=== PATIENT | female | born 1965 | race Hispanic/Latino ===

== ENCOUNTER 2017-11-01 00:24 | Observation (INO) | payer BC ==
[2017-11-01] MEDS ORDERED: NA CHLORIDE 0.9% 1,000 ML ONE (01:07)
[2017-11-01 01:27] LABS: Absolute Monocytes 0.3 K/uL (0.1-1.3); Absolute Neutrophil 2.3 K/uL (1.8-8.0); Basophils % 0.4 % (0-1.3); Eosinophils % 2.7 % (0-4.4); Hematocrit 37.1 % (36.0-45.0); Lymphocytes % 41.8 % (15.3-44.8); MCH 22.6 pg (27.0-35.0); MCV 70.8 fL (80-100); MPV 9.4 fL (7.6-11.3); Monocytes % 7.1 % (3.3-12.3); RBC Red Blood Cell Count 5.23 M/uL (3.86-4.86)
[2017-11-01 01:30] LABS: Protime INR 0.98
[2017-11-01 01:47] LABS: Urine Blood 2+ (NEG); Urine Glucose NEGATIVE (NEG); Urine Protein NEGATIVE (NEG); Urine Specific Gravity 1.015 (1.005-1.030); Urine pH 5.5 (5.0-7.0)
[2017-11-01 01:50] LABS: ALT/SGPT 46 U/L (12-78); AST/SGOT 33 U/L (15-37); Alkaline Phosphatase 147 U/L (45-117); BUN Blood Urea Nitrogen 10 mg/dL (7-18); Bicarbonate 28 mmol/L (21-32); Bilirubin Direct 0.2 mg/dL (0-0.2); Bilirubin Total 0.6 mg/dL (0.2-1.0); Creatine Phosphokinase 139 U/L (26-192); Glucose Level 99 mg/dL (74-106); Lipase 243 U/L (73-393); Magnesium 1.9 mg/dL (1.8-2.4); NT PRO-BNP 32 pg/mL (<125); Potassium 3.5 mmol/L (3.5-5.1); Protein, Total 7.8 g/dL (6.4-8.2); Sodium Level 143 mmol/L (136-145)
[2017-11-01] MEDS ORDERED: ASPIRIN 81 MG CHEWABLE TABLET ONE (01:58)
--- NOTE | 2017-11-01 01:58 | EDPHYS ---
Physician Documentation [facility] Name: Katy Randall Age: 52 yrs Sex: Female : 1965 Arrival Date: 11/01/2017 Time: 00:25 Bed 17 Private MD: Willie Hernández B ED Physician Dominik Iqbal HPI: 11/01 01:54 This 52 yrs old Female presents to ER via Ambulatory with complaints of venancio Dizziness, Vision Problem, Chest Pain. 01:54 The patient presents with dizziness, generalized weakness, lightheadedness. Onset: The venancio symptoms/episode began/occurred 3 day(s) ago. Context: occurred at home. Modifying factors: The symptoms are alleviated by nothing, the symptoms are aggravated by nothing. Associated signs and symptoms: The patient has no apparent associated signs or symptoms. Severity of symptoms: At their worst the symptoms were mild moderate in the emergency department the symptoms are unchanged. Patient's baseline: Neuro: alert and fully oriented. The patient has not experienced similar symptoms in the past. 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 ak1 Historical: - Allergies: 00:45 No Known Allergies; ak1 - Home Meds: 00:45 Iron CR Oral [Active]; ak1 - PMHx: 00:45 Anemia; Polio; Migraines; ak1 - PSHx: 00:45 Knee surgery; ; Cholecystectomy; ak1 - Immunization history:: Adult Immunizations unknown. - Social history:: Smoking status: Patient/guardian denies using tobacco. - Ebola Screening: : No symptoms or risks identified at this time. - Family history:: not pertinent. ROS: 01:54 Constitutional: Negative for fever, chills, and weight loss, Eyes: Negative for injury, venancio pain, redness, and discharge, ENT: Negative for injury, pain, and discharge, Neck: Negative for injury, pain, and swelling, Respiratory: Negative for shortness of breath, cough, wheezing, and pleuritic chest pain, Abdomen/GI: Negative for abdominal pain, nausea, vomiting, diarrhea, and constipation, Back: Negative for injury and pain. 01:54 : Negative for injury, bleeding, discharge, and swelling, MS/Extremity: Negative for injury and deformity, Skin: Negative for injury, rash, and discoloration, Neuro: Negative for headache, weakness, numbness, tingling, and seizure, Psych: Negative for depression, anxiety, suicide ideation, homicidal ideation, and hallucinations, Allergy/Immunology: Negative for hives, rash, and allergies, Endocrine: Negative for neck swelling, polydipsia, polyuria, polyphagia, and marked weight changes, Hematologic/Lymphatic: Negative for swollen nodes, abnormal bleeding, and unusual bruising. 01:54 Cardiovascular: Positive for chest pain. Exam: 01:54 Constitutional: This is a well developed, well nourished patient who is awake, alert, venancio and in no acute distress. Head/Face: Normocephalic, atraumatic. Eyes: Pupils equal round and reactive to light, extra-ocular motions intact. Lids and lashes normal. Conjunctiva and sclera are non-icteric and not injected. Cornea within normal limits. Periorbital areas with no swelling, redness, or edema. ENT: Nares patent. No nasal discharge, no septal abnormalities noted. Tympanic membranes are normal and external auditory canals are clear. Oropharynx with no redness, swelling, or masses, exudates, or evidence of obstruction, uvula midline. Mucous membranes moist. Neck: Trachea midline, no thyromegaly or masses palpated, and no cervical lymphadenopathy. Supple, full range of motion without nuchal rigidity, or vertebral point tenderness. No Meningismus. Chest/axilla: Normal chest wall appearance and motion. Nontender with no deformity. No lesions are appreciated. Cardiovascular: Regular rate and rhythm with a normal S1 and S2. No gallops, murmurs, or rubs. Normal PMI, no JVD. No pulse deficits. Respiratory: Lungs have equal breath sounds bilaterally, clear to auscultation and percussion. No rales, rhonchi or wheezes noted. No increased work of breathing, no retractions or nasal flaring. Abdomen/GI: Soft, non-tender, with normal bowel sounds. No distension or tympany. No guarding or rebound. No evidence of tenderness throughout. Back: No spinal tenderness. No costovertebral tenderness. Full range of motion. Female : Normal external genitalia. Skin: Warm, dry with normal turgor. Normal color with no rashes, no lesions, and no evidence of cellulitis. MS/ Extremity: Pulses equal, no cyanosis. Neurovascular intact. Full, normal range of motion. Neuro: Awake and alert, GCS 15, oriented to person, place, time, and situation. Cranial nerves II-XII grossly intact. Motor strength 5/5 in all extremities. Sensory grossly intact. Cerebellar exam normal. Normal gait. Vital Signs: 00:45 BP 149 / 93; Pulse 98; Resp 18; Temp 98.4; Pulse Ox 97% on R/A; Weight 92.08 kg (R); ak1 Height 5 ft. 4 in. (162.56 cm) (R); Pain 4/10; 01:45 BP 136 / 78; Pulse 90; Resp 16 S; Pulse Ox 98% on R/A; bs1 02:45 BP 121 / 108; Pulse 83; Resp 17 S; Pulse Ox 100% on R/A; bs1 03:45 BP 132 / 76; Pulse 91; Resp 17; Temp 98(O); Pulse Ox 96% on R/A; Pain 0/10; bs1 00:45 Body Mass Index 34.84 (92.08 kg, 162.56 cm) ak1 MDM: 00:42 Patient medically screened. [facility] 01:54 Data reviewed: vital signs, nurses notes, lab test result(s), EKG, radiologic studies, [facility] CT scan, plain films. 11/01 00:43 Order name: Basic Metabolic Panel venancio 11/01 00:43 Order name: CBC with Diff; Complete Time: 01:53 venancio 11/01 00:43 Order name: Ckmb; Complete Time: 02:57 venancio 11/01 00:43 Order name: CPK; Complete Time: 02:57 venancio 11/01 00:43 Order name: LFT's; Complete Time: 02:57 venancio 11/01 00:43 Order name: Magnesium; Complete Time: 02:57 venancio 11/01 00:43 Order name: NT PRO-BNP; Complete Time: 02:57 venancio 11/01 00:43 Order name: PT-INR; Complete Time: :53 venancio 11/01 00:43 Order name: Ptt, Activated; Complete Time: 01:53 venancio 11/01 00:43 Order name: Troponin (emerg Dept Use Only); Complete Time: 01:53 venancio 11/01 00:43 Order name: Lipase; Complete Time: 02:57 venancio 11/01 00:43 Order name: Basic Metabolic Panel; Complete Time: 02:57 EDMS 07/10 01:43 Order name: Urine Dipstick--Ancillary (enter results); Complete Time: 01:53 [facility] 11/01 01:43 Order name: Urine --Ancillary (enter results); Complete Time: :53 [facility] 11/01 00:43 Order name: XRAY Chest (1 view) [facility] 11/01 00:43 Order name: EKG; Complete Time: 00:44 [facility] 11/01 00:43 Order name: Cardiac monitoring; Complete Time: :30 [facility] 11/01 00:43 Order name: EKG - Nurse/Tech; Complete Time: 01:02 [facility] 11/01 00:43 Order name: IV Saline Lock; Complete Time: : [facility] 11/01 00:43 Order name: Labs collected and sent; Complete Time: [facility] 11/01 00:43 Order name: O2 Per Protocol; Complete Time: :30 [facility] 11/01 00:43 Order name: O2 Sat Monitoring; Complete Time: :30 [facility] 11/01 00:43 Order name: Urine Dipstick-Ancillary (obtain specimen); Complete Time: 01: [facility] 11/01 01:53 Order name: CT Head Brain wo Cont [facility] 11/01 02:01 Order name: CONS Physician Consult EDGA Administered Medications: 01:30 Drug: NS 0.9% 1000 ml Route: IV; Rate: 125 ml/hr; Site: right antecubital; bs1 04:18 Follow up: IV Status: Infusion continued upon admission bs1 01:57 Drug: Aspirin 162 mg Route: PO; bs1 04:19 Follow up: Response: No adverse reaction bs1 04:10 Drug: Lovenox 90 mg Route: Sub-Q; Site: right lower abdomen; bs1 04:18 Follow up: Response: No adverse reaction bs1 Disposition: 11/01/17 01:57 Hospitalization ordered by Ridge Sue for Observation. Preliminary diagnosis are Other chest pain, Dizziness and giddiness. - Bed requested for Telemetry/MedSurg (observation). - Status is Observation. bs1 - Condition is Stable. - Problem is new. - Symptoms have improved. UTI on Admission? No Signatures: Dispatcher [employer] EDGA Nila Juarez RN RN mw Anderson, Corey, MD MD cha Krenek, Amber, RN RN ak1 Regine Woodruff RN RN bs1 Corrections: (The following items were deleted from the chart) 02:09 01:57 Hospitalization Ordered by Ridge Sue MD for Observation. Preliminary mw diagnosis is Other chest pain; Dizziness and giddiness. Bed requested for Telemetry/MedSurg (observation). Status is Observation. Condition is Stable. Problem is new. Symptoms have improved. UTI on Admission? No. [facility] 04:23 02:09 11/01/2017 01:57 Hospitalization Ordered by Ridge Sue MD for Observation. bs1 Preliminary diagnosis is Other chest pain; Dizziness and giddiness. Bed requested for Telemetry/MedSurg (observation). Status is Observation. Condition is Stable. Problem is new. Symptoms have improved. UTI on Admission? No. mw
--- NOTE | 2017-11-01 01:58 | ER ---
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 bilateral eye pain and redness X2 days. Transition of care: patient was not received from another setting of care. Onset of symptoms is unknown. Risk Assessment: Do you want to hurt yourself or someone else? Patient reports no desire to harm self or others. Initial Sepsis Screen: Does the patient meet any 2 criteria? No. Patient's initial sepsis screen is negative. Does the patient have a suspected source of infection? No. Patient's initial sepsis screen is negative. Care prior to arrival: None. 00:42 Method Of Arrival: Ambulatory ak1 00:42 Acuity: ALEXEY 3 ak1 Triage Assessment: 00:45 General: Appears in no apparent distress. Behavior is calm, cooperative. 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 ak1 Historical: - Allergies: 00:45 No Known Allergies; ak1 - Home Meds: 00:45 Iron CR Oral [Active]; ak1 - PMHx: 00:45 Anemia; Polio; Migraines; ak1 - PSHx: 00:45 Knee surgery; ; Cholecystectomy; ak1 - Immunization history:: Adult Immunizations unknown. - Social history:: Smoking status: Patient/guardian denies using tobacco. - Ebola Screening: : No symptoms or risks identified at this time. - Family history:: not pertinent. Screenin:46 Abuse screen: Denies threats or abuse. Denies injuries from another. Nutritional ak1 screening: No deficits noted. Tuberculosis screening: No symptoms or risk factors identified. Fall Risk Ambulatory Aid- Crutches/Cane/Walker (15 pts). Assessment: 00:55 General: Appears in no apparent distress. uncomfortable, Behavior is cooperative, bs1 appropriate for age, flat. Pain: Complains of pain in left side of chest Pain does not radiate. Pain began gradually. 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 Gait is steady, Speech is normal, Facial symmetry appears normal, Pupils are PERRLA, Intact. Neuro: Reports blurred vision dizziness, headache weakness. Cardiovascular: Reports chest pain, Denies shortness of breath, Heart tones S1 S2 present Capillary refill < 3 seconds Patient's skin is warm and dry. Respiratory: Airway is patent Trachea midline Respiratory effort is even, unlabored, Respiratory pattern is regular, symmetrical. GI: No signs and/or symptoms were reported involving the gastrointestinal system. : Reports vaginal bleeding that is spotty, x3 days. EENT: Eyes bilateral eyes slightly red. Derm: Skin is intact, Skin is pink, warm \\T\\ dry. normal. Musculoskeletal: Circulation, motion, and sensation intact. Capillary refill < 3 seconds, Range of motion: intact in all extremities. 02:00 Reassessment: No changes from previously documented assessment. Patient and/or family bs1 updated on plan of care and expected duration. Pain level reassessed. Patient is alert, oriented x 3, equal unlabored respirations, skin warm/dry/pink. 03:45 Reassessment: Patient appears in no apparent distress at this time. Patient and/or bs1 family updated on plan of care and expected duration. Pain level reassessed. Patient is alert, oriented x 3, equal unlabored respirations, skin warm/dry/pink. Patient being admitted, pending results of head CT Patient states symptoms have improved. Vital Signs: 00:45 BP 149 / 93; Pulse 98; Resp 18; Temp 98.4; Pulse Ox 97% on R/A; Weight 92.08 kg (R); ak1 Height 5 ft. 4 in. (162.56 cm) (R); Pain 4/10; 01:45 BP 136 / 78; Pulse 90; Resp 16 S; Pulse Ox 98% on R/A; bs1 02:45 BP 121 / 108; Pulse 83; Resp 17 S; Pulse Ox 100% on R/A; bs1 03:45 BP 132 / 76; Pulse 91; Resp 17; Temp 98(O); Pulse Ox 96% on R/A; Pain 0/10; bs1 00:45 Body Mass Index 34.84 (92.08 kg, 162.56 cm) ak1 ED Course: 00:25 Patient arrived in ED. ds1 00:25 Willie Hernández MD is Private Physician. ds1 00:42 Dominik Iqbal MD is Attending Physician. venancio 00:44 Triage completed. ak1 00:45 Arm band placed on Patient placed in an exam room, on a stretcher, on pulse oximetry, ak1 Patient notified of wait time. 00:45 Inserted saline lock: 20 gauge in right antecubital area, using aseptic technique. bs1 Blood collected. 00:46 Patient has correct armband on for positive identification. Bed in low position. Call ak1 light in reach. Side rails up X 1. Pulse ox on. NIBP on. 00:46 Patient maintains SpO2 saturation greater than 95% on room air. ak1 00:55 X-ray completed. Portable x-ray completed in exam room. Patient tolerated procedure kw well. 00:56 XRAY Chest (1 view) In Process Unspecified. EDMS 01:01 Regine Woodruff RN is Primary Nurse. bs1 01:57 Ridge Sue MD is Hospitalizing Provider. venancio 04:20 No provider procedures requiring assistance completed. Patient admitted, IV remains in bs1 place. intact. Administered Medications: 01:30 Drug: NS 0.9% 1000 ml Route: IV; Rate: 125 ml/hr; Site: right antecubital; bs1 04:18 Follow up: IV Status: Infusion continued upon admission bs1 01:57 Drug: Aspirin 162 mg Route: PO; bs1 04:19 Follow up: Response: No adverse reaction bs1 04:10 Drug: Lovenox 90 mg Route: Sub-Q; Site: right lower abdomen; bs1 04:18 Follow up: Response: No adverse reaction bs1 Outcome: 01:57 Decision to Hospitalize by Provider. venancio 04:21 Admitted to Med/surg accompanied by tech, via wheelchair, room 225, with chart, Report bs1 called to JODI Quiles 04:21 Condition: stable 04:21 Instructed on the need for admit. 04:23 Patient left the ED. bs1 Signatures: Dispatcher [employer] EDFL Dominik Iqbal MD MD cha Sanford, Demi ds1 Mikki Triplett Amber, RN RN ak1 Regine Woodruff, RN RN bs1
[2017-11-01 02:00] LABS: CKMB Creatine Kinase MB < 1.0 ng/mL (0.3-3.6)
--- NOTE | 2017-11-01 03:31 | P.HP ---
Certification for Inpatient Patient admitted to: Observation With expected LOS: <2 Midnights Practitioner: I am a practitioner with admitting privileges, knowledge of patient current condition, hospital course, and medical plan of care. Services: Services provided to patient in accordance with Admission requirements found in Title 42 Section 412.3 of the Code of Federal Regulations Patient History Date of Service: 11/01/17 Reason for admission: chest pain History of Present Illness: Ms Randall is a 52 years old woman with history migraines, Polio and anemia, came to ED complaining of chest pain. Her symptoms started about 3 days ago, on and off. Today, the pain is constant, substernal in location, pressure like, 10/ 10 of intensity, associated with SOB, nausea and fatigue. She denied diaphoresis or palpitations. The pain does not radiate. She has never had this pain before. EKG shows non-specific T wave inversion, initial Trop I, is negative. Allergies No Known Allergies Allergy (Unverified 12/26/15 00:33) Home medications list reviewed: Yes - Past Medical/Surgical History -: anemia -: polio -: migraines -: knee surgery -: -: Cholecystectomy - Family History Family History: Reviewed- Non-Contributory - Social History Smoking Status: Never smoker Alcohol use: No CD- Drugs: No Caffeine use: No Place of Residence: Home Review of Systems 10-point ROS is otherwise unremarkable Physical Examination - Physical Exam General: Alert, In no apparent distress HEENT: Atraumatic, PERRLA, Mucous membr. moist/pink, EOMI, Sclerae nonicteric Neck: Supple, 2+ carotid pulse no bruit, No LAD, Without JVD or thyroid abnormality Respiratory: Clear to auscultation bilaterally, Normal air movement Cardiovascular: Regular rate/rhythm, Normal S1 S2 Gastrointestinal: Normal bowel sounds, No tenderness Musculoskeletal: No tenderness Integumentary: No rashes Neurological: Normal speech, Normal strength at 5/5 x4 extr, Normal tone, Normal affect Lymphatics: No axilla or inguinal lymphadenopathy - Studies Laboratory Data (last 24 hrs) 11/01/17 01:00: PT 11.6, INR 0.98, APTT 27.9 11/01/17 01:00: WBC 4.9, Hgb 11.8 L, Hct 37.1, Plt Count 133 L 11/01/17 01:00: Sodium 143, Potassium 3.5, BUN 10, Creatinine 0.90, Glucose 99, Magnesium 1.9, Total Bilirubin 0.6, AST 33, ALT 46, Alkaline Phosphatase 147 H, Lipase 243 Assessment and Plan - Problems (Diagnosis) (1) Chest pain Current Visit: Yes Status: Acute Qualifiers: Chest pain type: precordial pain Qualified Code(s): R07.2 - Precordial pain (2) Migraines Current Visit: Yes Status: Acute - Plan Ms Randall will be admitted to the hospital due to chest pain. EKG shows Non- specific T was inversion, initial troponin I is negative. Will order serial tropoinin I, and EKG - Advance Directives Does patient have a Living Will: No Does patient have a Durable POA for Healthcare: No - Code Status/Comfort Care Code Status Assessed: Yes Code Status: Full Code
[2017-11-01] MEDS ORDERED: ENOXAPARIN 100 MG/ML SYR SQ ONE (04:06)
[2017-11-01 04:34] VITALS: O2SAT 96
[2017-11-01] MEDS ORDERED: ACETAMINOPHEN 500 MG TAB PO PRN (05:14)
[2017-11-01] MEDS ORDERED: ONDANSETRON 4 MG/2 ML VIAL IV PRN (05:14)
[2017-11-01] MEDS ORDERED: NA CHLORIDE 0.9% 1,000 ML IV SCH (05:14)
[2017-11-01 05:38] VITALS: BMI 35.2
[2017-11-01] MEDS ORDERED: POTASSIUM 25 MEQ EFFERV TAB PO ONE (06:30)
--- NOTE | 2017-11-01 08:36 | EKG ---
Test Date: 2017-11-01 Test Time: 00:44:43 Director Shopper Marketing: JORGE ALBERTO MEASUREMENT RESULTS: Intervals: Rate: 87 AL: 172 QRSD: 94 QT: 358 QTc: 430 [place]: P: 49 AL: 172 QRS: 45 T: 55 INTERPRETIVE STATEMENTS: Normal sinus rhythm Cannot rule out Anterior infarct, age undetermined Abnormal ECG Compared to ECG 12/25/2015 19:50:43 Myocardial infarct finding now present T-wave abnormality no longer present Electronically Signed On 11-01-17 08:35:11 CDT by Law Faustin
--- NOTE | 2017-11-01 08:41 | RAD REPORT ---
EXAM DESCRIPTION: RAD - Chest Single View - 11/01/2017 12:56 am CLINICAL HISTORY: CHEST PAIN Chest pain. COMPARISON: No comparisons FINDINGS: Portable technique limits examination quality. The lungs are grossly clear. The heart is normal in size. No displaced fractures. IMPRESSION: No acute intrathoracic process suspected.
--- NOTE | 2017-11-01 08:59 | RAD REPORT ---
EXAM DESCRIPTION: CT - Head Brain Wo Cont - 11/01/2017 6:43 am CLINICAL HISTORY: HEADACHE COMPARISON: Head Brain Wo Cont dated 12/25/2015 TECHNIQUE: All CT scans are performed using dose optimization technique as appropriate and may inclu de automated exposure control or mA/KV adjustment according to patient size. FINDINGS: No intracranial hemorrhage, hydrocephalus or extra-axial fluid collection.No areas of brai n edema or evidence of midline shift. The paranasal sinuses and mastoids are clear. The calvarium is intact. IMPRESSION: No acute intracranial abnormality.
[2017-11-01] MEDS ORDERED: ENOXAPARIN 40 MG/0.4 ML SQ SCH (09:00)
[2017-11-01] MEDS ORDERED: ALPRAZOLAM 0.25 MG TABLET PO PRN (11:34)
[2017-11-01 17:23] VITALS: BP 141/81; TEMP 98.3
--- NOTE | 2017-11-02 02:15 | CON ---
Date of Consultation: 11/01/[address] to Dr[address] Figueroa's service on 11/01/2017. I saw the patient on 11/01/2017. Reason For Consultation: Chest pain and hypertension. History Of Present Illness: Ms. Randall is a 52-year-old woman, has had a history of polio as a chil d when she was [id number]. She has had history of chronic anemia for which she used to get transfu claudette at one point. She does not have any past cardiac history. She normally sees Dr. Willie Hernández in the clinic. She came in with chest pressure that has been going on for 2 days, slightly hypertens chiquis, dizzy, short of breath. Denied PND, orthopnea, pedal edema, palpitations, or syncope. Allergies: NONE. Review of Systems: Positive for some stress. Family History: Positive for lupus, coronary artery disease, and parkinsonism. Social History: Negative for tobacco, alcohol, or drugs. Physical Examination: Vital Signs: Stable. She was afebrile. HEENT Exam: Negative. Neck: Supple without any bruit, lymphadenopathy, JVD, or thyromegaly. Chest: Clear to auscultation and percussion. Cardiac Exam: Revealed a regular rhythm and rate without any murmurs, gallops, or rubs. Abdomen: Benign. Extremities: Revealed no clubbing, cyanosis, or edema. Diagnostic Data: All within normal limits. Impression And Plan: Atypical chest pain, more likely secondary to hypertension or gastroesophageal reflux. Certainly could be gastritis or esophagitis as well. I will suggest the use of proton pump inhibitor when she goes home. I think an echocardiogram is reasonable considering her history of jina io. I do not feel there is a need to do any stress testing on her at this point. I will discuss the case further with Dr. Figueroa. We will see what her echocardiogram shows. Ms. Randall did describe s ome episodes prior to her admission of feeling very weak and dizzy when she stands up and she certain ly may have some issues with orthostatic hypotension. I will be careful with blood pressure treatmen t. I would definitely avoid diuretics if she goes home with any antihypertensive. She will follow u p with Dr. Hernández and her neurologist in the near future. CARLITO/LAURENCE Voice ID: [id number] Report ID: [id number]
--- NOTE | 2017-11-02 07:24 | ECHO ---
HEIGHT: 5 ft 4 in WEIGHT: 205 lb 2 oz DATE OF STUDY: 11/01/[address]: Law Faustin MD 2-DIMENSIONAL: YES M.MODE: YES DOPPLER: YES COLOR FLOW: YES TDS: PORTABLE: DEFINITY: BUBBLE STUDY: DIAGNOSIS: CHEST PAIN CARDIAC HISTORY: CATHERIZATION: NO SURGERY: NO PROSTHETIC VALVE: NO PACEMAKER: NO MEASUREMENTS (cm) DIASTOLIC (NORMALS) SYSTOLIC (NORMALS) IVSd 1.1 (0.6-1.2) LA Diam 2.5 (1.9-4.0) LVEF 54% LVIDd 4.4 (3.5-5.7) LVIDs 3.2 (2.0-3.5) %FS 28% LVPWd 1.0 (0.6-1.2) Ao Diam 3.4 (2.0-3.7) 2 DIMENSIONAL ASSESSMENT: RIGHT ATRIUM: NORMAL LEFT ATRIUM: NORMAL RIGHT VENTRICLE: NORMAL LEFT VENTRICLE: NORMAL TRICUSPID VALVE: NORMAL MITRAL VALVE: NORMAL PULMONIC VALVE: NORMAL AORTIC VALVE: NORMAL PERICARDIAL EFFUSION: NONE AORTIC ROOT: NORMAL LEFT VENTRICULAR WALL MOTION: NORMAL DOPPLER/COLOR FLOW: MILD TRICUSPID AND AORTIC REGURGITATION COMMENTS: TECHNICALLY DIFFICULT STUDY. MILD AORTIC AND TRICUSPID REGURGITATION. NORMAL LEFT VENTRICULAR SIZE AND FUNCTION. NO WALL MOTION ABNORMALITY. NO EFFUSION. TECHNOLOGIST: YUE HARP
--- NOTE | 2017-11-02 14:12 | DS ---
Date of Discharge: 11/01/2017 Consultants: Dr. Faustin with Cardiology. Admitting Diagnosis: 1. Chest pain, rule out acute coronary syndrome. 2. Migraine headache. Discharge Diagnoses: 1. Chest pain. Acute coronary syndrome ruled out. 2. History of migraines. 3. History of polio. 4. Anemia, microcytic hypochromic. 5. Obesity. 6. Anxiety Hospital Course: The patient is a 52-year-old female who comes in with chest pain. It has been going on about past 3 days. The patient's workup initially was negative. She was admitted for further observation. Her troponin levels were negative x3. Her white blood cell count was normal. She was found to be anemic with low MCV, likely anemia of iron deficiency. She did have some history of migraines. Head CT scan was also done, which showed no acute intracranial abnormality. Chest x-ray showed no acute intrathoracic process suspected. Her EKG did not show any acute changes. The patient was seen by Dr. Faustin who recommended echocardiogram. Echocardiogram was normal. He did not recommend a nuclear stress test at this time. Her symptoms were noncardiac. The patient did report some high levels of stress recently. She was given a trial of anxiolytics. The patient was then cleared for discharge from Cardiology standpoint and will be sent home in a stable condition. Activity: As tolerated. Medications: As per medication reconciliation list. Followup: Follow up with PCP in 2-3 days. Follow up with foam rubber fabricator, Dr. Faustin in 2 weeks for outpatient stress test. Return to ER for worsening condition. Diet: Regular. Activity: As tolerated. Physical Examination: General: Awake, alert, oriented, no acute distress CV: S1, S2. No murmurs. Respiratory: Clear to auscultation bilaterally. No wheezing. Gastrointestinal: Abdomen is soft, nontender, nondistended. Positive bowel sounds. Extremities: No clubbing, cyanosis, edema. SA/MODL Voice ID: [id number] Report ID: [id number] MTDMc
== END 2017-11-01 17:30 | disposition home or self-care (01) ==
LOC: ER 00:24 → ERHOLD 01:58 → 2ND 03:41
PROVIDERS: ADMIT Internal Medicine; ATTEND Internal Medicine
DX: R07.9 Chest pain, unspecified (principal); D50.9 Iron deficiency anemia, unspecified; E66.9 Obesity, unspecified; Z68.35 Body mass index [BMI] 35.0-35.9, adult; D64.9 Anemia, unspecified; F41.9 Anxiety disorder, unspecified; G43.909 Migraine, unspecified, not intractable, without status migrainosus; Z86.12 Personal history of poliomyelitis
CPT/HCPCS: 36415; 70450; 71045; 80048; 80076; 81003; 81025; 82550; 82553; 83690; 83735; 83880; 84484; 85025; 85610; 85730; 93005; 93306; 96360; 96361; 96372; 99285; G0378; J1650; J7030

== ENCOUNTER 2019-09-29 22:10 | Observation (INO) | payer BC, OTHER ==
[2019-09-29 22:34] LABS: Absolute Lymphocytes (CBC) 2.5 K/uL (0.7-4.9); Basophils % 0.7 % (0-1.3); Hematocrit 44.5 % (36.0-45.0); Lymphocytes % 41.4 % (15.3-44.8); MPV 9.3 fL (7.6-11.3); RBC Red Blood Cell Count 5.13 M/uL (3.86-4.86)
[2019-09-29 22:37] LABS: Protime INR 0.97
[2019-09-29 22:53] LABS: ALT/SGPT 73 U/L (12-78); AST/SGOT 46 U/L (15-37); Alkaline Phosphatase 133 U/L (45-117); BUN Blood Urea Nitrogen 15 mg/dL (7-18); Bicarbonate 23 mmol/L (21-32); Bilirubin Direct 0.2 mg/dL (0-0.2); Bilirubin Total 0.6 mg/dL (0.2-1.0); Glucose Level 130 mg/dL (74-106); Magnesium 2.1 mg/dL (1.8-2.4); NT PRO-BNP 27 pg/mL (<125); Potassium 3.7 mmol/L (3.5-5.1); Protein, Total 7.8 g/dL (6.4-8.2); Sodium Level 143 mmol/L (136-145); Troponin (Emerg Dept Use Only) < 0.02 ng/mL (0.0-0.045)
[2019-09-29] MEDS ORDERED: ASPIRIN 81 MG CHEWABLE TABLET ONE (23:45)
[2019-09-30] MEDS ORDERED: MORPHINE 2 MG/ML SYR ONE (00:32)
--- NOTE | 2019-09-30 00:45 | EDPHYS ---
Physician Documentation [facility] Name: Katy Randall Age: 54 yrs Sex: Female : 1965 Arrival Date: 09/29/2019 Time: 22:12 Bed 3 Private MD: Rosy Cortes H ED Physician Meet Smiley HPI: 09/28 22:40 This 54 yrs old Female presents to ER via Wheelchair with complaints of Chest mh7 Pain > 30 y/o. 22:40 The patient or guardian reports chest pain that is located primarily in the substernal mh7 area. Onset: this morning. The pain does not radiate. Associated signs and symptoms: Pertinent positives: nausea, shortness of breath, Pertinent negatives: abdominal pain, cough, diaphoresis, dizziness, headache, lower extremity pain, lower extremity swelling, lightheadedness, near syncope, palpitations, recent travel, syncope, vomiting. The chest pain is described as a pressure. Duration: The patient or guardian reports multiple episodes, that are intermittent, that wax and wane, with no pattern. Modifying factors: The symptoms are alleviated by nothing. the symptoms are aggravated by nothing. Severity of pain: At its worst the pain was moderate just prior to arrival, in the emergency department the pain has improved mildly. Historical: - Allergies: 22:23 No Known Allergies; lp1 - Home Meds: 22:23 Tramadol Oral [Active]; lp1 - PMHx: 22:23 Anemia; Migraines; Polio; Back pain; lp1 - PSHx: 22:23 ; Cholecystectomy; lp1 - Immunization history:: Adult Immunizations up to date. - Social history:: Smoking status: Patient denies any tobacco usage or history of. ROS: 22:40 Constitutional: Negative for fever, chills, and weight loss, Eyes: Negative for injury, mh7 pain, redness, and discharge, ENT: Negative for injury, pain, and discharge, Neck: Negative for injury, pain, and swelling, Abdomen/GI: Negative for abdominal pain, nausea, vomiting, diarrhea, and constipation, Back: Negative for injury and pain, : Negative for injury, bleeding, discharge, and swelling, MS/Extremity: Negative for injury and deformity, Skin: Negative for injury, rash, and discoloration, Neuro: Negative for headache, weakness, numbness, tingling, and seizure, Psych: Negative for depression, anxiety, suicide ideation, homicidal ideation, and hallucinations, Allergy/Immunology: Negative for hives, rash, and allergies, Endocrine: Negative for neck swelling, polydipsia, polyuria, polyphagia, and marked weight changes, Hematologic/Lymphatic: Negative for swollen nodes, abnormal bleeding, and unusual bruising. Exam: 22:40 Constitutional: This is a well developed, well nourished patient who is awake, alert, mh7 and in no acute distress. Head/Face: Normocephalic, atraumatic. Eyes: Pupils equal round and reactive to light, extra-ocular motions intact. Lids and lashes normal. Conjunctiva and sclera are non-icteric and not injected. Cornea within normal limits. Periorbital areas with no swelling, redness, or edema. Neck: Trachea midline, no thyromegaly or masses palpated, and no cervical lymphadenopathy. Supple, full range of motion without nuchal rigidity, or vertebral point tenderness. No Meningismus. Chest/axilla: Normal chest wall appearance and motion. Nontender with no deformity. No lesions are appreciated. Cardiovascular: Regular rate and rhythm with a normal S1 and S2. No gallops, murmurs, or rubs. Normal PMI, no JVD. No pulse deficits. Respiratory: Lungs have equal breath sounds bilaterally, clear to auscultation and percussion. No rales, rhonchi or wheezes noted. No increased work of breathing, no retractions or nasal flaring. Abdomen/GI: Soft, non-tender, with normal bowel sounds. No distension or tympany. No guarding or rebound. No evidence of tenderness throughout. Back: No spinal tenderness. No costovertebral tenderness. Full range of motion. Skin: Warm, dry with normal turgor. Normal color with no rashes, no lesions, and no evidence of cellulitis. MS/ Extremity: Pulses equal, no cyanosis. Neurovascular intact. Full, normal range of motion. Neuro: Awake and alert, GCS 15, oriented to person, place, time, and situation. Cranial nerves II-XII grossly intact. Motor strength 5/5 in all extremities. Sensory grossly intact. Cerebellar exam normal. Normal gait. Psych: Awake, alert, with orientation to person, place and time. Behavior, mood, and affect are within normal limits. 22:40 ECG was reviewed by the Attending Physician. [facility] Vital Signs: 22:20 Weight 95.25 kg (R); Height 5 ft. 4 in. (162.56 cm); Pain 8/10; lp1 22:25 BP 119 / 90; Pulse 91; Resp 12; Temp 98.7(O); Pulse Ox 97% on R/A; oe 23:00 BP 121 / 58; Pulse 90; Resp 16; Pulse Ox 97% on R/A; rv 09/29 00:00 BP 127 / 56; Pulse 87; Resp 15; Pulse Ox 98% on R/A; rv 02:04 BP 110 / 56; Pulse 75; Resp 17; Temp 98.5; Pulse Ox 96% on R/A; rv 09/28 22:20 Body Mass Index 36.05 (95.25 kg, 162.56 cm) lp1 MDM: 09/28 22:37 Patient medically screened. [facility] 09/29 00:42 Differential diagnosis: abnormal EKG, acute myocardial infarction, acute pericarditis, [facility] coronary artery disease chest wall pain, costochondritis, pericarditis, pneumonia, pulmonary embolus, stable angina. HEART Score: History: Moderately Suspicious (1), ECG: Non specific repolarization disturbance / LBTB / PM (1), Age: > 45 and < 65 years (1), Risk Factors: 1 or 2 risk factors (1), [+ Family HX] Troponin: < or = 1 x Normal Limit (0), Total Score = 4. The patient was given aspirin in the Emergency Department. Data reviewed: vital signs, nurses notes, lab test result(s), cardiac enzymes, CBC, electrolytes, urinalysis, EKG, radiologic studies, plain films. Data interpreted: supervisory examiner: rate is 87 beats/min, rhythm is normal sinus rhythm, regular, Interpretation: normal rate, normal rhythm, Pulse oximetry: on room air is 98 %. Interpretation: normal. Counseling: I had a detailed discussion with the patient and/or guardian regarding: the historical points, exam findings, and any diagnostic results supporting the discharge/admit diagnosis, lab results, radiology results, the need for further work-up and treatment in the hospital. 09/28 22:23 Order name: Basic Metabolic Panel; Complete Time: 23:22 rv 09/28 22:23 Order name: CBC with Diff; Complete Time: 23:22 rv 09/28 22:23 Order name: LFT's; Complete Time: 23:22 rv 09/28 22:23 Order name: Magnesium; Complete Time: 23:22 rv 09/28 22:23 Order name: NT PRO-BNP; Complete Time: 23:22 rv 09/28 22:23 Order name: PT-INR; Complete Time: 23:22 rv 09/28 22:23 Order name: Troponin (emerg Dept Use Only); Complete Time: 23:22 rv 09/28 23:32 Order name: DD mh7 09/28 23:33 Order name: D-Dimer; Complete Time: 00:08 EDTX 09/29 01:55 Order name: Lipid Profile EDTX 09/29 01:55 Order name: Lipid Profile EDTX 09/29 01:55 Order name: Troponin I EDTX 09/29 01:55 Order name: Troponin I [facility] 09/29 01:55 Order name: Troponin I EDTX 09/28 22:23 Order name: XRAY Chest (1 view) rv 09/28 22:23 Order name: EKG; Complete Time: 22:24 rv 09/28 22:23 Order name: Cardiac monitoring; Complete Time: 22:24 rv 09/28 22:23 Order name: EKG - Nurse/Tech; Complete Time: 22:24 rv 09/28 22:23 Order name: IV Saline Lock; Complete Time: 22:33 rv 09/28 22:23 Order name: Labs collected and sent; Complete Time: 22:34 rv 09/28 22:23 Order name: O2 Per Protocol; Complete Time: 22:24 rv 09/28 22:23 Order name: O2 Sat Monitoring; Complete Time: 22:24 rv 09/29 01:55 Order name: Heart Healthy EDTX 09/29 01:55 Order name: Echo with Doppler EDTX 09/29 01:55 Order name: EKG Electrocardiogram EDTX 09/29 01:55 Order name: EKG Electrocardiogram EDTX EC/06 22:40 Rate is 89 beats/min. Rhythm is regular. QRS [place] is Normal. GA interval is normal. QRS mh7 interval is normal. QT interval is normal. No Q waves. T waves are Normal. No ST changes noted. Clinical impression: NSR w/ Non-specific ST/T Changes. Administered Medications: 23:39 Drug: Aspirin Chewable Tablet 324 mg Route: PO; jb4 09/29 02:05 Follow up: Response: No adverse reaction rv 00:27 Drug: morphine 2 mg {Note: RASS 0.} Route: IVP; Site: right antecubital; rv 02:04 Follow up: Response: Pain is decreased; RASS: Drowsy (-1) rv Disposition: 09/30/19 00:45 Hospitalization ordered by Inga Barrera for Observation. Preliminary diagnosis is Chest pain, unspecified. - Bed requested for Telemetry/MedSurg (observation). - Status is Observation. rv - Condition is Stable. - Problem is new. - Symptoms have improved. Signatures: Dispatcher [employer] EDMS Nila Juarez RN RN Arabella Sánchez, RN RN lp1 Ervin Boone, RN RN jb4 Chip Mari RN RN rv Meet Smiley MD MD mh7 Corrections: (The following items were deleted from the chart) 01:59 00:45 Hospitalization Ordered by Inga Barrera MD for Observation. Preliminary mw diagnosis is Chest pain, unspecified. Bed requested for Telemetry/MedSurg (observation). Status is Observation. Condition is Stable. Problem is new. Symptoms have improved. mh7 02:11 01:59 09/30/2019 00:45 Hospitalization Ordered by Inga Barrera MD for Observation. rv Preliminary diagnosis is Chest pain, unspecified. Bed requested for Telemetry/MedSurg (observation). Status is Observation. Condition is Stable. Problem is new. Symptoms have improved. mw
--- NOTE | 2019-09-30 00:45 | ER ---
Nurse's Notes [facility] Name: Katy Randall Age: 54 yrs Sex: Female : 1965 Arrival Date: 09/29/2019 Time: 22:12 Bed 3 Private MD: Rosy Cortes H Diagnosis: Chest pain, unspecified Presentation: 09/28 22:20 Chief complaint: Patient states: Chest pressure all day, worsening this evening; States lp1 feeling like something sitting on chest; beginning nausea. Coronavirus screen: Proceed with normal triage. Ebola Screen: No symptoms or risks identified at this time. Risk Assessment: Do you want to hurt yourself or someone else? Patient reports no desire to harm self or others. Onset of symptoms was September 29, 2019. 22:20 Method Of Arrival: Wheelchair lp1 22:20 Acuity: ALEXEY 3 lp1 22:36 Initial Sepsis Screen: Does the patient meet any 2 criteria? No. Patient's initial rv sepsis screen is negative. Does the patient have a suspected source of infection? No. Patient's initial sepsis screen is negative. Triage Assessment: 22:36 General: Appears comfortable. General: Behavior is calm, cooperative. Pain: Complains rv of pain in chest. Historical: - Allergies: 22:23 No Known Allergies; lp1 - Home Meds: 22:23 Tramadol Oral [Active]; lp1 - PMHx: 22:23 Anemia; Migraines; Polio; Back pain; lp1 - PSHx: 22:23 ; Cholecystectomy; lp1 - Immunization history:: Adult Immunizations up to date. - Social history:: Smoking status: Patient denies any tobacco usage or history of. Screenin:24 Abuse screen: Denies threats or abuse. Denies injuries from another. Nutritional lp1 screening: No deficits noted. Tuberculosis screening: No symptoms or risk factors identified. 22:36 Fall Risk None identified. rv Assessment: 22:35 General: Appears comfortable, Behavior is calm, cooperative. Pain: Complains of pain in rv chest Pain does not radiate. Pain began suddenly. Neuro: Level of Consciousness is awake, alert, obeys commands, Oriented to person, place, time, situation. Cardiovascular: Rhythm is sinus rhythm Chest pain is described as mild, quality is pressure, is located in chest wall. Respiratory: Reports shortness of breath at rest Airway is patent Respiratory effort is even, unlabored, Respiratory pattern is regular, symmetrical, Breath sounds are clear bilaterally. Derm: Skin is intact. 23:57 Reassessment: PT's son Bryan called. received from access code from son, updated son on jb4 patients status and plan of care. Call back number is [phone]. Vital Signs: 22:20 Weight 95.25 kg (R); Height 5 ft. 4 in. (162.56 cm); Pain 8/10; lp1 22:25 BP 119 / 90; Pulse 91; Resp 12; Temp 98.7(O); Pulse Ox 97% on R/A; oe 23:00 BP 121 / 58; Pulse 90; Resp 16; Pulse Ox 97% on R/A; rv 09/29 00:00 BP 127 / 56; Pulse 87; Resp 15; Pulse Ox 98% on R/A; rv 02:04 BP 110 / 56; Pulse 75; Resp 17; Temp 98.5; Pulse Ox 96% on R/A; rv 09/28 22:20 Body Mass Index 36.05 (95.25 kg, 162.56 cm) lp1 ED Course: 09/28 22:12 Patient arrived in ED. es 22:13 Rosy Cortes DO is Private Physician. es 22:22 Chip Mari, RN is Primary Nurse. rv 22:23 Triage completed. lp1 22:23 Arm band placed on. lp1 22:24 Patient has correct armband on for positive identification. Placed in gown. Bed in low lp1 position. Call light in reach. fish dressing machine feeder on. Pulse ox on. NIBP on. 22:25 Meet Smiley MD is Attending Physician. mh7 22:30 Inserted saline lock: 18 gauge in left antecubital area, using aseptic technique. Blood rv collected. 22:30 Initial lab(s) drawn, by me, sent to lab. rv 22:34 EKG done, by ED staff, reviewed by Meet Smiley MD. Patient maintains SpO2 saturation rv greater than 95% on room air. 22:36 XRAY Chest (1 view) In Process Unspecified. EDMS 09/29 00:44 Inga Barrera MD is Hospitalizing Provider. 7 02:04 No provider procedures requiring assistance completed. IV is patent, with fluids rv infusing freely, with good blood return, Patient admitted, IV remains in place. Administered Medications: 09/28 23:39 Drug: Aspirin Chewable Tablet 324 mg Route: PO; jb4 06 02:05 Follow up: Response: No adverse reaction rv 00:27 Drug: morphine 2 mg {Note: RASS 0.} Route: IVP; Site: right antecubital; rv 02:04 Follow up: Response: Pain is decreased; RASS: Drowsy (-1) rv Outcome: 00:45 Decision to Hospitalize by Provider. 7 02:05 Admitted to Med/surg accompanied by nurse, via wheelchair, room 209, Report called to nando BYRNE RN 02:05 Condition: good 02:05 Instructed on the need for admit, Demonstrated understanding of follow-up care. 02:11 Patient left the ED. rv Signatures: Dispatcher [employer] EDMarleni Hamlin Laura, RN RN lp1 Ervin Boone RN RN jb4 Shar Ho Ronaldo, RN RN rv Meet Smiley MD MD mh7
[2019-09-30] MEDS ORDERED: ALPRAZOLAM 0.25 MG TABLET PO PRN (01:51)
[2019-09-30] MEDS ORDERED: ACETAMINOPHEN 500 MG TAB PO PRN (01:51)
[2019-09-30] MEDS ORDERED: MORPHINE 4 MG/ML SYR IV PRN (01:51)
[2019-09-30 03:28] VITALS: BMI 36.0
[2019-09-30] MEDS: METOPROLOL TAR 50 MG TAB PO SCH ×3 (05:27→20:18)
[2019-09-30 06:37] LABS: HDL Cholesterol 51 mg/dL (40-60); LDL Cholesterol, Calculated 100 (<130); Troponin I < 0.02 ng/mL (0.0-0.045)
[2019-09-30] MEDS: ASPIRIN EC 81 MG TAB PO SCH (08:43)
[2019-09-30] MEDS: ENOXAPARIN 40 MG/0.4 ML SQ SCH (08:43)
--- NOTE | 2019-09-30 11:29 | RAD REPORT ---
EXAM DESCRIPTION: RAD - Chest Single View - 09/29/2019 10:36 pm CLINICAL HISTORY: Chest pain;SOB Chest pain. COMPARISON: Chest Single View dated 11/01/2017 FINDINGS: Portable technique limits examination quality. The lungs are grossly clear. The heart is normal in size. No displaced fractures. IMPRESSION: No acute intrathoracic process suspected.
[2019-09-30] MEDS ORDERED: TRAMADOL HCL 50 MG TAB PO PRN (13:33)
--- NOTE | 2019-10-01 05:59 | P.HP ---
Certification for Inpatient Patient admitted to: Observation With expected LOS: <2 Midnights Patient will require the following post-hospital care: None Practitioner: I am a practitioner with admitting privileges, knowledge of patient current condition, hospital course, and medical plan of care. Services: Services provided to patient in accordance with Admission requirements found in Title 42 Section 412.3 of the Code of Federal Regulations Patient History Date of Service: 09/30/19 Reason for admission: Chest pain rule out acute coronary syndrome History of Present Illness: Patient is a 54-year-old female came to the hospital with chest discomfort. Pain was mainly in the sternal region enjoy short of breath. She is having persistent chest pain for last 24 hr. Patient denies any history of heart disease. He does have a family history of heart disease with her father dying in his early 40s. Patient chest pain is not being relieved with current medication. She has had stressors but nothing out of the ordinary. Denies any history of hypertension or diabetes. She will be admitted to the hospital for rule out for acute coronary syndrome. Allergies No Known Allergies Allergy (Verified 09/30/19 02:32) Home Medications: ALPRAZolam [Xanax*] 0.25 mg PO TID PRN #30 tab 09/30/19 Metoprolol Tartrate [Lopressor*] 25 mg PO BID #60 tab 09/30/19 Tramadol HCl [Ultram] 1 tab PO Q4H PRN 09/30/19 - Past Medical/Surgical History Has patient received pneumonia vaccine in the past: No Diabetic: No -: anemia -: polio-right leg -: migraines -: night cramps -: anxiety -: back pain -: left leg knee surgery -: -: Cholecystectomy - Family History Mother Medical History: Hypertension Notes: polio Father Medical History: Heart disease Sister Medical History: Cancer, Other (see notes) Notes: lupus, fibromyalgia, parkinsons; brain cancer - Social History Smoking Status: Never smoker Alcohol use: No CD- Drugs: No Caffeine use: Yes Place of Residence: Home Review of Systems 10-point ROS is otherwise unremarkable Physical Examination - Vital Signs Temperature: 97.6 F Blood Pressure: 133/71 Pulse: 59 Respirations: 18 Pulse Ox (%): 97 - Physical Exam General: Alert, In no apparent distress, Oriented x3 HEENT: Atraumatic, PERRLA, Mucous membr. moist/pink, EOMI, Sclerae nonicteric Neck: Supple, 2+ carotid pulse no bruit, No LAD, Without JVD or thyroid abnormality Respiratory: Clear to auscultation bilaterally, Normal air movement Cardiovascular: Regular rate/rhythm, Normal S1 S2, No murmurs Gastrointestinal: Normal bowel sounds, Soft and benign, Non-distended, No tenderness Musculoskeletal: No clubbing, No swelling, No tenderness Integumentary: No rashes Neurological: Normal gait, Normal speech, Normal strength at 5/5 x4 extr, Normal tone, Sensation intact, Cranial nerves 3-12 intact, Normal affect Lymphatics: No axilla or inguinal lymphadenopathy Assessment & Plan - Problems (Diagnosis) (1) Chest pain, rule out acute myocardial infarction Current Visit: Yes Status: Acute - Plan 1. Serial troponins and EKG 2. Cardiology consultation 3. Echocardiogram and stress test if symptoms are not improving 4. Anti-platelet therapy, anti coagulation, beta-edith, statin, and O2 as needed 5. IV morphine for pain 6. Nitro p.r.n. 7. Lipid profile Discharge Plan: Home Plan to discharge in: 48 Hours - Advance Directives Does patient have a Living Will: No Does patient have a Durable POA for Healthcare: No - Code Status/Comfort Care Code Status Assessed: Yes Code Status: Full Code Critical Care: No Time Spent Managing PTS Care (In Minutes): 40
--- NOTE | 2019-10-01 06:00 | P.PN ---
Date of Service: 09/30/19 Patient chest pain is persistent. It is not improving. Will go ahead and schedule a stress test in the morning. Cardiology has also been consulted.
--- NOTE | 2019-10-01 07:46 | EKG ---
Test Date: 2019-09-30 Test Time: 14:05:09 Property Underwriter: CHAZ MEASUREMENT RESULTS: Intervals: Rate: 51 MA: 186 QRSD: 86 QT: 474 QTc: 436 [place]: P: 61 MA: 186 QRS: 63 T: 69 INTERPRETIVE STATEMENTS: Sinus bradycardia with marked sinus arrhythmia Low voltage QRS Borderline ECG Compared to ECG 09/30/2019 07:35:11 No significant changes Electronically Signed On 10-01-19 07:44:40 CDT by Law Faustin
--- NOTE | 2019-10-01 07:46 | EKG ---
Test Date: 2019-09-30 Test Time: 14:05:35 Captain/Check Airman: CHAZ MEASUREMENT RESULTS: Intervals: Rate: 53 [place]: 184 QRSD: 88 QT: 474 QTc: 444 [place]: P: 59 [place]: 184 QRS: 57 T: 72 INTERPRETIVE STATEMENTS: Sinus bradycardia Low voltage QRS Borderline ECG Compared to ECG 09/30/2019 14:05:09 Sinus arrhythmia no longer present Electronically Signed On 10-01-19 07:44:39 CDT by Law Faustin
--- NOTE | 2019-10-01 07:47 | EKG ---
Test Date: 2019-09-29 Test Time: 22:18:50 Ceramic Tile Installer: RV MEASUREMENT RESULTS: Intervals: Rate: 89 [place]: 168 QRSD: 96 QT: 354 QTc: 430 [place]: P: 63 [place]: 168 QRS: 48 T: 43 INTERPRETIVE STATEMENTS: Normal sinus rhythm Cannot rule out Anterior infarct, age undetermined Abnormal ECG Compared to ECG 11/01/2017 00:44:43 No significant changes Electronically Signed On 10-01-19 07:44:48 CDT by Law Faustin
--- NOTE | 2019-10-01 07:47 | EKG ---
Test Date: 2019-09-30 Test Time: 07:35:11 Mail Carrier And Clerk: CHAZ MEASUREMENT RESULTS: Intervals: Rate: 58 [place]: 194 QRSD: 90 QT: 442 QTc: 433 [place]: P: 56 [place]: 194 QRS: 60 T: 80 INTERPRETIVE STATEMENTS: Sinus bradycardia with sinus arrhythmia Low voltage QRS Borderline ECG Compared to ECG 09/29/2019 22:18:50 Low QRS voltage now present Sinus rhythm no longer present Myocardial infarct finding no longer present Electronically Signed On 10-01-19 07:44:44 CDT by Law Faustin
[2019-10-01] MEDS ORDERED: REGADENOSON 0.4 MG/5 ML SYR IV ONE (08:32)
[2019-10-01] MEDS: METOPROLOL TAR 50 MG TAB PO SCH (09:00)
[2019-10-01] MEDS: ASPIRIN EC 81 MG TAB PO SCH (09:00)
[2019-10-01] MEDS: ENOXAPARIN 40 MG/0.4 ML SQ SCH (10:22)
[2019-10-01 12:10] VITALS: O2SAT 97
--- NOTE | 2019-10-01 13:20 | RAD REPORT ---
EXAM DESCRIPTION: NM - Rest Stress Cardiac Imaging - 10/01/2019 1:11 pm CLINICAL HISTORY: CP Chest pain. COMPARISON: No comparisons TECHNIQUE: The patient was administered approximately 10mCi of Tc 99m Sestamibi prior to resting SPE CT imaging of the heart. The patient was then administered approximately 30 mCi of Tc 99m Sestamibi f ollowing exercise or pharmacologic stress. Multiplanar SPECT images were reviewed. FINDINGS: No stress-induced ischemia defect is seen. Mildly reduced radiopharmaceutical accumulation is seen at the LV apex with rest and stress suggesting mild scar tissue. The end diastolic volume is 83 ml, the end systolic volume is 34 ml, and the ejection fraction is 60 %. IMPRESSION: No stress induced ischemia. Mild diminished radiopharmaceutical accumulation LV apex is probably related to mild scar tissue from prior infarction.
--- NOTE | 2019-10-01 13:36 | CON ---
Date of Consultation: 10/01/2019 Reason For Consultation: Chest pain. History Of Present Illness: This is a 54-year-old female with history of polio, anxiety disorder, an emia, migraines, presented to the emergency room with chest pain that lasted a whole day by the day o f presentation, pressure-like in the retrosternal and right side of the chest. No radiation. Not re lated to activity. The pain comes and goes and then became more intense. She became concerned, so p resented to the emergency room. Patient reported significant cardiac disease history in the family w ith her little brother and father both having heart issues in the age of 40s. She denies having any smoking history. No other complaints. Past Medical History: As outlined above in the HPI. Medications: Refer to reconciliation sheet for detailed list. Allergies: NO KNOWN DRUG ALLERGIES. Social History: She does not smoke or drink, does not use any drugs. Family History: Cardiac disease in the father and brother age of 40s. Diabetes in her si ster. Review of Systems: All systems reviewed were negative except mentioned in HPI. Physical Examination: Vital Signs: Showed temperature 98.4, pulse is 54, breathing at 18, blood pressure is 135/72, satura ting 97% on room air. General: Pleasant, middle-aged female, no apparent distress. HEENT AND Neck: Pupils are reactive to light. Intact eye movements. No JVD. No cervical lymphaden opathy. Neck is supple. Thyroid is not enlarged. Lungs: Clear to auscultation bilaterally. No rhonchi, rales, or crackles. No accessory muscle use. Heart: Regular rate and rhythm. No extra sounds. Abdomen: Soft, nontender. Bowel sounds positive. No organomegaly. No masses or hernia. No rigidi ty or rebound. Extremities: No edema, clubbing, cyanosis. Intact pulses. Skin: No rash. Neurologic: Alert, awake, and oriented x3. No acute focal deficits appreciated. Investigations: Troponin less than 0.02 x2. Creatinine is 1.0 and hemoglobin is 14.8. Assessment And Plan: 1.Chest pain. Risk factors include significant family history and otherwise there are no significan t risk factors. Regular stress test was ordered already, await on the results of that. If negative, patient can be released and if the stress test is abnormal, plan for coronary angiogram later on tod ay or in the morning. 2.Continue aspirin 81 mg daily and statin therapy if no contraindication. 3.Obtain echocardiogram. Appreciate the courtesy of this consultation. /LAURENCE Voice ID: [id number] Report ID: [id number]
--- NOTE | 2019-10-01 14:11 | P.DS ---
Discharge Date: 10/01/19 Disposition: ROUTINE DISCHARGE Discharge Condition: GOOD Reason for Admission: Chest pain rule out acute coronary syndrome - Problems (1) Chest pain, rule out acute myocardial infarction Status: Acute Brief History of Present Illness: Patient is a 54-year-old female came to the hospital with chest discomfort. Pain was mainly in the sternal region enjoy short of breath. She is having persistent chest pain for last 24 hr. Patient denies any history of heart disease. He does have a family history of heart disease with her father dying in his early 40s. Patient chest pain is not being relieved with current medication. She has had stressors but nothing out of the ordinary. Denies any history of hypertension or diabetes. She will be admitted to the hospital for rule out for acute coronary syndrome. Hospital Course: Patient did well during hospital stay. Patient stress test was negative. Patient can discharge home with outpatient follow up. Vital Signs/Physical Exam: Temp Pulse Resp BP Pulse Ox 97 F 65 18 135/65 99 10/01/19 08:00 10/01/19 08:00 10/01/19 08:00 10/01/19 08:00 10/01/19 08:00 General: Alert, In no apparent distress, Oriented x3 Laboratory Data at Discharge: WBC 6.0 K/uL (4.3-10.9) 09/29/19 22:30 Hgb 14.8 g/dL (12.0-15.0) 09/29/19 22:30 Hct 44.5 % (36.0-45.0) 09/29/19 22:30 Plt Count 123 K/uL (152-406) L 09/29/19 22:30 PT 11.5 SECONDS (9.5-12.5) 09/29/19 22:30 INR 0.97 09/29/19 22:30 Sodium 143 mmol/L (136-145) 09/29/19 22:30 Potassium 3.7 mmol/L (3.5-5.1) 09/29/19 22:30 BUN 15 mg/dL (7-18) 09/29/19 22:30 Creatinine 1.05 mg/dL (0.55-1.3) 09/29/19 22:30 Glucose 130 mg/dL (74-106) H 09/29/19 22:30 Magnesium 2.1 mg/dL (1.8-2.4) 09/29/19 22:30 Total Bilirubin 0.6 mg/dL (0.2-1.0) 09/29/19 22:30 AST 46 U/L (15-37) H 09/29/19 22:30 ALT 73 U/L (12-78) 09/29/19 22:30 Alkaline Phosphatase 133 U/L (45-117) H 09/29/19 22:30 Troponin I < 0.02 ng/mL (0.0-0.045) 09/30/19 13:53 Triglycerides 121 mg/dL (<150) 09/30/19 05:57 Cholesterol 175 mg/dL (<200) 09/30/19 05:57 HDL Cholesterol 51 mg/dL (40-60) 09/30/19 05:57 Cholesterol/HDL Ratio 3.43 09/30/19 05:57 Home Medications: ALPRAZolam [Xanax*] 0.25 mg PO TID PRN #30 tab 09/30/19 Metoprolol Tartrate [Lopressor*] 25 mg PO BID #60 tab 09/30/19 Tramadol HCl [Ultram] 1 tab PO Q4H PRN 09/30/19 New Medications: Metoprolol Tartrate [Lopressor*] 25 mg PO BID #60 tab ALPRAZolam [Xanax*] 0.25 mg PO TID PRN #30 tab PRN Reason: Anxiety Patient Discharge Instructions: OK TO DC IV AND DC HOME if stress test is negative and if okay with Cardiology. FOLLOW-UP WITH PRIMARY CARE PROVIDER IN 1-2 WEEKS. FOLLOW-UP WITH CARDIOLOGY IN 1 WEEKS. Please call in Xanax at [facility] pharmacy. RETURN TO THE ER IF symptoms worsen. CALL DR. HARDY AT [phone] IF ANY QUESTIONS REGARDING HOSPITAL STAY. PLEASE CALL THE FLOOR AT [phone] IF ANY MEDICATION OR NURSING QUESTIONS. Diet: AHA Activity: Fall precautions Followup: Law Faustin MD [ACTIVE - CAN ADMIT] - Ronald Walsh MD [ACTIVE - CAN ADMIT] - Time spent managing pt's care (in minutes): 20
--- NOTE | 2019-10-01 14:46 | ECHO ---
HEIGHT: 5 ft 4 in WEIGHT: 210 lb 0 oz DATE OF STUDY: 10/01/[address]: Inga Barrera MD 2-DIMENSIONAL: YES M.MODE: YES DOPPLER: YES COLOR FLOW: YES TDS: NO PORTABLE: NO DEFINITY: NO BUBBLE STUDY: NO DIAGNOSIS: CHEST PAIN CARDIAC HISTORY: CATHERIZATION: NO SURGERY: NO PROSTHETIC VALVE: NO PACEMAKER: NO MEASUREMENTS (cm) DIASTOLIC (NORMALS) SYSTOLIC (NORMALS) IVSd 0.9 (0.6-1.2) LA Diam 3.3 (1.9-4.0) LVEF 72% LVIDd 4.4 (3.5-5.7) LVIDs 2.6 (2.0-3.5) %FS 41% LVPWd 1.0 (0.6-1.2) Ao Diam 3.6 (2.0-3.7) 2 DIMENSIONAL ASSESSMENT: RIGHT ATRIUM: NORMAL LEFT ATRIUM: NORMAL RIGHT VENTRICLE: NORMAL LEFT VENTRICLE: NORMAL TRICUSPID VALVE: NORMAL MITRAL VALVE: MILD MITRAL ANNULAR CALCIFICATION PULMONIC VALVE: NORMAL AORTIC VALVE: MILD AORTIC STENOSIS PERICARDIAL EFFUSION: NONE AORTIC ROOT: BORDERLINE LEFT VENTRICULAR WALL MOTION: NORMAL. DOPPLER/COLOR FLOW: NORMAL. COMMENTS: NORMAL LEFT VENTRICULAR EJECTION FRACTION WITH WALL MOTION. BORDERLINE AORTIC ROOT DIAMETER OF 3.6 CENTIMETERS SQUARED. PERIODIC FOLLOW UP IS RECOMMENDED. TECHNOLOGIST: JAYLEN MCDANIEL
[2019-10-01 14:49] VITALS: BP 129/63; TEMP 97.5
--- NOTE | 2019-10-01 14:50 | TREADPHA ---
DX: CHEST PAIN Date of Study: 10/01/2019 Ht: 5' 4 " Wt: 210 lb 0 oz Consulting Physician: СЕРГЕЙ MEDICATIONS: TYLENOL, XANAX, ASPIRIN, LOVENOX, LOPRESSOR, MORPHINE, ULTRAM HISTORY: 54 YEAR OLD FEMALE WITH HISTORY OF ANEMIA, POLIO AND BACK PAIN. ADMITTED FOR CHEST PRESSURE. PHYSICIAL EXAMINATION: RESTING B.P.: 134/71 RESTING H.R.: 73 RESTING EKG: NORMAL SINUS RHYTHM PROTOCOL: LEXISCAN EXERCISE TIME: 3:30 B.P. AT PEAK STRESS: 128/70 IMPRESSION: LEXISCAN STRESS TEST PERFORMED. CARDIOLITE INJECTED PER PROTOCOL. NO SUPRA VENTRICULAR TACHYCARDIA OR VENTRICULAR TACHYCARDIA, PREMATURE VENTRICULAR COMPLEXES NOTED. PATIENT DENIED CHEST PAIN, TOLERATED WELL. RESPIRATIONS NON LABORED. SEE NUCLEAR MEDICINE FOR REPORT. PREMATURE VENTRICULAR COMPLEXES SEEN AFTER LEXISCAN. NO EKG CHANGES.
== END 2019-10-01 16:31 | disposition home or self-care (01) ==
LOC: ER 22:10 → 2ND 09-30 02:08
PROVIDERS: ADMIT Hospitalist; ATTEND Hospitalist
DX: R07.9 Chest pain, unspecified (principal); R94.31 Abnormal electrocardiogram [ECG] [EKG]; Z82.49 Family history of ischemic heart disease and other diseases of the circulatory system; D64.9 Anemia, unspecified; Z86.12 Personal history of poliomyelitis; F41.9 Anxiety disorder, unspecified; Z79.891 Long term (current) use of opiate analgesic; Z11.59 Encounter for screening for other viral diseases
CPT/HCPCS: 93005 ×4; 93017; 93306; 85025; 80048; 36415; 83735; 85610; 80061; 85379; 80076; 84484 ×3; 83880; 71045; 78452; 96374; 99285; U0002; J1650 ×2; J2270; J2785; A9500; G0378 ×3

== ENCOUNTER → 2021-03-24 | Day surgery (SDC) | payer OTHER ==
[~2021-03-24] MED LIST: CEFAZOLIN/SWI 2gm 0 GM/0 ML SYR ONE; FENTANYL CITR 100 MCG/2 ML ONE; HYDROCODONE/APAP 10/325 TAB PO PRN; HYDROCODONE/APAP 5/325 MG TAB PO PRN; IBUPROFEN 200 MG TAB PO PRN; KETOROLAC 30 MG/ML INJ ONE; LIDOCAINE 1% MPF 5 ML VIAL ONE; LIDOCAINE 1% W/EPI 1:100,000 MDV 20 ML VIAL ONE; MIDAZOLAM HCL 2 MG/2 ML INJ ONE; ONDANSETRON 4 MG/2 ML VIAL ONE; PROMETHAZINE INJ 25 MG/ML AMP IV PRN; Ringers Lactate 1,000 ML IV ONE; SERTRALINE HCL 50 MG TAB PO SCH; dexAMETHasone 10 MG/ML VIAL ONE; propofoL 200 MG/20 ML VIAL IV ONE
--- NOTE | 2021-03-24 13:41 | P.BOP ---
Preoperative diagnosis: pelvic pain, PMB, endometrial polyps Postoperative diagnosis: same Primary procedure: Hysteroscopy d/c and polypectomy x3 Social Media Intern: NONE,NONE Estimated blood loss: min Specimen: polyps x3 and EMC Findings: 2large and 1 small sessile polyp, completely removed Anesthesia: General Complications: None Transferred to: Recovery Room Condition: Good
--- NOTE | 2021-03-24 14:48 | OP ---
Date of Procedure: 03/24/2021 Surgeon: Mercedez Jensen MD Elevator Examiner: No assistants. Preoperative Diagnoses: Pelvic pain, postmenopausal bleeding, endometrial polyps. Postoperative Diagnoses: Pelvic pain, postmenopausal bleeding, endometrial polyps. Procedures Performed: Hysteroscopy, D and C, polypectomy x3 using MyoSure LITE, operative hysterosco py was performed. Complications: No complications. Drains: No drains. Estimated Blood Loss: Minimal. Specimens: Polyps x3 and endometrial curettings. Findings: Two large and one small sessile polyps completely removed and adequately curetted. Do not e that she has a significant distal posterior wall defect (rectocele), perineal body defect and an ap ical defect as well with a slight anterior wall defect. The majority of the defect was posteriorly a nd in the distal perineum. This can be factored into the treatment plan when a surgical treatment is deemed necessary for this p atient. Anesthesia: General with LMA. Condition: Stable. Indications: The patient is a 55-year-old female with last menstrual period in 2016. Recently noted having pelvic pain and cramping. After she was evaluated in the office for this, transvaginal ultra sound showed endometrial thickening. A few days later, she reported having postmenopausal bleeding. Office hysteroscopy was performed for sampling and she was found to have endometrial polyps at the t tuut of hysteroscopy, so she was then consented to be brought over for a polypectomy for sampling as w ell as for purpose of removal for treatment. Procedure In Detail: After informed consent was re-verified, the patient was brought to the OR and p laced in supine fashion on the operating table. General anesthesia was given. She was placed in a d orsal lithotomy position using Pete stirrups. Vulva, vagina, and perineum prepped and draped in a s terile fashion. Speculum placed to expose the cervix. Anterior lip grasped with 2 Allis clamps. A small MyoSure scope was introduced. Normal saline was used for distention medium and 80 mmHg pressur e was used. On visualization of the endometrial cavity, there were 2 large polyps in the posterior w all. MyoSure LITE device was taken after priming the entire connection. Then, polypectomy was perfo rmed with the help of this entire polyp of anteriorly and almost 85% of the polyp posteriorly were al l taken down and then the small polyp was taken down as well. Then, the rest of the base of the poly p was very difficult to be removed and appeared to be very dense. So, the scope was pulled out and R andall forceps was used to get the rest of the polyp by just going in the direction of the polyp. On ce this was removed, the scope was replaced. There was a complete removal. The polyp behind it was sessile and was also taken down. There was small tiny fibroid submucosal near the left cornual end. This was left intact. Endometrial curettings were performed with MyoSure LITE as well. All the spe cimens were handed off for permanent pathology. Instruments were removed. Instrument and sponge cou nts were correct at the end of the case. The patient tolerated the procedure well. BANDAR/LAURENCE Voice ID: [id number] Report ID: [id number]
[2021-03-24 16:16] VITALS: BP 143/73; TEMP 98.3; O2SAT 98
== END ==
LOC: OR 09:48
PROVIDERS: ATTEND Obstetrics & Gynecology
PROC: 0UDB7ZX Extraction of Endometrium, Via Natural or Artificial Opening, Diagnostic (ICD-10-PCS; 2021-03-24)
PROC: 0UJD8ZZ Inspection of Uterus and Cervix, Via Natural or Artificial Opening Endoscopic (ICD-10-PCS; 2021-03-24)
PROC: 0UB97ZX Excision of Uterus, Via Natural or Artificial Opening, Diagnostic (ICD-10-PCS; principal; 2021-03-24 13:15)
DX: R10.2 Pelvic and perineal pain (principal); N84.0 Polyp of corpus uteri; N95.0 Postmenopausal bleeding; Z20.822 Contact with and (suspected) exposure to COVID-19
CPT/HCPCS: 88305; 58558; U0003; J2704; J2250; J3010; J1100; J7120; J2405; J0690

== ENCOUNTER 2021-11-20 16:12 | Emergency (ER) | payer OTHER ==
[2021-11-20] MEDS ORDERED: KETOROLAC 30 MG/ML INJ ONE (18:08)
[2021-11-20] MEDS ORDERED: CYCLOBENZAPRINE 10 MG TAB ONE (18:08)
--- NOTE | 2021-11-20 18:41 | RAD REPORT ---
EXAM DESCRIPTION: RAD - Shoulder Right 2 View - 11/20/2021 5:19 pm CLINICAL HISTORY: PAIN COMPARISON: Scapula Right dated 11/20/2021 FINDINGS: Mild AC joint and glenohumeral joint arthritic changes. No acute fracture or dislocation s een.
--- NOTE | 2021-11-20 18:42 | RAD REPORT ---
EXAM DESCRIPTION: RAD - Scapula Right - 11/20/2021 5:19 pm CLINICAL HISTORY: PAIN COMPARISON: Shoulder Right 2 View dated 11/20/2021 FINDINGS: No fracture or dislocation seen.
[2021-11-20] MEDS ORDERED: NA CHLORIDE 0.9% 1,000 ML ONE (19:00)
[2021-11-20 19:09] LABS: Absolute Lymphocytes (CBC) 0.5 K/uL (0.7-4.9); Hematocrit 30.5 % (36.0-45.0); Lymphocytes % 7.7 % (15.3-44.8); MCV 70.8 fL (80-100); MPV 8.6 fL (7.6-11.3); RBC Red Blood Cell Count 4.31 M/uL (3.86-4.86)
[2021-11-20 19:10] LABS: Blood Morphology Comment NOT SEEN (NOT SEEN); Platelet Estimate DECR; White Blood Cell Scan OK (OK)
[2021-11-20 19:24] LABS: Albumin 3.5 g/dL (3.4-5.0); Bilirubin Total 1.9 mg/dL (0.2-1.0); Potassium 3.8 mmol/L (3.5-5.1); Protein, Total 7.7 g/dL (6.4-8.2)
[2021-11-20 21:49] LABS: Urine Blood Negative (Negative); Urine Glucose Negative (Negative); Urine Protein 1+ (Negative); Urine Specific Gravity >=1.030 (1.005-1.030)
--- NOTE | 2021-11-20 22:27 | ER ---
Nurse's Notes [facility] Name: Katy Randall Age: 56 yrs Sex: Female : 1965 Arrival Date: 11/20/2021 Time: 16:15 Bed 7 Private MD: Rosy Cortes H Diagnosis: Pain in unspecified shoulder;Anemia, unspecified Presentation: 11/20 16:38 Chief complaint: Patient states: the kids were jumping on the bed a couple days ago, iw they flipped and landed on my right shoulder , I took ibuprofen twice yesterday and today and it's not better , hurts really bad to life my arm. Coronavirus screen: At this time, the client does not indicate any symptoms associated with coronavirus-19. Ebola Screen: Patient negative for fever greater than or equal to 101.5 degrees Fahrenheit, and additional compatible Ebola Virus Disease symptoms Patient denies exposure to infectious person. Patient denies travel to an Ebola-affected area in the 21 days before illness onset. No symptoms or risks identified at this time. Initial Sepsis Screen: Does the patient meet any 2 criteria? No. Patient's initial sepsis screen is negative. Does the patient have a suspected source of infection? No. Patient's initial sepsis screen is negative. Risk Assessment: Do you want to hurt yourself or someone else? Patient reports no desire to harm self or others. Onset of symptoms was November 18, 2021. 16:38 Method Of Arrival: Ambulatory iw 16:38 Acuity: ALEXEY 4 iw 18:43 Acuity: ALEXEY 3 iw Historical: - Allergies: 16:39 No Known Allergies; iw - PMHx: 16:39 Anemia; Back pain; Migraines; Polio; iw - Immunization history:: Adult Immunizations up to date. - Social history:: Smoking status: Patient/guardian denies using tobacco products. Screenin:02 Abuse screen: Denies threats or abuse. Nutritional screening: No deficits noted. bm7 Tuberculosis screening: No symptoms or risk factors identified. Fall Risk None identified. Assessment: 19:02 Reassessment: Patient and/or family updated on plan of care and expected duration. Pain bm7 level reassessed. Patient is alert, oriented x 3, equal unlabored respirations, skin warm/dry/pink. 21:06 Reassessment: Patient appears in no apparent distress at this time. No changes from hb previously documented assessment. Patient and/or family updated on plan of care and expected duration. Pain level reassessed. Vital Signs: 16:39 BP 120 / 54; Pulse 81; Resp 16; Temp 97.4; Pulse Ox 98% on R/A; Pain 6/10; iw 19:03 BP 115 / 65; Pulse 80; Resp 15; Pulse Ox 99% on R/A; hb 21:06 BP 118 / 62; Pulse 81; Resp 15; Pulse Ox 99% on R/A; hb 22:00 BP 117 / 57; Pulse 78; Resp 16; Pulse Ox 100% on R/A; kl 22:00 BP 105 / 42; Pulse 84; Resp 18; Pulse Ox 100% on R/A; Pain 3/10; kl ED Course: 16:15 Patient arrived in ED. mr 16:15 Rosy Cortes DO is Private Physician. mr 16:18 [facility] 7 16:18 Dominik Iqbal MD is Attending Physician. jh7 16:39 Triage completed. iw 16:40 Arm band placed on. iw 17:20 XRAY Shoulder RIGHT 2 view In Process Unspecified. EDMS 17:20 XRAY Scapula Right In Process Unspecified. EDMS 18:50 Micaela Lilly, RN is Primary Nurse. hb 19:02 No apparent distress. Resting quietly. Awaiting lab results. bm7 19:02 Patient has correct armband on for positive identification. Bed in low position. Call bm7 light in reach. Side rails up X2. Client placed on continuous cardiac and pulse oximetry monitoring. NIBP monitoring applied. 19:02 Initial lab(s) drawn, by in, sent to lab. Inserted saline lock: 20 gauge in left bm7 antecubital area, using aseptic technique. Blood collected. 19:04 Primary Nurse role handed off by Micaela Lilly, RN eb 20:15 No apparent distress. Resting quietly. kl 21:30 to bathroom. kl 22:00 No apparent distress. Resting quietly. Appears to be sleeping. kl 22:54 No provider procedures requiring assistance completed. IV discontinued, intact, kl bleeding controlled, No redness/swelling at site. Pressure dressing applied. Administered Medications: 18:04 Drug: Ketorolac 60 mg Route: IM; Site: left gluteus; bm7 19:04 Follow up: Response: No adverse reaction bm7 18:04 Drug: Flexeril (cyclobenzaprine) 10 mg Route: PO; bm7 19:03 Follow up: Response: No adverse reaction bm7 19:00 Drug: NS 0.9% 1000 ml Route: IV; Rate: 1 bolus; Site: left antecubital; Medication: 19:02 VIS not applicable for this client. bm7 Outcome: 22:26 Discharge ordered by . kb 22:54 Patient left the ED. kl Signatures: Dispatcher [employer] EDMS Isis Peters, TELMA-C RN ACUTE-Roz López RN JODI Nina Hawkins Irene, RN RN Micaela Lilly RN RN Maggy Leo Brittany, RN RN [facility] Leanne Atkins FNP FNP 7
--- NOTE | 2021-11-20 22:27 | EDPHYS ---
Physician Documentation [facility] Name: Katy Randall Age: 56 yrs Sex: Female : 1965 Arrival Date: 11/20/2021 Time: 16:15 Bed 7 Private MD: Rosy Cortes H ED Physician Dominik Iqbal HPI: 11/20 18:00 This 56 yrs old Female presents to ER via Ambulatory with complaints of jh7 Shoulder Pain and back pain. 18:00 right shoulder and right trapezius. Onset: The symptoms/episode began/occurred 2 day(s) jh7 ago. Associated signs and symptoms: Pertinent negatives: abdominal pain, chest pain, diaphoresis, shortness of breath, tingling. Patient presents with right posterior shoulder pain after her grandkids jumped on her back 2 days ago. States that she was initially using ibuprofen for the pain, but the pain has increased since then. Reports pain with abduction of her right shoulder.. Historical: - Allergies: 16:39 No Known Allergies; iw - PMHx: 16:39 Anemia; Back pain; Migraines; Polio; iw - Immunization history:: Adult Immunizations up to date. - Social history:: Smoking status: Patient/guardian denies using tobacco products. ROS: 18:00 Constitutional: Negative for fever, chills, and weight loss, Neck: Negative for injury, jh7 pain, and swelling, Cardiovascular: Negative for chest pain, palpitations, and edema, Respiratory: Negative for shortness of breath, cough, wheezing, and pleuritic chest pain, Abdomen/GI: Negative for abdominal pain, nausea, vomiting, diarrhea, and constipation, Skin: Negative for injury, rash, and discoloration, Neuro: Negative for headache, weakness, numbness, tingling, and seizure. 18:00 MS/extremity: Positive for injury or acute deformity, decreased range of motion, pain, tenderness. 18:00 All other systems are negative. Exam: 18:00 Constitutional: This is a well developed, well nourished patient who is awake, alert, jh7 and in no acute distress. Cardiovascular: Regular rate and rhythm with a normal S1 and S2. No gallops, murmurs, or rubs. Normal PMI, no JVD. No pulse deficits. Respiratory: Lungs have equal breath sounds bilaterally, clear to auscultation and percussion. No rales, rhonchi or wheezes noted. No increased work of breathing, no retractions or nasal flaring. Abdomen/GI: Soft, non-tender, with normal bowel sounds. No distension or tympany. No guarding or rebound. No evidence of tenderness throughout. Back: No spinal tenderness. No costovertebral tenderness. Full range of motion. Skin: Warm, dry with normal turgor. Normal color with no rashes, no lesions, and no evidence of cellulitis. Neuro: Awake and alert, GCS 15, oriented to person, place, time, and situation. Sensory grossly intact. Normal gait. 18:00 Musculoskeletal/extremity: Circulation is intact in all extremities. Sensation intact. pain elicited over the right posterior shoulder and scapula with palpation and abduction of the shoulder. No bruising or swelling noted. NVI. Vital Signs: 16:39 BP 120 / 54; Pulse 81; Resp 16; Temp 97.4; Pulse Ox 98% on R/A; Pain 6/10; iw 19:03 BP 115 / 65; Pulse 80; Resp 15; Pulse Ox 99% on R/A; hb 21:06 BP 118 / 62; Pulse 81; Resp 15; Pulse Ox 99% on R/A; hb 22:00 BP 117 / 57; Pulse 78; Resp 16; Pulse Ox 100% on R/A; kl 22:00 BP 105 / 42; Pulse 84; Resp 18; Pulse Ox 100% on R/A; Pain 3/10; kl MDM: 17:06 Patient medically screened. venancio 19:10 ED course: When discussing the patient's negative shoulder and scapula x-rays, the [facility] patient mentioned that she felt very dehydrated. She said that she has noticed that she has had some aching over where her right kidney is located and that she has not urinated in 2 days, despite drinking fluids. Agreed to give her IV fluids and order lab work, bladder scan, and a UA.. 19:51 Transition of care: After a detail discussion of the patient's case, care is [facility] transferred to Isis Peters [employer]. 22:25 Data reviewed: vital signs, nurses notes. Data interpreted: Pulse oximetry: on room air kb is 99 %. Interpretation: normal. Counseling: I had a detailed discussion with the patient and/or guardian regarding: the historical points, exam findings, and any diagnostic results supporting the discharge/admit diagnosis, lab results, radiology results, the need for outpatient follow up, a family practitioner, to return to the emergency department if symptoms worsen or persist or if there are any questions or concerns that arise at home. 11/20 18:35 Order name: CBC with Diff; Complete Time: 19:15 [facility] 11/20 18:35 Order name: CMP; Complete Time: 19:26 [facility] 11/20 16:48 Order name: XRAY Shoulder RIGHT 2 view; Complete Time: 18:59 [facility] 11/20 19:11 Order name: CBC Smear Scan; Complete Time: 19:15 [facility] 11/20 21:49 Order name: Urine Dipstick-Ancillary; Complete Time: 22:25 [facility] 11/20 16:48 Order name: XRAY Scapula Right; Complete Time: 18:59 [facility] 11/20 18:35 Order name: IV Saline Lock; Complete Time: 19:00 [facility] 11/20 18:35 Order name: Labs collected and sent; Complete Time: 19:00 [facility] 11/20 19:10 Order name: Bladder Scanner; Complete Time: 21:51 [facility] Administered Medications: 18:04 Drug: Ketorolac 60 mg Route: IM; Site: left gluteus; bm7 19:04 Follow up: Response: No adverse reaction bm7 18:04 Drug: Flexeril (cyclobenzaprine) 10 mg Route: PO; bm7 19:03 Follow up: Response: No adverse reaction 7 19:00 Drug: NS 0.9% 1000 ml Route: IV; Rate: 1 bolus; Site: left antecubital; hb Disposition Summary: 11/20/21 22:26 Discharge Ordered Location: Home kb Condition: Stable kb Diagnosis - Pain in unspecified shoulder kb - Anemia, unspecified kb Followup: kb - With: Emergency Department - When: As needed - Reason: Worsening of condition Followup: kb - With: Private Physician - When: 2 - 3 days - Reason: Recheck today's complaints, Continuance of care, Re-evaluation by your physician Discharge Instructions: - Discharge Summary Sheet kb - Anemia kb - Musculoskeletal Pain kb Forms: - Medication Reconciliation Form kb - Thank You Letter kb - Antibiotic Education kb - Prescription Opioid Use kb Prescriptions: - Voltaren Arthritis Pain 1 % Topical gel - apply 2 gram by TOPICAL route 4 times per day As needed; 1 tube; Refills: 0, kb Product Selection Permitted Signatures: Dispatcher [employer] Isis Cohen, TELMA-C [employer]-Dominik Goldberg MD MD cha Williams, Irene, RN RN iw Micaela Lilly RN RN hb McCarthy, Brittany, RN RN 7 Leanne Atkins FNP FNP 7
[2021-11-21 01:19] VITALS: BP 105/42
[2021-11-21 01:28] VITALS: TEMP 98.3; O2SAT 98
== END 2021-11-20 22:54 | disposition home or self-care (01) ==
LOC: ER 16:12
DX: M25.511 Pain in right shoulder (principal); D64.9 Anemia, unspecified
CPT/HCPCS: 85025; 36415; 81003; 80053; 73030; 73010; J7030; 96372; 99284

== ENCOUNTER 2021-12-23 18:01 | Inpatient (IN) | payer OTHER ==
[2021-12-23 19:59] LABS: Absolute Lymphocytes (CBC) 1.3 K/uL (0.7-4.9); Hematocrit 29.5 % (36.0-45.0); Lymphocytes % 16.6 % (15.3-44.8); MCV 76.4 fL (80-100); RBC Red Blood Cell Count 3.86 M/uL (3.86-4.86)
[2021-12-23 20:06] LABS: Protime INR 1.33
--- NOTE | 2021-12-23 20:11 | RAD REPORT ---
EXAM DESCRIPTION: Silvano Single View12/23/2021 7:29 pm CLINICAL HISTORY: Shortness of breath COMPARISON: 2019 FINDINGS: Marked bilateral pulmonary opacities The heart is upper limits normal size IMPRESSION: Marked bilateral pulmonary opacities may represent pulmonary edema or pneumonia
[2021-12-23 20:25] LABS: Potassium 3.5 mmol/L (3.5-5.1)
[2021-12-23 20:41] LABS: Urine Bacteria <20 /HPF (<20); Urine Crystals Unidentified Few /HPF (None Seen); Urine Granular Casts >20 /LPF (None Seen); Urine Mucus 2+ /HPF (None Seen); Urine RBC >50 /HPF (None Seen)
[2021-12-23] MEDS ORDERED: METHYLPREDNISOLONE 125 MG INJ ONE (21:23)
[2021-12-23] MEDS ORDERED: LEVALBUTEROL 1.25 MG/3 ML NEB ONE (21:24)
--- NOTE | 2021-12-23 22:27 | RAD REPORT ---
EXAM DESCRIPTION: CT - Chest For Pe Angio - 12/23/2021 10:09 pm CLINICAL HISTORY: Chest pain COMPARISON: Chest x-ray December 23, 2021 TECHNIQUE: Dynamically enhanced axial 3 mm thick images of the chest were obtained during administra tion of <100> mL Isovue 370 IV contrast. Coronal and oblique reconstruction images were generated and reviewed. Exam utilizes a protocol for optimal evaluation of pulmonary arterial tree. Maximum intensity projections 3D imaging was utilized All CT scans are performed using dose optimization technique as appropriate and may include automated exposure control or mA/KV adjustment according to patient size. FINDINGS: A pulmonary embolus is not seen. A thoracic aortic aneurysm is not noted. Small pleural effusions. A pericardial effusion is not seen. Moderate to marked central bilateral alveolar opacities within the lungs. Left lobe of the liver is enlarged. Small amount of ascites within the upper abdomen IMPRESSION: Negative for a pulmonary embolism. [id number] bilateral alveolar opacities within the lungs may represent pulmonary edema or pne umonia
--- NOTE | 2021-12-23 23:37 | EDPHYS ---
Physician Documentation [facility] Name: Katy Randall Age: 56 yrs Sex: Female : 1965 Arrival Date: 12/23/2021 Time: 18:02 Bed 24 Private MD: ED Physician Logan Sorensen HPI: 12/23 18:55 This 56 yrs old Female presents to ER via Wheelchair with complaints of cp Nausea, Chest Pain, Breathing Difficulty. 18:55 The patient has shortness of breath at rest. Onset: The symptoms/episode began/occurred cp yesterday. Duration: The symptoms are continuous, and are steadily getting worse. Associated signs and symptoms: Pertinent positives: chest pain, Pertinent negatives: productive cough, diaphoresis, fever, vomiting. 18:55 Severity of symptoms: in the emergency department the symptoms are unchanged despite cp home interventions. Historical: - Allergies: 19:04 No Known Allergies; vg1 - Home Meds: 19:04 Hydrocodone-Acetaminophen Oral [Active]; vg1 19:05 Zoloft Oral [Active]; vg1 - PMHx: 19:04 Anemia; Back pain; Migraines; Post Polio Syndrome; vg1 19:05 Anxiety; Depressive disorder; vg1 - Immunization history:: Client reports receiving the 2nd dose of the Covid vaccine. - Social history:: Smoking status: Patient denies any tobacco usage or history of. ROS: 19:00 Eyes: Negative for injury, pain, redness, and discharge. cp 19:00 Constitutional: Negative for body aches, chills, fever, poor PO intake. 19:00 Neck: Negative for pain with movement, pain at rest, stiffness. 19:00 Cardiovascular: Positive for chest pain, of the right side of chest, Negative for edema, palpitations. 19:00 Respiratory: Positive for cough, with no reported sputum, shortness of breath, at rest. wheezing. 19:00 Abdomen/GI: Negative for abdominal pain, vomiting, diarrhea, constipation. 19:00 Back: Positive for pain at rest, pain with movement, of the mid back area. 19:00 Skin: Negative for rash. 19:00 Neuro: Negative for altered mental status, dizziness, syncope, weakness. 19:00 All other systems are negative. Exam: 19:10 Head/Face: Normocephalic, atraumatic. cp 19:10 Constitutional: The patient appears in no acute distress, alert, awake, non-diaphoretic, non-toxic, well developed, well nourished, uncomfortable. 19:10 Eyes: Periorbital structures: appear normal, Conjunctiva: normal, no exudate, no injection, Sclera: no appreciated abnormality, Lids and lashes: appear normal, bilaterally. 19:10 ENT: External ear(s): are unremarkable, Nose: is normal, Mouth: Lips: moist, Oral mucosa: moist, Posterior pharynx: Airway: no evidence of obstruction, patent. 19:10 Chest/axilla: Inspection: normal. 19:10 Cardiovascular: Rate: normal, Rhythm: regular, Edema: is not appreciated, JVD: is not appreciated. 19:10 Respiratory: the patient does not display signs of respiratory distress, Respirations: normal, no use of accessory muscles, no retractions, labored breathing, is not present, Breath sounds: bronchial sounds, that are mild, are heard diffusely. 19:10 Abdomen/GI: Inspection: abdomen appears normal, Palpation: abdomen is soft and non-tender, in all quadrants. 19:10 Neuro: Orientation: to person, place \\T\\ time. Mentation: is normal. 20:04 ECG was reviewed by the Attending Physician. cp Vital Signs: 19:00 BP 146 / 74; Pulse 90; Resp 22; Temp 98.8(O); Pulse Ox 95% on R/A; Weight 90.72 kg; vg1 Height 5 ft. 4 in. (162.56 cm); Pain 8/10; 12/24 01:23 BP 133 / 65; Pulse 100; Resp 17; Temp 98.8(A); Pulse Ox 92% ; Pain 0/10; ke1 12/23 19:00 Body Mass Index 34.33 (90.72 kg, 162.56 cm) vg1 MDM: 12/23 19:00 Differential diagnosis: Anemia asthma, Bronchitis CHF exacerbation, pneumonia, cp Pneumothorax pulmonary edema, Pulmonary Embolism Sepsis Unstable Angina. 20:03 Patient medically screened. kb 23:34 Data reviewed: vital signs, nurses notes. Data interpreted: Pulse oximetry: on room air kb is 95 %. Interpretation: normal. Counseling: I had a detailed discussion with the patient and/or guardian regarding: the historical points, exam findings, and any diagnostic results supporting the discharge/admit diagnosis, lab results, radiology results, the need for further work-up and treatment in the hospital. Physician consultation: Marty IBRAHIM was contacted at 23:34, regarding admission, to the telemetry unit. patient's condition, and will see patient in ED. 12/24 02:36 ED course: Pt now meets severe sepsis criteria. Source (A) pneumonia, SIRS (B) rn tachycardia and tachypnea, Organ Dysfunction (C) is elevated lactate. No sign of shock. . 12/23 18:52 Order name: Basic Metabolic Panel; Complete Time: 20:26 cp 12/23 18:52 Order name: CBC with Diff; Complete Time: 20:13 cp 12/23 18:52 Order name: Magnesium; Complete Time: 20:26 cp 12/23 18:52 Order name: NT PRO-BNP; Complete Time: 20:26 cp 12/23 18:52 Order name: PT-INR; Complete Time: 21:37 cp 12/23 18:52 Order name: Troponin HS; Complete Time: 20:26 cp 12/23 18:52 Order name: Influenza Screen (a \\T\\ B); Complete Time: 21:22 cp 12/23 18:52 Order name: COVID-19 SARS RT PCR (Document "Date of Onset" if Symptomatic); Complete cp Time: 21:22 12/23 18:52 Order name: Urine Microscopic Only; Complete Time: 21:22 cp 12/23 20:45 Order name: Urine Culture [facility] 12/23 21:28 Order name: D-Dimer; Complete Time: 21:37 [facility] 12/24 01:21 Order name: Blood Culture Adult (2) la1 12/24 01:21 Order name: Lactate la1 12/23 18:52 Order name: XRAY Chest (1 view); Complete Time: 20:13 cp 12/23 21:36 Order name: CT Chest For PE Angio; Complete Time: 22:31 kb 12/24 04:59 Order name: CBC with Automated Diff [facility] 12/24 05:17 Order name: Lactate Sepsis 2 HR Follow-up [facility] 12/24 05:20 Order name: Comprehensive Metabolic Panel [facility] 12/24 05:20 Order name: Troponin High Sensitivity [facility] 12/24 05:20 Order name: Lipid Profile [facility] 12/24 05:38 Order name: CBC Smear Scan [facility] 12/24 08:42 Order name: [facility] 12/24 14:32 Order name: Urinalysis [facility] 12/24 14:36 Order name: [facility] 12/23 18:52 Order name: EKG; Complete Time: 18:53 cp 12/23 18:52 Order name: Cardiac monitoring; Complete Time: 23:28 cp 12/23 18:52 Order name: EKG - Nurse/Tech; Complete Time: 21:27 cp 12/23 18:52 Order name: IV Saline Lock; Complete Time: 19:55 cp 12/23 18:52 Order name: Labs collected and sent; Complete Time: 19:55 cp 12/23 18:52 Order name: O2 Per Protocol; Complete Time: 21:23 cp 12/23 18:52 Order name: O2 Sat Monitoring; Complete Time: 21:23 cp EC/31 20:04 Rate is 91 beats/min. Rhythm is regular. [place] interval is normal. QRS interval is normal. cp QT interval is normal. T waves are Inverted in leads III, aVR. Interpreted by me. Reviewed by me. Administered Medications: 21:23 Drug: SOLU-Medrol (methylPrednisoLONE) 125 mg Route: IVP; Site: left antecubital; ke1 22:00 Follow up: Response: Marked relief of symptoms ke1 21:23 Drug: Xopenex (levalbuterol) (3) 1.25 mg Route: Inhalation; ke1 12/24 01:23 CANCELLED (Other Intervention Used): Rocephin (cefTRIAXone) 1 grams IV at calculated la1 rate once; Given slow IV push per pharmacy instructions 01:30 Drug: Lasix (furosemide) 40 mg Route: IVP; Site: left antecubital; ke1 02:41 Follow up: Response: No adverse reaction ke1 02:24 Drug: Rocephin - (cefTRIAXone) 1 grams Route: IVPB; Infused Over: 30 mins; Site: right ke1 hand; 02:24 Drug: Doxycycline 100 mg Route: PO; ke1 Disposition: 12/25 06:59 Co-signature as Attending Physician, Logan Sorensen MD. rn Disposition Summary: 12/23/21 23:36 Hospitalization Ordered Provider: To Sorensen Condition: Stable kb Problem: new kb Symptoms: are unchanged kb Bed/Room Type: Standard kb Hospitalization Status: Inpatient Admission(12/24/21 01:30) la1 Location: Telemetry/MedSurg (Inpatient)(12/24/21 13:26) ja1 Room Assignment: 412(12/24/21 13:26) ja1 Diagnosis - Acute pulmonary edema kb - Sepsis, unspecified organism la1 - Pneumonia, unspecified organism la1 Forms: - Medication Reconciliation Form kb - SBAR form kb Signatures: Dispatcher [employer] EDMS Isis Peters, DOSIMETRIST-C DOSIMETRIST-Ckb Logan Sorensen MD MD rn Attema, Lee DOSIMETRIST-C DOSIMETRIST-Jameel1 Dominik Davis PA PA cp Garcia, Cindy, RN RN Niall Summers RN RN kevin1 Disha Huff RN JODI bhatt1 Sarahi Alfredo, RN RN ll3 Vick Mireles, RN RN ke1 Corrections: (The following items were deleted from the chart) 12/23 19:06 19:04 Home Meds: Tramadol Oral; vg1 vg1 19:06 19:04 PMHx: Polio; vg1 vg1 20:12/22 19:00 Constitutional: Negative for body aches, chills, fever, poor PO intake, cp cp 12/24 19:12/22 19:00 Cardiovascular: Positive for chest pain, of the right side of chest, cp Negative for edema, palpitations, cp 12/24 19:12/22 19:00 Respiratory: Positive for cough, with no reported sputum, shortness of cp breath, at rest. wheezing, cp 12/24 19:12/22 19:00 Abdomen/GI: Negative for abdominal pain, vomiting, diarrhea, constipation, cp cp 12/24 19:12/22 19:00 Eyes: Negative for injury, pain, redness, and discharge, cp cp 12/24 19:12/22 19:00 Neck: Negative for pain with movement, pain at rest, stiffness, cp cp 12/24 19:12/22 19:00 Back: Positive for pain at rest, pain with movement, of the mid back area, cp cp 12/24 19:12/22 19:00 Neuro: Negative for altered mental status, dizziness, syncope, weakness, cp cp 12/23 20:19 12/22 19:00 Skin: Negative for rash, cp cp 12/23 20:19 12/22 19:00 All other systems are negative, cp cp 12/23 21:27 20:04 D-DIMER+COAG.LAB.BRZ ordered. 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 la1 12/23 23:36 Observation [facility] 12/24 02:21 12/23 23:36 Telemetry/MedSurg (observation) [facility] 12/24 02:21 12/23 23:36 [facility] 12/24 13:26 02:21 [facility] ER HOLD [facility] 13: 02:21 ERHOLD- ja1
--- NOTE | 2021-12-23 23:37 | ER ---
Nurse's Notes [facility] Name: Katy Randall Age: 56 yrs Sex: Female : 1965 Arrival Date: 12/23/2021 Time: 18:02 Bed 24 Private MD: Diagnosis: Acute pulmonary edema;Sepsis, unspecified organism;Pneumonia, unspecified organism Presentation: 12/23 19:00 Chief complaint: Patient states: difficulty breathing, chest pain began yesterday, vg1 states N/V; denies coughing or congestion. Also states mid to lower back pain. Stated dizziness and light sensitivity. Coronavirus screen: Vaccine status: Patient reports receiving the 2nd dose of the covid vaccine. Client denies travel out of the [place] in the last 14 days. Ebola Screen: Patient denies exposure to infectious person. Patient denies travel to an Ebola-affected area in the 21 days before illness onset. Initial Sepsis Screen: Does the patient meet any 2 criteria? RR > 20 per min. Does the patient have a suspected source of infection? No. Patient's initial sepsis screen is negative. Risk Assessment: Do you want to hurt yourself or someone else? Patient reports no desire to harm self or others. Onset of symptoms was December 22, 2021. 19:00 Method Of Arrival: Wheelchair vg1 19:00 Acuity: ALEXEY 2 vg1 Triage Assessment: 19:05 General: Appears uncomfortable, Behavior is cooperative. Pain: Complains of pain in vg1 back and chest Pain does not radiate. Pain currently is 8 out of 10 on a pain scale. Pain began 1 day ago. Neuro: Level of Consciousness is awake, alert, obeys commands, Oriented to person, place, time, situation, Reports dizziness, photophobia. GI: Reports nausea, vomiting. 19:05 Respiratory: Airway is patent Respiratory effort is even, unlabored. vg1 Historical: - Allergies: 19:04 No Known Allergies; vg1 - Home Meds: 19:04 Hydrocodone-Acetaminophen Oral [Active]; vg1 19:05 Zoloft Oral [Active]; vg1 - PMHx: 19:04 Anemia; Back pain; Migraines; Post Polio Syndrome; vg1 19:05 Anxiety; Depressive disorder; vg1 - Immunization history:: Client reports receiving the 2nd dose of the Covid vaccine. - Social history:: Smoking status: Patient denies any tobacco usage or history of. Screenin:27 Abuse screen: Denies threats or abuse. Nutritional screening: No deficits noted. ke1 Tuberculosis screening: No symptoms or risk factors identified. Fall Risk None identified. Vital Signs: 19:00 BP 146 / 74; Pulse 90; Resp 22; Temp 98.8(O); Pulse Ox 95% on R/A; Weight 90.72 kg; vg1 Height 5 ft. 4 in. (162.56 cm); Pain 8/10; 12/24 01:23 BP 133 / 65; Pulse 100; Resp 17; Temp 98.8(A); Pulse Ox 92% ; Pain 0/10; ke1 12/23 19:00 Body Mass Index 34.33 (90.72 kg, 162.56 cm) vg1 ED Course: 12/23 18:02 Patient arrived in ED. rg4 18:04 Sebastian Novoa DO is Attending Physician. ms3 18:18 Dominik Davis PA is PHCP. cp 18:58 Logan Sorensen MD is Attending Physician. cp 19:04 Triage completed. vg1 19:05 Arm band placed on. vg1 19:31 XRAY Chest (1 view) In Process Unspecified. EDMS 19:46 Vick Mireles, JODI is Primary Nurse. ke1 19:50 Initial lab(s) drawn, by ne, sent to lab. COVID swab sent to lab. Flu and/or RSV swab wm sent to lab. Inserted saline lock: 20 gauge in left antecubital area, using aseptic technique. Blood collected. 19:55 COVID-19 SARS RT PCR (Document "Date of Onset" if Symptomatic) Sent. wm 19:55 Influenza Screen (a \\T\\ B) Sent. wm 19:55 Basic Metabolic Panel Sent. wm 19:56 CBC with Diff Sent. wm 19:56 Magnesium Sent. wm 19:56 NT PRO-BNP Sent. wm 19:56 PT-INR Sent. wm 19:56 Troponin HS Sent. wm 20:03 PHCP role handed off by Dominik Davis PA kb 20:03 Isis Peters FNP-C is PHCP. kb 20:16 Urine collected: clean catch specimen, blood tinged. wm 22:11 CT Chest For PE Angio In Process Unspecified. EDMS 23:35 To Sorensen MD is Hospitalizing Provider. kb 12/24 02:24 Inserted saline lock: 22 gauge in right hand, using aseptic technique. ke1 02:25 Lactate Sent. ke1 02:25 Blood Culture Adult (2) Sent. ke1 Administered Medications: 12/23 21:23 Drug: SOLU-Medrol (methylPrednisoLONE) 125 mg Route: IVP; Site: left antecubital; ke1 22:00 Follow up: Response: Marked relief of symptoms ke1 21:23 Drug: Xopenex (levalbuterol) (3) 1.25 mg Route: Inhalation; ke1 12/24 01:23 CANCELLED (Other Intervention Used): Rocephin (cefTRIAXone) 1 grams IV at calculated la1 rate once; Given slow IV push per pharmacy instructions 01:30 Drug: Lasix (furosemide) 40 mg Route: IVP; Site: left antecubital; ke1 02:41 Follow up: Response: No adverse reaction ke1 02:24 Drug: Rocephin - (cefTRIAXone) 1 grams Route: IVPB; Infused Over: 30 mins; Site: right ke1 hand; 02:24 Drug: Doxycycline 100 mg Route: PO; ke1 Outcome: 12/23 23:36 Decision to Hospitalize by Provider. kb 12/24 15:01 Patient left the ED. [facility] Signatures: Dispatcher [employer] EDMS Isis Peters, [place] CREDIT NEGOTIATOR-CkDominik Ellsworth PA PA cp Garcia, Rubi 4 Margaux Thornton [facility] Disha Huff RN RN 1 Sebastian Novoa DO DO ms3 Michelle Choe Kouassi, RN RN jo1 Marty WhartonP[facility] Corrections: (The following items were deleted from the chart) 12/23 19:06 19:04 Home Meds: Tramadol Oral; vg1 vg1 19:06 19:04 PMHx: Polio; vg1 vg1 19:08 19:00 Acuity: ALEXEY 3 vg1 vg1 19:09 19:00 Chief complaint: Patient states: difficulty breathing, chest pain began vg1 yesterday, states N/V; denies coughing or congestion. Also states mid to lower back pain. vg1
[2021-12-24] MEDS ORDERED: FUROSEMIDE 40 MG/4 ML VIAL ONE (01:27)
--- NOTE | 2021-12-24 01:52 | P.HP ---
Certification for Inpatient Patient admitted to: Inpatient With expected LOS: >2 Midnights Patient will require the following post-hospital care: None Practitioner: I am a practitioner with admitting privileges, knowledge of patient current condition, hospital course, and medical plan of care. Services: Services provided to patient in accordance with Admission requirements found in Title 42 Section 412.3 of the Code of Federal Regulations <Marty Wharton - Last Filed: 12/24/21 01:40> Patient History Date of Service: 12/24/21 Primary Care Provider: Dr. Cortes Reason for admission: CHF, pneumonia, sepsis History of Present Illness: 56-year-old female with history of anemia, polio presents emergency department for dyspnea, chest pain, chills. Patient reports that she had upper respiratory symptoms about 2 weeks ago and was placed on cefdinir on 12/10/2019 by her primary care doctor, she has been taking this as prescribed but over the course of the last 2 days has had increasing shortness of breath as well as fever, chills. She reports her last measured fever was yesterday. She was evaluated here in the emergency department labs were significant for white blood cell count of 7.9 D-dimer 2316 BNP 3087 creatinine 1.36 GFR 46 urine ectopic with less than 20 bacteria chest x-ray showed marked bilateral pulmonary Pastis meropenem pulmonary edema or pneumonia, CTA of the chest shows no PE, moderate to marked bilateral alveolar opacities within the lungs there is a pulmonary edema or pneumonia. Patient met SIRS criteria with only tachypnea initially, newly documented vital signs in ED with additional SIRS criteria of tachycardia and now meets criteria for sepsis without severe sepsis. Blood cultures and lactate ordered now, antibiotics be given after blood cultures drawn. Will admit patient for suspected new onset CHF/sepsis related to suspected pneumonia. - Past Medical/Surgical History Diabetic: No -: anemia -: polio-right leg -: migraines -: night cramps -: anxiety -: back pain -: left leg knee surgery -: -: Cholecystectomy Psychosocial/ Personal History: Patient lives at home with her family - Family History Mother -: Hypertension Notes: polio Father -: Heart disease Sister -: Cancer, Other (see notes) Notes: lupus, fibromyalgia, parkinsons; brain cancer - Social History Smoking Status: Never smoker Alcohol use: No CD- Drugs: No Caffeine use: Yes Place of Residence: Home <Marty Wharton - Last Filed: 12/24/21 01:40> Date of Service: 12/24/21 <To Sorensen - Last Filed: 12/24/21 18:14> Allergies No Known Allergies Allergy (Verified 03/24/21 10:55) Home Medications: Hydrocodone Bit/Acetaminophen [Hydrocodon-Acetaminophn 10-325] 1 each PO Q6HP PRN 03/23/21 Sertraline [Zoloft] 50 mg PO DAILY 03/23/21 Cefdinir [Omnicef] 300 mg PO BID 12/24/21 Diclofenac Sodium 1 appl PRN 12/24/21 Doxylamine/Phenylephrine HCl [Poly Hist Forte 10.5-10 mg Tab] 10 - 10.5 mg PO BID 12/24/21 Meloxicam 1 tab PO DAILY 12/24/21 Review of Systems 10-point ROS is otherwise unremarkable General: Chills Respiratory: Cough, Shortness of Breath, SOB with Excertion Cardiovascular: Chest Pain, Orthopnea, Edema, As per HPI <Marty Wharton Eric - Last Filed: 12/24/21 01:40> Physical Examination - Physical Exam General: Alert, In no apparent distress, Oriented x3 HEENT: Atraumatic, PERRLA, Mucous membr. moist/pink, EOMI, Sclerae nonicteric Neck: Supple, 2+ carotid pulse no bruit, No LAD, Without JVD or thyroid abnormality Respiratory: Diminished, Crackles/rales Cardiovascular: Regular rate/rhythm, Normal S1 S2, Edema (1+ pitting edema left lower extremity, right lower extremity smaller in diameter chronicallyhistory of polio) Capillary refill: <2 Seconds Gastrointestinal: Normal bowel sounds, No tenderness Musculoskeletal: No tenderness Integumentary: No rashes Neurological: Normal speech, Normal strength at 5/5 x4 extr, Normal tone, Normal affect - Studies Laboratory Data (last 24 hrs) 12/23/21 19:35: PT 14.7 H, INR 1.33 12/23/21 19:35: WBC 7.90, Hgb 9.5 L, Hct 29.5 L, Plt Count 134 L 12/23/21 19:35: Sodium 138, Potassium 3.5, BUN 17, Creatinine 1.36 H, Glucose 118 H, Magnesium 2.0 Microbiology Data (last 24 hrs): 12/23/21 19:40 Nasopharnyx Influenza Type A Antigen Screen - Final 12/23/21 19:40 Nasopharnyx Influenza Type B Antigen Screen - Final <Marty Wharton - Last Filed: 12/24/21 01:40> - Studies Laboratory Data (last 24 hrs) 12/23/21 19:35: PT 14.7 H, INR 1.33 12/23/21 19:35: WBC 7.90, Hgb 9.5 L, Hct 29.5 L, Plt Count 134 L 12/23/21 19:35: Sodium 138, Potassium 3.5, BUN 17, Creatinine 1.36 H, Glucose 118 H, Magnesium 2.0 Microbiology Data (last 24 hrs): 12/23/21 19:40 Nasopharnyx Influenza Type A Antigen Screen - Final 12/23/21 19:40 Nasopharnyx Influenza Type B Antigen Screen - Final <To Sorensen - Last Filed: 12/24/21 18:14> Assessment and Plan - Plan Assessment: Sepsis secondary to bilateral pneumoniafailed outpatient management Dyspnea, pulmonary edema, elevated BNP suspect new onset CHFunknown EF Microcytic anemia/ ADRIANNA Plan: Sepsis secondary to bilateral pneumoniafailed outpatient management: Met criteria for sepsis with repeat vital signs showing heart rate greater than 90 in ED, blood cultures and lactate ordered at that time as well as antibiotics Rocephin/doxycycline given prolonged QT on EKG. Patient has been on cefdinir at home still reporting chills/fevers the last few days. No criteria for severe sepsis/septic shock at this time. Will monitor lactate level repeat as necessary. Dyspnea, pulmonary edema, elevated BNP suspect new onset CHFunknown EF: No previous echocardiogram available reports family history of cardiomyopathy and CHF. Cardiology consulted continue gentle diuresis with Lasix, echocardiogram ordered. Difficult to interpret CT/chest x-ray with volume overload versus pneumonia. Microcytic anemia/ADRIANNA : Patient reports history of anemia, takes iron daily. Reports an episode of bright red blood in toilet about two weeks ago x1, has had intermittent dark stools since then which she states are normal for her with her iron supplementation at home. Will monitor CBC, give IV PPI BID. Consult GI for worsening/signs of active bleeding, pt instructed by PCP and again now to FU with GI for further evaluation if H/H remain stable. DVT PPX: Lovenox Code status: Full Discharge Plan: Home Plan to discharge in: 48 Hours - Advance Directives Does patient have a Living Will: No Does patient have a Durable POA for Healthcare: No - Code Status/Comfort Care Code Status Assessed: Yes (Full code) Critical Care: No Time Spent Managing Pts Care (In Minutes): 70 <Marty Wharton - Last Filed: 12/24/21 01:40> - Plan Patient seen and examined on rounds this morning. Plan of care reviewed as noted above and agree with the following exceptions CT chest somewhat atypical appearance of infection, having renal insufficiency, hematuria, pulmonary findings. Pulmonology and nephrology consulted Will further evaluate with autoimmune studies, renal ultrasound, further urine studies Anemia work-up <To Sorensen - Last Filed: 12/24/21 18:14>
[2021-12-24] MEDS ORDERED: CEFTRIAXONE 1000 MG/VIAL ONE (02:17)
[2021-12-24] MEDS ORDERED: NA CHLORIDE 0.9% 50 ML ONE (02:18)
[2021-12-24] MEDS ORDERED: DOXYCYCLINE 100 MG CAP PO ONE (02:18)
[2021-12-24] MEDS ORDERED: ONDANSETRON 4 MG/2 ML VIAL IV PRN (02:46)
[2021-12-24] MEDS ORDERED: SODIUM CHLORIDE 0.9% 10ML INJ IV PRN (03:01)
--- NOTE | 2021-12-24 03:03 | P.INFCA ---
Sepsis Focused Assessment - Focused Assessment Complete? Sepsis Focused Assessment Completed?: Yes (Severe sepsis given lactate >2, <4.) - Sepsis Screen Result Severe Sepsis: Positive Septic Shock: Negative - Evaluation Current stage of sepsis: Severe sepsis - Vital Signs Reviewed: Yes Temperature: 98.2 F Heart rate: 100 Blood Pressure: 132/74 Respiratory Rate: 22 O2 Sat by Pulse Oximetry: 92 - Examination Date exam was performed: 12/24/21 Time exam was performed: 03:02 Heart: Regular rate/rhythm Lungs: Crackles Peripheral pulses: 3+ Normal Peripheral pulse location: Radial Capillary refill: <2 Seconds Skin examination: Normal turgor
[2021-12-24 04:56] LABS: Absolute Lymphocytes (CBC) 0.9 K/uL (0.7-4.9); Lymphocytes % 16.6 % (15.3-44.8); MCV 76.6 fL (80-100); MPV 8.3 fL (7.6-11.3); RBC Red Blood Cell Count 3.13 M/uL (3.86-4.86)
[2021-12-24 05:19] LABS: Albumin 1.8 g/dL (3.4-5.0); Bilirubin Total 1.1 mg/dL (0.2-1.0); Potassium 3.7 mmol/L (3.5-5.1); Protein, Total 7.3 g/dL (6.4-8.2); Troponin High Sensitivity 19.3 pg/mL (<58.9)
[2021-12-24 05:37] LABS: Blood Morphology Comment NOTED (NOT SEEN); White Blood Cell Scan OK (OK)
[2021-12-24 05:38] LABS: Anisocytosis 3+; Platelet Estimate DECR
--- NOTE | 2021-12-24 08:41 | RAD REPORT ---
EXAM DESCRIPTION: US - Extrem Venous W Compress [place] - 12/24/2021 8:27 am CLINICAL HISTORY: r/o DVT COMPARISON: None. TECHNIQUE: Real-time sonographic evaluation of the bilateral lower extremity common femoral, superfi cial femoral, popliteal and posterior tibial veins was performed. FINDINGS: Normal compressibility, flow augmentation, phasic flow and spontaneous flow are identified in the left and right lower extremity common femoral, superficial femoral, popliteal and posterior t ibial veins. No intraluminal filling defects seen. IMPRESSION: No DVT in either lower extremity.
[2021-12-24] MEDS: PANTOPRAZOLE 40 MG INJ IVP SCH ×2 (08:52→20:32)
[2021-12-24] MEDS: FUROSEMIDE 20 MG/ 2ML VIAL IV SCH ×2 (08:52→16:28)
[2021-12-24] MEDS ORDERED: FUROSEMIDE 20 MG/ 2ML VIAL ONE (08:53)
[2021-12-24] MEDS: ENOXAPARIN 40 MG/0.4 ML SQ SCH (08:53)
[2021-12-24] MEDS ORDERED: PANTOPRAZOLE 40 MG INJ ONE (08:54)
[2021-12-24] MEDS ORDERED: POTASSIUM CL SA 10 MEQ TAB PO ONE ×2 (08:54→09:00)
[2021-12-24] MEDS ORDERED: ENOXAPARIN 40 MG/0.4 ML SQ ONE (08:54)
[2021-12-24] MEDS ORDERED: DOXYCYCLINE 100 MG in NA CHLORIDE 0.9% 100 ML IVPB SCH (09:00)
--- NOTE | 2021-12-24 12:29 | CON ---
Date of Consultation: 12/24/2021 Reason For Consultation: Pneumonia, sepsis, elevated BNP, possible congestive heart failure. History Of Present Illness: Ms. Randall is a 56-year-old woman, who came in with nausea, chest pain, and shortness of breath. She had a CT and a chest x-ray that showed pneumonia versus edema, negativ e pulmonary embolus, anemia with a hemoglobin of 7.9, platelets of 96,000, BNP of 3087, normal tropon in. Had a negative cardiac workup in 2019. She is now on antibiotics and Lasix. She is feeling bet ter. Past Medical History: Includes anxiety, anemia, post polio, depression, migraine, and back pain. Allergies: NONE. Medications: At home include Zoloft. Review of Systems: Negative. Social History: Negative. Family History: Noncontributory. Physical Examination: Vital Signs: Stable, afebrile. HEENT: Negative. Neck: Supple with no bruit. Chest: Clear to auscultation and percussion. Cardiac: Revealed a regular rhythm and rate. No murmurs, gallops, or rubs. Abdomen: Benign. Extremities: Revealed no clubbing, cyanosis, or edema. Diagnostic Data: As stated earlier. Impression And Plan: I think Ms. Randall is more likely to have pneumonia with sepsis causing her el evated BNP. I do not think she has congestive heart failure. I think her BNP is elevated because of demand ischemia. I will continue antibiotics, Lasix. She really should have an extensive anemia wo rkup and maybe possibly a bone marrow biopsy. She needs to see Hematology down the road. Echocardio gram is pending. We will see what that shows before making further decisions. I agree with her pres ent regimen for now. NB/MODL Voice ID: [id number] Report ID: [id number]
--- NOTE | 2021-12-24 12:35 | P.CNS ---
Date of Consult: 12/24/21 Primary Care Provider: Dr. Cortes Chief Complaint: CHF, pneumonia, sepsis History of Present Illness: Patient is 56 years of age admitted with shortness of breath dyspnea and bilateral pneumonia having fever and chills with marked bilateral infiltrate Allergies No Known Allergies Allergy (Verified 03/24/21 10:55) Home Medications: Hydrocodone Bit/Acetaminophen [Hydrocodon-Acetaminophn 10-325] 1 each PO Q6HP PRN 03/23/21 Sertraline [Zoloft] 50 mg PO DAILY 03/23/21 - Past Medical/Surgical History Diabetic: No -: anemia -: polio-right leg -: migraines -: night cramps -: anxiety -: back pain -: left leg knee surgery -: -: Cholecystectomy Psychosocial/ Personal History: Patient lives at home with her family - Family History Mother Medical History: Hypertension Notes: polio Father Medical History: Heart disease Sister Medical History: Cancer, Other (see notes) Notes: lupus, fibromyalgia, parkinsons; brain cancer - Social History Alcohol use: No CD- Drugs: No Caffeine use: Yes Place of Residence: Home Review of Systems 10-point ROS is otherwise unremarkable General: Weakness Respiratory: Cough, Shortness of Breath Physical Examination Temp Pulse Resp BP Pulse Ox 98.4 F 82 17 124/64 96 12/24/21 07:40 12/24/21 07:40 12/24/21 07:40 12/24/21 07:40 12/24/21 04:00 General: Alert, Oriented x3 Respiratory: Crackles/rales Cardiovascular: No edema, Regular rate/rhythm, Normal S1 S2 Gastrointestinal: Normal bowel sounds, Soft and benign Laboratory Data (last 24 hrs) 12/23/21 19:35: PT 14.7 H, INR 1.33 12/23/21 19:35: WBC 7.90, Hgb 9.5 L, Hct 29.5 L, Plt Count 134 L 12/23/21 19:35: Sodium 138, Potassium 3.5, BUN 17, Creatinine 1.36 H, Glucose 118 H, Magnesium 2.0 - Problems (1) Pneumonia Current Visit: Yes Status: Acute Plan: Patient is 56 years of age admitted with severe bilateral pneumonia vital signs stable oxygenation satisfactory mild renal insufficiency and no fever patient is also mildly anemic with a microcytosis agree with diuresis echocardiogram trial of steroids patient also has red blood cells in the urine initial diagnosis is pulmonary renal syndrome i.e. Goodpasture's syndrome telemetry polyarthritis polyangiitis IgA nephropathy etc. we will order some work-up Qualifiers: Pneumonia type: due to unspecified organism
[2021-12-24] MEDS: Levofloxacin 750mg IV 750 MG/150 ML BAG IV SCH (13:00)
--- NOTE | 2021-12-24 13:33 | P.CNS ---
Date of Consult: 12/24/21 Reason for Consult: Renal insufficiency Requesting Physician: Marty Wharton Primary Care Provider: Dr. Cortes Chief Complaint: CHF, pneumonia, sepsis History of Present Illness: Pt is a 56-year-old female with history of chronic unspecified anemia, polio as a 10 month old with some post polio syndrome with some Rt leg weakness, a hx of OA who reports developing upper respiratory symptoms a few weeks ago and was placed on cefdinir on 12/10/2019 by her primary care doctor. However in the setting of increased fatigue and TSAI she presented to the ER where her labs and imaging revealed a number of abnormalities. She denies knowledge of any CKD or renal insufficiency. She denies NSAIDs use but her med review reveals Meloxicam which she says was just recent prescribed. She reports a family history of lupus. She has noticed dark urine recently. She denies peripheral edema or any rashes. Allergies No Known Allergies Allergy (Verified 03/24/21 10:55) Home Medications: Hydrocodone Bit/Acetaminophen [Hydrocodon-Acetaminophn 10-325] 1 each PO Q6HP PRN 03/23/21 Sertraline [Zoloft] 50 mg PO DAILY 03/23/21 - Past Medical/Surgical History Diabetic: No -: anemia -: polio-right leg -: migraines -: night cramps -: anxiety -: back pain -: left leg knee surgery -: -: Cholecystectomy Psychosocial/ Personal History: Patient lives at home with her family - Family History Mother Medical History: Hypertension Notes: polio Father Medical History: Heart disease Sister Medical History: Cancer, Other (see notes) Notes: lupus, fibromyalgia, parkinsons; brain cancer - Social History Alcohol use: No CD- Drugs: No Caffeine use: Yes Place of Residence: Home Review of Systems General: Fever, Weakness Eyes: Unremarkable ENT: Unremarkable Respiratory: Cough, SOB with Excertion Cardiovascular: Unremarkable Gastrointestinal: Unremarkable Genitourinary: Other (Dark urine) Musculoskeletal: Other (Arthralgias, OA) Integumentary: Unremarkable Neurological: Weakness Physical Examination Temp Pulse Resp BP Pulse Ox 98.4 F 82 17 124/64 96 12/24/21 07:40 12/24/21 07:40 12/24/21 07:40 12/24/21 07:40 12/24/21 04:00 General: Alert, In no apparent distress HEENT: Atraumatic, Normocephalic, EOMI Neck: Supple Respiratory: Normal air movement, Crackles/rales Cardiovascular: No edema, Regular rate/rhythm, Normal S1 S2, No gallops Gastrointestinal: Soft and benign, Non-distended, No tenderness Musculoskeletal: No swelling, No contractures, No erythema Integumentary: No rashes, No breakdown Neurological: Normal speech, Normal affect Laboratory Data (last 24 hrs) 12/23/21 19:35: PT 14.7 H, INR 1.33 12/23/21 19:35: WBC 7.90, Hgb 9.5 L, Hct 29.5 L, Plt Count 134 L 12/23/21 19:35: Sodium 138, Potassium 3.5, BUN 17, Creatinine 1.36 H, Glucose 118 H, Magnesium 2.0 Conclusions/Impression: 1. Abnormal results of kidney function studies. 2. Stage 1 LIZANDRO 3. Abnormal findings in urine unspecified 4. Microscopic hematuria unspecified 5. Abnormality of albumin 6. Dyspnea unspecified 7. Anemia, microcytic, unspecified -Pt's renal insufficiency may be multifactorial and recent Meloxicam/NSAID use may account for some superimposed LIZANDRO and automated UA reveals some granular casts which indicates possible ATN. Full automated UA pending but given other abnormal findings in urine including microscopic hematuria and pt reports of dark urine for a few weeks, I am concerned about a possible underlying glomerulonephritis/GN process. The ddx for mixed nephritic and or nephrotic syndromes can include post infectious GN, IgA nephropathy, lupus nephropathy, ANCA associated pauci immune GN and other. -Will send off spot urine study for Up/c and UACR -Will send off serologic and complement studies. -Will order renal u/s to eval renal parenchyma. If w/u is abnormal, may consider renal biopsy, since pt has been on NSAIDs recently, will have to wait for 5-7 days off any ASA or ASA related products before a renal biopsy can be performed. -Will monitor renal function closely with the diuresis ordered by the primary team in light of her radiographic findings and elevated BNP levels. Will f/u on echo. -Hold off on any ISACC inhibitors at this time. -Avoid nephrotoxins, no NSAIDs Thank you for this referral, Jaron Espinal MD, [facility]
--- NOTE | 2021-12-24 13:57 | EKG ---
Test Date: 2021-12-23 Test Time: 19:08:38 Jig Builder: LAWRENCE MEASUREMENT RESULTS: Intervals: Rate: 91 MA: 168 QRSD: 86 QT: 394 QTc: 484 [place]: P: 27 MA: 168 QRS: 101 T: 7 INTERPRETIVE STATEMENTS: Normal sinus rhythm Rightward axis Prolonged QT Abnormal ECG Compared to ECG 09/30/2019 14:05:35 Right-axis deviation now present Prolonged QT interval now present Sinus bradycardia no longer present Electronically Signed On 12-24-21 13:55:11 CDT by Ronald Walsh
[2021-12-24] MEDS: METHYLPREDNISOLONE 125 MG INJ IV SCH ×2 (14:00→20:32)
[2021-12-24] MEDS ORDERED: Levofloxacin 750mg IV 750 MG/150 ML BAG IV ONE (14:23)
--- NOTE | 2021-12-24 14:23 | ECHO ---
HEIGHT: 5 ft 4 in WEIGHT: 200 lb 0.054 oz DATE OF STUDY: 12/24/[address]: Marty Wharton NP 2-DIMENSIONAL: YES M.MODE: YES DOPPLER: YES COLOR FLOW: YES TDS: NO PORTABLE: YES DEFINITY: NO BUBBLE STUDY: NO DIAGNOSIS: CONGESTIVE HEART FAILURE CARDIAC HISTORY: CATHERIZATION: SURGERY: PROSTHETIC VALVE: PACEMAKER: MEASUREMENTS (cm) DIASTOLIC (NORMALS) SYSTOLIC (NORMALS) IVSd 0.9 (0.6-1.2) LA Diam 3.9 (1.9-4.0) LVEF 55-60% LVIDd 5.5 (3.5-5.7) LVIDs 4.0 (2.0-3.5) %FS 27% LVPWd 1.0 (0.6-1.2) Ao Diam 3.5 (2.0-3.7) 2 DIMENSIONAL ASSESSMENT: RIGHT ATRIUM: NORMAL LEFT ATRIUM: NORMAL RIGHT VENTRICLE: NORMAL LEFT VENTRICLE: NORMAL TRICUSPID VALVE: NORMAL MITRAL VALVE: PULMONIC VALVE: AORTIC VALVE: NORMAL PERICARDIAL EFFUSION: NONE AORTIC ROOT: NORMAL LEFT VENTRICULAR WALL MOTION: NORMAL DOPPLER/COLOR FLOW: SEE BELOW. COMMENTS: NORMAL LEFT VENTRICULAR EJECTION FRACTION 55-60% WITH NORMAL WALL MOTION. MILD MITRAL AND PULMONARY REGURGITATION. MILD MITRAL STENOSIS. MODERATE DIASTOLIC DYSFUNCTION. TECHNOLOGIST: Su STAUFFER
[2021-12-24 14:31] LABS: Specific Gravity 1.023 (1.005-1.030); Urine Bacteria <20 /HPF (<20); Urine Bilirubin NEGATIVE (Negative); Urine Blood 3+ (OVER) (Negative); Urine Clarity Turbid (Clear); Urine Color Light-Orange (Yellow); Urine Crystals Unidentified Few /HPF (None Seen); Urine Glucose NEGATIVE (Negative); Urine Protein 2+ (Negative); Urine RBC >50 /HPF (None Seen); Urine Urobilinogen Normal (Normal); Urine pH 5.5 (5.0-7.0)
--- NOTE | 2021-12-24 14:34 | RAD REPORT ---
EXAM DESCRIPTION: US - Renal Ultrasound-Complete - 12/24/2021 2:21 pm CLINICAL HISTORY: Renal insufficiency Flank pain COMPARISON: No comparisons FINDINGS: Prominent echogenic kidneys noted bilaterally. The right kidney measures 10.6 x 5.0 x 4.9 cm. No hydronephrosis, focal mass or perinephric fluid. The left kidney measures 11.8 x 5.0 x 4.9 cm. No hydronephrosis, focal mass or perinephric fluid. The urinary bladder is incompletely distended without gross abnormality seen. IMPRESSION: Prominent bilateral echogenic kidneys compatible with underlying medical renal disease.
[2021-12-24] MEDS ORDERED: METHYLPREDNISOLONE 125 MG INJ ONE (15:02)
[2021-12-24 15:13] LABS: Ferritin 57.2 ng/mL (8-388)
[2021-12-24 17:49] LABS: UR PROTEIN 119.4 mg/dL (<11.9); Urine Protein/Creatinine Ratio 1.22 ratio (<0.15)
[2021-12-24] MEDS ORDERED: CEFTRIAXONE 1,000 MG in NA CHLORIDE 0.9% 50 ML IVPB SCH (20:00)
[2021-12-24 21:40] LABS: Hematocrit 25.8 % (36.0-45.0); MCV 76.2 fL (80-100); MPV 8.2 fL (7.6-11.3); RBC Red Blood Cell Count 3.39 M/uL (3.86-4.86)
[2021-12-25 06:44] LABS: Absolute Lymphocytes (CBC) 1.1 K/uL (0.7-4.9); Hematocrit 24.7 % (36.0-45.0); Lymphocytes % 11.4 % (15.3-44.8); MCV 75.7 fL (80-100); MPV 7.4 fL (7.6-11.3); RBC Red Blood Cell Count 3.26 M/uL (3.86-4.86)
[2021-12-25 07:05] LABS: C-Reactive Protein 35.4 mg/L (<3.00); Potassium 3.5 mmol/L (3.5-5.1); Protein, Total 7.3 g/dL (6.4-8.2)
[2021-12-25 08:10] LABS: Blood Morphology Comment NOTED (NOT SEEN); White Blood Cell Scan OK (OK)
[2021-12-25 08:11] LABS: Anisocytosis 3+; Platelet Estimate DECR
[2021-12-25] MEDS ORDERED: POTASSIUM CL SA 10 MEQ TAB PO ONE (09:00)
[2021-12-25] MEDS: FUROSEMIDE 20 MG/ 2ML VIAL IV SCH ×2 (09:18→17:19)
[2021-12-25] MEDS: ENOXAPARIN 40 MG/0.4 ML SQ SCH (09:18)
[2021-12-25] MEDS: PANTOPRAZOLE 40 MG INJ IVP SCH ×2 (09:19→20:46)
[2021-12-25] MEDS: METHYLPREDNISOLONE 125 MG INJ IV SCH ×2 (09:19→20:56)
--- NOTE | 2021-12-25 09:42 | P.PN ---
Subjective Date of Service: 12/25/21 Primary Care Provider: Dr. Cortes Chief Complaint: CHF, pneumonia, sepsis Subjective: Improving (No change in patient's condition she still have cough congestion shortness of breath) Review of Systems General: Weakness Physical Examination - Vital Signs Temperature: 97.6 F Blood Pressure: 140/66 Pulse: 91 Respirations: 16 Pulse Ox (%): 90 - Physical Exam General: Mild distress Respiratory: Crackles/rales, Expiratory wheezes Cardiovascular: No edema, Regular rate/rhythm - Studies Microbiology Data (last 24 hrs): 12/23/21 20:03 Clean Catch Urine Deshler Count - Final <10,000 CFU/ML. 12/23/21 20:03 Clean Catch Urine - Final MIXED TONNY. Assessment And Plan - Current Problems (Diagnosis) (1) Pneumonia Current Visit: Yes Status: Acute Plan: Patient admitted with pneumonia bilateral infiltrates serological work-up is pending so has renal failure presumed chronic patient has hematuria proteinuria seen by nephrology continue with steroid. Chest x-ray does not appear to have a typical bacterial pneumonia normal left ventricular function possible diastolic dysfunction currently patient has a history of anemia was informed to have a colonoscopy and endoscopy done to look for a source of her bleeding Qualifiers: Pneumonia type: due to unspecified organism (2) Iron deficiency anemia Current Visit: Yes Status: Acute Plan: Plan to transfuse iron for now she has low transferrin saturation borderline low ferritin level Qualifiers: Iron deficiency anemia type: unspecified iron deficiency Qualified Code(s): D50.9 - Iron deficiency anemia, unspecified
--- NOTE | 2021-12-25 10:36 | PN ---
Date of Progress Note: 12/25/2021 The patient came in with pneumonia, sepsis, elevated BNP, and possible congestive heart failure. Ech ocardiogram showed an ejection fraction of 66% with some moderate diastolic dysfunction, minimal mitr al stenosis, normal ejection fraction of 60%. No effusion. Today, her vital signs are stable. Afeb rile. O2 saturation is still about 90% on nasal cannula. She is on Lovenox. She is on Lasix. She is on antibiotics, steroid, Protonix. Her blood pressure is mildly controlled. Pulse is 91. May be nefit from a low-dose carvedilol considering her diastolic dysfunction. CARLITO/MODL Voice ID: [id number] Report ID: [id number]
--- NOTE | 2021-12-25 11:57 | RAD REPORT ---
EXAM DESCRIPTION: Silvano Single View12/25/2021 11:37 am CLINICAL HISTORY: Chest pain COMPARISON: December 23, 2021 FINDINGS: Mild worsening in extensive bilateral pulmonary opacities. Heart is normal size IMPRESSION: Mild worsening in extensive bilateral pulmonary opacities which may represent pulmonary edema or pneumonia
--- NOTE | 2021-12-25 12:34 | P.PN ---
Date of Service: 12/25/21 Nephrology note: (S) Pt reports still short of breath and that TSAI worse when getting up to go to the bathroom. UOP not documented, she does report that urine is less dark. (O) General: Alert, In no apparent distress HEENT: Atraumatic, Normocephalic, EOMI Neck: Supple Respiratory: Normal air movement, Crackles/rales Cardiovascular: No edema, Regular rate/rhythm, Normal S1 S2, No gallops Gastrointestinal: Soft and benign, Non-distended, No tenderness Musculoskeletal: No swelling, No contractures, No erythema Integumentary: No rashes, No breakdown Neurological: Normal speech, Normal affect Laboratory Data (last 24 hrs) Reviewed in the EMR Conclusions/Impression: 1. Abnormal results of kidney function studies. 2. Stage II LIZANDRO 3. Abnormal findings in urine unspecified 4. Microscopic hematuria unspecified 5. Abnormality of albumin 6. Dyspnea unspecified 7. Anemia, microcytic, unspecified 8. Proteinuria, unspecified 9. Iron deficiency -Pt's renal insufficiency on presentation was felt to be multifactorial and recent Meloxicam/NSAID use may have accounted for some superimposed LIZANDRO and automated UA reveals some granular casts which indicates possible ATN. Cr level marginally higher today but pt did also receive contrast with CTA on admission. However, equally concerning are the abnormal findings in urine including microscopic hematuria and pt reports of dark urine for a few weeks, I am concerned about a possible underlying glomerulonephritis/GN process. The ddx for mixed nephritic and or nephrotic syndromes can include post infectious GN, IgA nephropathy, lupus nephropathy, ANCA associated pauci immune GN and other. With respiratory infiltrates and renal impairment, there is the possibility of Jaime's disease. Empiric steroids have been ordered by the primary team but the dose falls short of the higher pulse steroid doses. -Interestingly spot urine studies show proteinuria without microalbuminuria, which could indicate tubular proteinuria or other proteinuria (will check SPEP, FLC). Pt does have some protein albumin gap. -Did send off serologic and complement studies. -Did order renal u/s to eval renal parenchyma and the kidneys do appear echogenic c/w an intrinsic process/injury. If w/u is abnormal, may consider renal biopsy, since pt has been on NSAIDs recently, will have to wait for 5-7 days off any ASA or ASA related products before a renal biopsy can be performed. -Will monitor renal function closely with the diuresis ordered by the primary team in light of her radiographic findings and elevated BNP levels. Echo shows preserved LVEF but some diastolic dysfunction -Hold off on any ISACC inhibitors at this time. -Avoid nephrotoxins, no NSAIDs Jaron Espinal MD, [facility]
[2021-12-25] MEDS: SOD FERRIC GLUC COMPLX/SUCROSE 250 MG in NA CHLORIDE 0.9% 250 ML IV SCH (14:33)
[2021-12-25] MEDS: Levofloxacin 750mg IV 750 MG/150 ML BAG IV SCH (17:20)
[2021-12-25] MEDS: HYDROCODONE/APAP 5/325 MG TAB PO PRN (17:27)
[2021-12-25] MEDS ORDERED: FUROSEMIDE 40 MG/4 ML VIAL IV ONE (21:02)
[2021-12-25] MEDS ORDERED: FUROSEMIDE 40 MG/4 ML VIAL ONE (21:10)
[2021-12-25 21:44] LABS: Arterial Blood Carboxyhemoglob 1.8 % (0-1.5); Blood Gas Oxyhemoglobin 88.6 % (94-97); Blood O2 Saturation 91.1 % (92-98.5)
--- NOTE | 2021-12-25 22:01 | P.PN ---
Date of Service: 12/25/21 Subjective: feels breathing is slightly better - slept better tearful this morning, frustrated, stressed; is sick still dyspneic with minimal exertion ROS: 10 point ROS as noted above, otherwise negative Physical Exam: Gen: tearful, AOx3 HEENT: normal conjunctiva, sclera anicteric CV: regular rate & rhythm, no edema Pulm: mildly labored respirations on 3L NC. b/l crackles Abd: soft, non-tender, non-distended Neuro: normal speech, tearful vitals reviewed Problem List Sepsis secondary to possible bilateral pneumonia acute hypoxemic respiratiory failure new onset CHF- diastolic (HFpEF) LIZANDRO Microcytic anemia/ ADRIANNA h/o RA patient reports mild improvement. unclear etiology, review of CT chest - with atypical infectious appearance, pulm consulted possibly CHF component TTE: moderate diastolic dysfunction continue lasix, repeat CXR LIZANDRO NSAID usage, received IV contrast for CT in ED worsening nephrology consulted continue diuresis iron def anemia start IV iron per pulm h/o RA multiple family members with lupus possible autoimmune etiology - ?lupus labs sent VTE: lovenox Code: full Dispo: home, 3-4 days Time Spent Managing Pts Care (In Minutes): 35
[2021-12-26 05:16] LABS: Absolute Lymphocytes (CBC) 0.9 K/uL (0.7-4.9); Hematocrit 26.1 % (36.0-45.0); Lymphocytes % 9.4 % (15.3-44.8); MCV 76.7 fL (80-100); MPV 8.2 fL (7.6-11.3); RBC Red Blood Cell Count 3.41 M/uL (3.86-4.86)
[2021-12-26 05:41] LABS: C-Reactive Protein 35.3 mg/L (<3.00); Potassium 3.7 mmol/L (3.5-5.1); Protein, Total 7.3 g/dL (6.4-8.2)
[2021-12-26] MEDS ORDERED: carvediloL 3.125 MG TAB PO SCH (06:00)
--- NOTE | 2021-12-26 06:19 | P.PN ---
Date of Service: 12/26/21 Subjective: More hypoxic and with respiratory distress yesterday afternoon/evening, transferred to ICU Placed on BiPAP overnight, feels she is breathing much easier with BiPAP No new symptoms +anxiety ROS: 10 point ROS as noted above, otherwise negative Physical Exam: Gen: AOx3, anxious HEENT: normal conjunctiva, sclera anicteric CV: regular rate & rhythm, no edema Pulm: b/l crackles, on BIPAP 70% FiO2 Abd: soft, non-tender, non-distended Neuro: normal speech, anxious, moves all extremities vitals reviewed Problem List Sepsis secondary to possible bilateral pneumonia acute hypoxemic respiratiory failure new onset CHF- diastolic (HFpEF) LIZANDRO Microcytic anemia/ ADRIANNA h/o RA feels more comfortable on BIPAP unclear etiology, review of CT chest - with atypical infectious appearance, pulm consulted possibly CHF component, lupus TTE: moderate diastolic dysfunction continue lasix, repeat CXR this morning: no significant change steroids initiated 125 IV BID solumedrol by pulm on 12/24, increased to 1g daily total on 12/26 LIZANDRO NSAID usage, received IV contrast for CT in ED; ?lupus nephritis ?ANCA nephrology consulted continue diuresis - lasix increased to 40mg BID 12/25 from 20mg BID IV on 12/26 high dose steroids as above iron def anemia started IV iron per pulm 12/25 h/o RA multiple family members with lupus possible autoimmune etiology - ?lupus labs sent VTE: lovenox Code: full Dispo: home, 3-4 days Time Spent Managing Pts Care (In Minutes): 35
[2021-12-26] MEDS: PANTOPRAZOLE 40 MG INJ IVP SCH ×2 (07:56→21:44)
[2021-12-26] MEDS: FUROSEMIDE 40 MG/4 ML VIAL IV SCH ×2 (07:56→17:41)
[2021-12-26] MEDS: METHYLPREDNISOLONE 125 MG INJ IV SCH ×2 (07:58→13:29)
[2021-12-26] MEDS: ENOXAPARIN 40 MG/0.4 ML SQ SCH (07:58)
--- NOTE | 2021-12-26 08:13 | RAD REPORT ---
EXAM DESCRIPTION: RAD - Chest Single View - 12/26/2021 6:17 am CLINICAL HISTORY: Pneumonia COMPARISON: Chest Single View dated 12/25/2021; Chest Single View dated 12/23/2021; Chest Single View d ated 09/29/2019; Chest Single View dated 11/01/2017 FINDINGS: Lines: None. Lungs: Widespread pulmonary opacities without change. Pleural: No significant pleural effusions or pneumothorax. Cardiac: Cardiomegaly. Mediastinum: Within normal limits. Bones: No acute fractures. Other: None IMPRESSION: Widespread airspace disease without significant interval change that may reflect multifo paul pneumonia and/or edema.
[2021-12-26] MEDS: SOD FERRIC GLUC COMPLX/SUCROSE 250 MG in NA CHLORIDE 0.9% 250 ML IV SCH (08:46)
[2021-12-26] MEDS ORDERED: LORAZEPAM 0.5 MG TABLET PO PRN (09:40)
[2021-12-26] MEDS ORDERED: VANCOMYCIN 2 GM in NA CHLORIDE 0.9% 500 ML IVPB SCH (10:00)
[2021-12-26] MEDS ORDERED: VANCOMYCIN 2.25 GM in NA CHLORIDE 0.9% 500 ML IVPB ONE (11:00)
[2021-12-26] MEDS: carvediloL 3.125 MG TAB PO SCH ×2 (11:48→17:41)
[2021-12-26] MEDS ORDERED: POTASSIUM 25 MEQ EFFERV TAB PO ONE (12:00)
[2021-12-26] MEDS: Levofloxacin 750mg IV 750 MG/150 ML BAG IV SCH (12:09)
[2021-12-26 12:47] LABS: Potassium 3.4 mmol/L (3.5-5.1)
--- NOTE | 2021-12-26 14:28 | PN ---
Date of Progress Note: 12/26/2021 Subjective: The patient was seen and examined in ICU room 8. Interval History: The patient remains on BiPAP. She has had desaturations overnight when she was at tempted to be weaned off the BiPAP. She is complaining of severe anxiety, wants some anxiety medicat ions, and also wants a fan. She wants to drink some Ensure. Per reports of nursing staff, she has n ot been able to eat much because of her severe hypoxia and oxygen desaturations. Physical Examination: Vital Signs: Showing temperature of 96.4, pulse rate of 76, respiratory rate of 38, and blood pressu re of 141/77. She is saturating 98%. General: She appears in [id number] distress, currently on BiPAP. HEENT: Shows atraumatic head. Lungs: Auscultation of the lungs revealed bilateral equal air entry with diminished breath sounds ov erall. Abdomen: Obese and nontender. Extremities: Showed no evidence of edema. Genitourinary: Cotton catheter in place and about 300 cc of urine noted in there. Laboratory Data: At this time are showing sodium of 142, potassium of 3.4, chloride of 109, bicarb o f 25, BUN of 43, and creatinine of 1.76. Her LFTs showing slightly elevated AST. C-reactive protein was elevated to 35 and albumin is down to 2. SPEP is still pending. Procalcitonin was mildly eleva heather. CBC showing hemoglobin of 8.6, hematocrit of 26.1, and platelet count of 121. ESR was more sarah n 140. Immunoglobulin light chains are still pending and complement levels are also still pending. ANCA levels have been sent off and LIAM levels are also pending. Current Medications: Include Solu-Medrol 125 mg every 6 hours, Coreg, Lasix 40 mg IV b.i.d., hydroco done p.r.n. for pain, Levaquin 750 mg every 24 hours, Ferrlecit, 1 time dose of potassium chloride an d vancomycin 1.5 g every 36 hours. Impression: 1.Acute renal failure, etiology likely secondary to underlying glomerulonephritis versus acute tubul ar necrosis, but this seems to be more favoring glomerulonephritis and more particularly ANCA vasculi tis given her urinalysis which was consistent with some proteinuria as well as hematuria along with p ulmonary findings which is leading more towards ANCA vasculitis at this time. Given the situation wi th respiratory distress and everything, she would benefit from increased dose of steroids, so I am go ing to increase the Solu-Medrol to 500 mg every 12 hours. We will consider biopsy in the near future once her respiratory failure stabilizes. If in the meanwhile ANCA serologies come back positive, sh iqra would benefit from plasma exchanges. 2.Respiratory failure, etiology unclear, but this seems to be related to the renal failure. She has also been treated for congestive heart failure exacerbation and with steroids as well. Continue BiP AP and wean down as tolerated. 3.Anemia secondary to chronic disease. She is currently getting Ferrlecit. Monitor hemoglobin and transfuse p.r.n. 4.Hypertension. Continue carvedilol. Avoid further hypotension and drops in blood pressures. 5.Anxiety. Okay with doing the Ativan. 6.Strong family history of lupus, pending lupus workup. Plan: Overall, the patient's condition is very concerning for underlying pauci-immune glomerulonephr itis with lung involvement, hence I will increase steroids, monitor urine output closely and await se rologies at this time, and if serologies are positive for ANCA, she would benefit from plasma exchang e and possibly transfer for higher level of care. Discussed the plan with Dr. Sorensen in detail. All questions are answered. Her family was also at bedside and all questions were answered in detail. Time spent about 45 minutes. VANNESA/LAURENCE Voice ID: [id number] Report ID: [id number]
[2021-12-26 16:23] LABS: HIV AG/AB 4TH GEN Non-reactive (Non-reactive)
[2021-12-26] MEDS ORDERED: METHYLPREDNISOLONE 125 MG INJ IV SCH (21:00)
[2021-12-26] MEDS: METHYLPRED NA SUC 500 MG in NA CHLORIDE 0.9% 100 ML IV SCH (21:44)
[2021-12-27 05:34] LABS: Absolute Lymphocytes (CBC) 0.7 K/uL (0.7-4.9); Hematocrit 25.5 % (36.0-45.0); Lymphocytes % 11.1 % (15.3-44.8); MCV 78.1 fL (80-100); MPV 7.5 fL (7.6-11.3); RBC Red Blood Cell Count 3.26 M/uL (3.86-4.86)
[2021-12-27 05:53] LABS: Albumin 1.9 g/dL (3.4-5.0); Magnesium 2.2 mg/dL (1.8-2.4); Potassium 3.2 mmol/L (3.5-5.1); Protein, Total 6.8 g/dL (6.4-8.2)
--- NOTE | 2021-12-27 06:04 | P.PN ---
Date of Service: 12/27/21 Subjective: no acute events overnight remains on bipap Low-dose Ativan helped Feels slightly better today ROS: 10 point ROS as noted above, otherwise negative Physical Exam: Gen: AOx3, anxious HEENT: normal conjunctiva, sclera anicteric CV: regular rate & rhythm, no edema Pulm: b/l crackles, on BIPAP 70% FiO2 Abd: soft, non-tender, non-distended Neuro: normal speech, moves all extremities Cotton in place vitals reviewed Problem List Sepsis secondary to possible bilateral pneumonia acute hypoxemic respiratiory failure new onset CHF- diastolic (HFpEF) LIZANDRO Microcytic anemia/ ADRIANNA h/o RA feels more comfortable on BIPAP unclear etiology, review of CT chest - with atypical infectious appearance, pulm consulted possibly CHF component, lupus, goodpasture's TTE: moderate diastolic dysfunction continue lasix, repeat CXR this morning: no significant change steroids initiated 125 IV BID solumedrol by pulm on 12/24, increased to 1g daily total on 12/26 Transferred to ICU on 12/25 for closer monitoring on BiPAP, Cotton placed on 12/25 LIZANDRO 05/27 NSAID usage, received IV contrast for CT in ED; ?lupus nephritis ?ANCA nephrology consulted continue diuresis - lasix increased to 40mg BID 12/25 from 20mg BID IV on 12/26 high dose steroids as above iron def anemia started IV iron per pulm 12/25 h/o RA multiple family members with lupus possible autoimmune etiology - ?lupus labs sent VTE: lovenox Code: full Dispo: home, 3-4 days, may need tertiary care center pending results - if needs plasmapheresis Time Spent Managing Pts Care (In Minutes): 35
--- NOTE | 2021-12-27 07:24 | RAD REPORT ---
EXAM DESCRIPTION: Silvano Single View12/27/2021 6:16 am CLINICAL HISTORY: Shortness breath COMPARISON: December 26 FINDINGS: No significant change diffuse bilateral pulmonary opacities Heart is normal size IMPRESSION: No significant change diffuse bilateral pulmonary opacities which may represent pneumoni a, pulmonary edema or ARDS
[2021-12-27] MEDS: carvediloL 3.125 MG TAB PO SCH ×2 (07:42→17:27)
[2021-12-27] MEDS: PANTOPRAZOLE 40 MG INJ IVP SCH ×2 (08:51→20:02)
[2021-12-27] MEDS: ENOXAPARIN 40 MG/0.4 ML SQ SCH (08:51)
[2021-12-27] MEDS: FUROSEMIDE 40 MG/4 ML VIAL IV SCH ×2 (08:51→17:27)
[2021-12-27] MEDS: SERTRALINE HCL 50 MG TAB PO SCH (08:51)
[2021-12-27] MEDS ORDERED: POTASSIUM CL SA 10 MEQ TAB PO ONE (09:00)
[2021-12-27] MEDS: SOD FERRIC GLUC COMPLX/SUCROSE 250 MG in NA CHLORIDE 0.9% 250 ML IV SCH (09:06)
[2021-12-27] MEDS: METHYLPRED NA SUC 500 MG in NA CHLORIDE 0.9% 100 ML IV SCH ×2 (09:06→19:56)
--- NOTE | 2021-12-27 11:30 | P.PN ---
Subjective Date of Service: 12/27/21 Primary Care Provider: Dr. Cortes Chief Complaint: Diffuse bilateral pneumonia acute renal failure No change still tachypneic chest x-ray shows diffuse bilateral pneumonia consistent with ARDS Review of Systems General: Weakness Respiratory: Cough, Shortness of Breath Physical Examination - Vital Signs Temperature: 97.3 F Blood Pressure: 131/70 Pulse: 75 Respirations: 25 Pulse Ox (%): 91 - Physical Exam General: Alert, Moderate distress Respiratory: Crackles/rales, Rhonchi/gurgles Cardiovascular: No edema, Regular rate/rhythm, Normal S1 S2 Gastrointestinal: Normal bowel sounds, Soft and benign Assessment And Plan - Current Problems (Diagnosis) (1) Iron deficiency anemia Current Visit: Yes Status: Acute Plan: Plan to transfuse iron for now she has low transferrin saturation borderline low ferritin level Qualifiers: Iron deficiency anemia type: unspecified iron deficiency Qualified Code(s): D50.9 - Iron deficiency anemia, unspecified (2) ARDS (adult respiratory distress syndrome) Current Visit: Yes Status: Acute Plan: Patient is 56 years of age admitted with ARDS she is got diffuse bilateral pneumonia hemoglobin is stable 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 intake may need a Dobbhoff
--- NOTE | 2021-12-27 12:40 | PN ---
Date of Progress Note: 12/26/2021 The patient's creatinine today is 1.79, hemoglobin 8.6. Electrolytes have normalized. She does have a mild mitral stenosis on echocardiogram with normal ejection fraction. She is on Lasix, Lovenox, a nd antibiotics. I suggest a low-dose beta-edith for her regimen in addition what she is on. Other gonzales, I will continue to follow on an as-needed. We will see her in the office as an outpatient afte r she goes home. KATIANA Voice ID: [id number] Report ID: [id number]
[2021-12-27] MEDS: Levofloxacin 750mg IV 750 MG/150 ML BAG IV SCH (13:09)
--- NOTE | 2021-12-27 15:10 | PN ---
Date of Progress Note: 12/27/2021 Subjective: The patient was seen and examined at bedside. She remains on BiPAP; however, she states that she is doing slightly better. She is able to the eat and wear the BiPAP back on; however, she still continues to have desaturation. Her urine output remains decent. Reported urinary output is a bout 1200 cc since the last 24 hours. She has another 650 mL of urine in there. Objective: General: She appears in no acute distress. HEENT: Shows atraumatic head. Lungs: Auscultation of lungs revealed bilateral diminished breath sounds. She is currently on BiPAP . Abdomen: Soft and nontender. Extremities: Showed no evidence of edema; however, she does have some dependent edema. Laboratory Data: Showing creatinine of 1.67, BUN of 53, potassium of 3.2, and sodium of 143. CBC sh owing hemoglobin of 8.2, hematocrit of 25.5, and platelet count of 100. Her HIV is nonreactive and h er complement levels are showing low levels of complement C4. Current Medications: Have been reviewed in detail. 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 The patient's serologies are currently pending. We have started her on pulse dose steroids since yesterday. She is nonoliguric and urine output seems to be stabilizing. We are awaiting the results of further serologies that we have ordered. In the meanwhile, we will continue supportive measures and follow up closely. 2.Decreased complement C4 and thrombocytopenia favoring lupus at this time. We will await LIAM serol ogies. 3.Respiratory failure, etiology likely secondary to vasculitis versus from congestive heart failure exacerbation. She is being followed by Dr. Faustin. She remains on Lasix to improve her volume stat us and to keep her on the pulp drier side. We will continue the Lasix and monitor closely. 4.Hypokalemia. The patient's potassium is being replaced with 40 mEq of potassium chloride and foll ow up closely. 5.Debility and weakness. Continue to monitor closely and physical therapy and respiratory status im proves. Plan: The patient is overall doing okay. Chest x-ray has been reviewed showing diffuse bilateral pu lmonary opacities with no significant change. The favoring pneumonia versus ARDS, the patient remain s on high-dose steroids and may benefit from bronchoscopy if her respiratory continues to get worse. She is getting high-dose steroids. Monitor labs closely and urine output and we will follow up on s erologies and consider plasma exchange if ANCA serologies come back positive. VANNESA/LAURENCE Voice ID: [id number] Report ID: [id number]
[2021-12-27] MEDS: ENSURE ENLIVE 237 ML CAN PO SCH ×2 (17:27→20:01)
[2021-12-27] MEDS: LORAZEPAM 0.5 MG TABLET PO PRN (17:37)
[2021-12-27] MEDS: VANCOMYCIN 1.5 GM in NA CHLORIDE 0.9% 500 ML IVPB SCH (22:39)
[2021-12-28 05:04] LABS: Absolute Lymphocytes (CBC) 0.7 K/uL (0.7-4.9); Hematocrit 25.6 % (36.0-45.0); Lymphocytes % 9.2 % (15.3-44.8); MCV 78.7 fL (80-100); MPV 8.3 fL (7.6-11.3); RBC Red Blood Cell Count 3.25 M/uL (3.86-4.86)
[2021-12-28 05:23] LABS: Albumin 1.9 g/dL (3.4-5.0); Bilirubin Total 1.1 mg/dL (0.2-1.0); C-Reactive Protein 36.1 mg/L (<3.00); Magnesium 2.3 mg/dL (1.8-2.4); Phosphorus 3.2 mg/dL (2.5-4.9); Potassium 3.3 mmol/L (3.5-5.1); Protein, Total 6.5 g/dL (6.4-8.2)
[2021-12-28] MEDS: carvediloL 3.125 MG TAB PO SCH (05:28)
--- NOTE | 2021-12-28 06:48 | P.PN ---
Date of Service: 12/28/21 Subjective: no acute events overnight feels slightly better back hurts less, slight deeper breath no new symptoms/worsening tolerated short duration of HFNC and able to eat / drink ensure ROS: 10 point ROS as noted above, otherwise negative Physical Exam: Gen: AOx3, NAD HEENT: normal conjunctiva, sclera anicteric CV: regular rate & rhythm, no edema Pulm: b/l crackles, on BIPAP 80% FiO2 Abd: soft, non-tender, non-distended Neuro: normal speech, moves all extremities Cotton in place vitals reviewed Problem List Sepsis secondary to possible bilateral pneumonia acute hypoxemic respiratiory failure new onset CHF- diastolic (HFpEF) LIZANDRO Microcytic anemia/ ADRIANNA h/o RA feels more comfortable on BIPAP unclear etiology, review of CT chest - with atypical infectious appearance, pulm consulted possibly CHF component, lupus, auto-immune process TTE: moderate diastolic dysfunction continue lasix, repeat CXR this morning: no significant change steroids initiated 125 IV BID solumedrol by pulm on 12/24, increased to 1g daily total on 12/26 Transferred to ICU on 12/25 for closer monitoring and hypoxemia - now on BiPAP, Cotton placed on 12/25 slow improvement, intermittent HFNC to eat / as tolerated LIZANDRO 05/27 NSAID usage, received IV contrast for CT in ED; ?lupus nephritis ?ANCA nephrology consulted continue diuresis - lasix increased to 40mg BID 12/25 from 20mg BID IV on 12/26 high dose steroids as above iron def anemia started IV iron per pulm 12/25 h/o RA multiple family members with lupus possible autoimmune etiology - ?lupus labs sent risk for auto-immune processes anxious with everything going on, and is hospitalized in [place] waiting for liver transplant low dose ativan helping VTE: lovenox Code: full Dispo: home, 3-4 days, may need tertiary care center pending results - if needs plasmapheresis ANCA result expected 12/30 Time Spent Managing Pts Care (In Minutes): 35
--- NOTE | 2021-12-28 07:21 | RAD REPORT ---
EXAM DESCRIPTION: Silvano Single View12/28/2021 6:58 am CLINICAL HISTORY: Shortness of breath COMPARISON: December 27, 2021 FINDINGS: No significant change the diffuse bilateral pulmonary opacities. Heart is borderline enlarged IMPRESSION: No significant change in the diffuse bilateral pulmonary opacities could represent pulmo nary edema, pneumonia or ARDS
[2021-12-28 08:42] LABS: Arterial Blood Carboxyhemoglob 1.8 % (0-1.5); Blood Gas Oxyhemoglobin 89.8 % (94-97); Blood O2 Saturation 92.4 % (92-98.5)
[2021-12-28] MEDS: METHYLPRED NA SUC 500 MG in NA CHLORIDE 0.9% 100 ML IV SCH ×2 (08:42→19:40)
[2021-12-28] MEDS: PANTOPRAZOLE 40 MG INJ IVP SCH (08:42)
[2021-12-28] MEDS: SOD FERRIC GLUC COMPLX/SUCROSE 250 MG in NA CHLORIDE 0.9% 250 ML IV SCH (08:42)
[2021-12-28] MEDS: FUROSEMIDE 40 MG/4 ML VIAL IV SCH ×2 (08:43→16:53)
[2021-12-28] MEDS: ENOXAPARIN 40 MG/0.4 ML SQ SCH (08:43)
[2021-12-28] MEDS: SERTRALINE HCL 50 MG TAB PO SCH (08:45)
[2021-12-28] MEDS ORDERED: FLUCONAZOLE 100 MG TAB PO SCH (09:00)
[2021-12-28] MEDS: ENSURE ENLIVE 237 ML CAN PO SCH ×2 (09:36→19:39)
[2021-12-28] MEDS ORDERED: HYDROMORPHONE HCL 1 MG/ML INJ IV PRN (10:00)
--- NOTE | 2021-12-28 10:00 | P.PN ---
Subjective Date of Service: 12/28/21 Primary Care Provider: Dr. Cortes Chief Complaint: Diffuse bilateral pneumonia acute renal failure Condition stable may be improving slightly able to tolerate high flow nasal cannula O2 patient drinking some Ensure still tachypneic Review of Systems Respiratory: Cough, Shortness of Breath Physical Examination - Vital Signs Temperature: 97 F Blood Pressure: 114/66 Pulse: 77 Respirations: 24 Pulse Ox (%): 95 - Physical Exam General: Alert, Oriented x3, Moderate distress Respiratory: Clear to auscultation bilaterally, Diminished Cardiovascular: No edema, Regular rate/rhythm Gastrointestinal: Normal bowel sounds, Soft and benign Assessment And Plan - Current Problems (Diagnosis) (1) ARDS (adult respiratory distress syndrome) Current Visit: Yes Status: Acute Plan: Patient has ARDS currently on high doses of steroids add Diflucan high risk for fungal infection patient is on levofloxacin and vancomycin. Creatinine is improving chest x-ray no change HIV and COVID tests are both negative serum complements are low patient is tolerating BiPAP
[2021-12-28] MEDS: FLUCONAZOLE 100 MG TAB PO SCH (12:07)
[2021-12-28] MEDS: Levofloxacin 750mg IV 750 MG/150 ML BAG IV SCH (12:07)
[2021-12-28] MEDS ORDERED: POTASSIUM CL SA 10 MEQ TAB PO ONE (12:41)
--- NOTE | 2021-12-28 13:07 | PN ---
Date of Progress Note: 12/28/2021 Subjective: The patient was seen and examined at bedside. She remains on BiPAP. She is able to olamide erate more time off the BiPAP at this time. She states that she is having a lot of anxiety, but othe r than that denies any other complaints. Overnight, no other events were noted. Physical Examination: Vital Signs: At this time are showing temperature of 97, pulse rate of 77, respiratory rate of 24, a nd blood pressure 114/66. General: She appears in no acute distress. HEENT: Atraumatic head. Lungs: Auscultation of lungs revealed bilateral equal air entry with diminished breath sounds. Abdomen: Soft and nontender. Extremities: Showed no evidence of edema. Laboratory Data: Showing sodium of 143, potassium of 3.3, chloride of 110, BUN of 54 and creatinine stable at 1.61. LFTs showing slightly elevated AST. Albumin was 1.9. CBC showing stable hemoglobin , hematocrit, and platelet count of 103. Current Medications: Include Solu-Medrol 500 mg every 12 hours, Lasix 40 mg IV b.i.d., Zoloft, vanco mycin every 36 hours, Lorazepam p.r.n., Ensure, and Lovenox for DVT prophylaxis. Impression: 1.Acute renal failure, likely secondary to underlying glomerulonephritis, concern for ANCA vasculiti s versus lupus nephritis. We are awaiting serologies at this time. She is currently getting pulse d ose steroids. Her C4 complement level is low. The patient will possibly need transfer out for plasm a exchange of if ANCA is positive. 2.Respiratory failure with bilateral pulmonary infiltrates. The patient will also benefit from a br onchoscopy to see if she has any pulmonary hemorrhage that would warrant plasma exchange. 3.Hypertension, currently stable. 4.Anxiety. Continue lorazepam. 5.Anemia secondary to chronic disease. Monitor closely and transfuse as needed. 6.Thrombocytopenia. 7.Hyperglycemia. Continue to monitor closely. Plan: The patient is overall stable. She is nonoliguric. Renal function is stabilizing. Continue high-dose steroids. Await serologies. Consider bronchoscopy. VV/MODL Voice ID: [id number] Report ID: [id number]
[2021-12-28] MEDS: LORAZEPAM 0.5 MG TABLET PO PRN (19:44)
[2021-12-29 05:20] LABS: Albumin 1.9 g/dL (3.4-5.0); Bilirubin Total 1.1 mg/dL (0.2-1.0); C-Reactive Protein 59.6 mg/L (<3.00); Magnesium 2.5 mg/dL (1.8-2.4); Phosphorus 2.6 mg/dL (2.5-4.9); Potassium 3.4 mmol/L (3.5-5.1); Protein, Total 6.4 g/dL (6.4-8.2)
[2021-12-29] MEDS: PANTOPRAZOLE 40MG TABLET PO SCH (05:33)
[2021-12-29] MEDS: FUROSEMIDE 40 MG/4 ML VIAL IV SCH ×2 (08:07→16:58)
[2021-12-29] MEDS: SERTRALINE HCL 50 MG TAB PO SCH (08:07)
[2021-12-29] MEDS: ENSURE ENLIVE 237 ML CAN PO SCH ×2 (08:07→21:20)
[2021-12-29] MEDS: ENOXAPARIN 40 MG/0.4 ML SQ SCH (08:07)
[2021-12-29] MEDS: POTASSIUM CL SA 10 MEQ TAB PO SCH (08:53)
[2021-12-29] MEDS: METHYLPRED NA SUC 500 MG in NA CHLORIDE 0.9% 100 ML IV SCH ×2 (10:01→21:19)
[2021-12-29] MEDS: VANCOMYCIN 1.5 GM in NA CHLORIDE 0.9% 500 ML IVPB SCH (11:00)
--- NOTE | 2021-12-29 11:04 | P.PN ---
Date of Service: 12/29/21 Nephrology note: (S) Pt remains in the ICU on NIPPV/BIPAP, briefly has been on/off HFNC, pt appears comfortable when seen but does acknowledge that breathing can quickly get labored. Discussed results thus far and studies that were still pending and the plan of care with both pt and Dr. Campbell. (O) General: Alert, In no apparent distress currently HEENT: Atraumatic, Normocephalic, EOMI, BIPAP mask present Neck: Supple Respiratory: Mild tachypnea, Crackles/rales Cardiovascular: No edema, Regular rate/rhythm, Normal S1 S2, No gallops Gastrointestinal: Soft and benign, Non-distended, No tenderness Musculoskeletal: No swelling, No contractures, No erythema Integumentary: No rashes, No breakdown Neurological: Normal speech, Normal affect, non focal Laboratory Data (last 24 hrs) Reviewed in the EMR Conclusions/Impression: 1. Abnormal results of kidney function studies. 2. Stage II LIZANDRO 3. Abnormal findings in urine unspecified 4. Microscopic hematuria unspecified 5. Abnormality of albumin 6. Dyspnea unspecified 7. Anemia, microcytic, unspecified 8. Proteinuria, unspecified 9. Iron deficiency -Pt's renal insufficiency on presentation was felt to be multifactorial and recent Meloxicam/NSAID use may have accounted for some superimposed LIZANDRO and automated UA reveals some granular casts which indicates possible ATN. Cr level initially bumped but but pt did also receive contrast with CTA on admission, levels currently are better/stable. However, more concerning was the abnormal findings in urine on admission including microscopic hematuria and pt reports of dark urine for a few weeks, I was immediately concerned about a possible underlying glomerulonephritis/GN process. The ddx for mixed nephritic and or nephrotic syndromes can include post infectious GN, IgA nephropathy, lupus nephropathy, ANCA associated pauci immune GN and other. With respiratory infiltrates and renal impairment, there is the possibility of Jaime's disease, anti-GBM and lupus. Pt will complete pulse steroids, Methylprednisone 1000 mg daily x 3 days this AM, so I will switch to Prednisone at a dose of 1 mg/kg or max 80 mg a day. -Spot urine studies on admission did show proteinuria without microalbuminuria, which could indicate tubular proteinuria or other proteinuria (did check SPEP, FLC as pt did have some protein albumin gap. FLC was not markedly elevated. -Did send off serologic and complement studies, pt does have reduced C4 levels, talked to lab and still awaiting results of LIAM, ANCA, other -Did order renal u/s to eval renal parenchyma and the kidneys do appear echogenic c/w an intrinsic process/injury. -Remained concerned about a renal-pulm syndrome and if ANCA is suspected, pt would benefit from plasmapheresis given her presentation. Unable to do a bronch to confirm DAH given her tenuous resp status and since plasmapheresis not avail here, discussed with Dr. Campbell a potential transfer to the [facility] that service is avail. -Ok to cont gentle diuresis for pulm toilet given some diastolic dysfunction on echo. -Hold off on any ISACC inhibitors at this time. -Avoid nephrotoxins, no NSAIDs Jaron Espinal MD, [facility]
[2021-12-29] MEDS ORDERED: VANCOMYCIN 1.75 GM in NA CHLORIDE 0.9% 500 ML IVPB SCH (12:00)
--- NOTE | 2021-12-29 14:22 | P.PN ---
Subjective Date of Service: 12/29/21 Primary Care Provider: Dr. Cortes Chief Complaint: Diffuse bilateral pneumonia acute renal failure Patient transition from BiPAP to high flow oxygen today. No recorded fever. Physical Examination - Vital Signs Temperature: 97 F Blood Pressure: 141/71 Pulse: 81 Respirations: 26 Pulse Ox (%): 95 Assessment And Plan - Plan Physical Exam: Gen: AOx3, NAD HEENT: normal conjunctiva, sclera anicteric CV: regular rate & rhythm, no edemaAP Pulm: b/l crackles, on high flow oxygen Abd: soft, non-tender, non-distended Neuro: normal speech, moves all extremities Cotton in place vitals reviewed Problem List Sepsis secondary to possible bilateral pneumonia acute hypoxemic respiratiory failure new onset CHF- diastolic (HFpEF) LIZANDRO Microcytic anemia/ ADRIANNA h/o RA unclear etiology, review of CT chest - with atypical infectious appearance Suspect inflammatory process/ARDS. No hemoptysis. Family history of lupus. TTE: moderate diastolic dysfunction continue lasix, repeat CXR: no significant change steroids initiated 125 IV BID solumedrol by pulm on 12/24, increased to 1g daily total on 12/26, decreased to 500 mg every 12. Cotton placed on 12/25 Initiated transfer to tertiary center for further evaluation and management of pulmonary renal syndrome. Autoimmune panel, serum/urine electrophoresis and immunofixation are pending. LIZANDRO 2/2 NSAID usage, received IV contrast for CT in ED; ?lupus nephritis ?ANCA nephrology is following. Hematuria suggest glomerulonephritis. Diuresis per nephrology high dose steroids as above iron def anemia started IV iron per pulm 12/25 h/o RA multiple family members with lupus possible autoimmune etiology - ?lupus VTE: lovenox Code: full
[2021-12-29] MEDS: Levofloxacin 750mg IV 750 MG/150 ML BAG IV SCH (14:31)
[2021-12-29] MEDS: FLUCONAZOLE 100 MG TAB PO SCH (14:31)
[2021-12-29 23:47] LABS: Albumin, (SPE) 2.4 g/dL (3.8-4.8); Alpha-1-Globulins 0.5 g/dL (0.2-0.3); Alpha-2-Globulins 0.9 g/dL (0.5-0.9); Gamma Globulins 2.3 g/dL (0.8-1.7); INTERPRETATION REPORT
[2021-12-30] MEDS: HYDROCODONE/APAP 5/325 MG TAB PO PRN ×2 (01:48→20:48)
[2021-12-30 04:54] LABS: Absolute Lymphocytes (CBC) 0.7 K/uL (0.7-4.9); MCV 78.4 fL (80-100); MPV 8.3 fL (7.6-11.3); RBC Red Blood Cell Count 3.19 M/uL (3.86-4.86)
[2021-12-30 05:07] LABS: Albumin 1.8 g/dL (3.4-5.0); Bilirubin Total 0.9 mg/dL (0.2-1.0); Potassium 3.1 mmol/L (3.5-5.1)
[2021-12-30] MEDS: PANTOPRAZOLE 40MG TABLET PO SCH (05:51)
[2021-12-30] MEDS: FUROSEMIDE 40 MG/4 ML VIAL IV SCH (08:33)
[2021-12-30] MEDS: SERTRALINE HCL 50 MG TAB PO SCH (08:36)
[2021-12-30] MEDS: POTASSIUM CL SA 10 MEQ TAB PO SCH (08:36)
[2021-12-30] MEDS: ENOXAPARIN 40 MG/0.4 ML SQ SCH (08:37)
[2021-12-30] MEDS: ENSURE ENLIVE 237 ML CAN PO SCH ×2 (08:38→20:47)
[2021-12-30] MEDS: METHYLPRED NA SUC 500 MG in NA CHLORIDE 0.9% 100 ML IV SCH (09:00)
[2021-12-30] MEDS ORDERED: POTASSIUM 25 MEQ EFFERV TAB PO ONE (10:06)
--- NOTE | 2021-12-30 11:58 | P.PN ---
Subjective Date of Service: 12/30/21 Primary Care Provider: Dr. Cortes Chief Complaint: Diffuse bilateral pneumonia acute renal failure No major changes from yesterday. Patient still dependent on BiPAP and high flow oxygen. FiO2 weaned down to 50% today. No recorded fever. Physical Examination - Vital Signs Temperature: 97.8 F Blood Pressure: 118/66 Pulse: 77 Respirations: 23 Pulse Ox (%): 63 Assessment And Plan - Plan Physical Exam: Gen: AOx3, NAD HEENT: normal conjunctiva, sclera anicteric CV: regular rate & rhythm, no edemaAP Pulm: b/l crackles, on high flow oxygen Abd: soft, non-tender, non-distended Neuro: normal speech, moves all extremities Cotton in place vitals reviewed Problem List Sepsis secondary to possible bilateral pneumonia acute hypoxemic respiratiory failure new onset CHF- diastolic (HFpEF) LIZANDRO Microcytic anemia/ ADRIANNA h/o RA Sepsis/bilateral pneumonia/ARDS/acute respiratory failure with hypoxia unclear etiology, review of CT chest - with atypical infectious appearance Oxygen weaned down to 50% FiO2 Suspect inflammatory process/ARDS. No hemoptysis. Family history of lupus. TTE: moderate diastolic dysfunction continue lasix, repeat CXR: no significant change steroids initiated 125 IV BID solumedrol by pulm on 12/24, increased to 1g daily total on 12/26, decreased to 500 mg every 12. Cotton placed on 12/25 Initiated transfer to tertiary center for further evaluation and management of pulmonary-renal syndrome. Autoimmune panel: Anti proteinase 3, double-stranded DNA and LIAM are pending. Antimyeloperoxidase is negative, serum/urine electrophoresis-no M spike or gammopathy. Urine immunoglobulin light chains elevated. Low complement C4. Awaiting bed availability for transfer. LIZANDRO 2/2 NSAID usage, received IV contrast for CT in ED; ?lupus nephritis ?ANCA nephrology is following. Hematuria suggest glomerulonephritis. Diuresis per nephrology high dose steroids as above iron def anemia started IV iron per pulm 12/25 h/o RA multiple family members with lupus possible autoimmune etiology - ?lupus VTE: lovenox Code: full
--- NOTE | 2021-12-30 12:10 | P.PN ---
Subjective Date of Service: 12/30/21 Primary Care Provider: Dr. Cortes Chief Complaint: Diffuse bilateral pneumonia acute renal failure Patient is improving able to tolerate lower concentrations of oxygen has mild diarrhea Review of Systems General: Weakness Respiratory: Shortness of Breath Physical Examination - Vital Signs Temperature: 97.8 F Blood Pressure: 118/66 Pulse: 77 Respirations: 23 Pulse Ox (%): 63 - Physical Exam General: Alert, Oriented x3, Mild distress Respiratory: Crackles/rales Cardiovascular: No edema, Regular rate/rhythm Assessment And Plan - Current Problems (Diagnosis) (1) ARDS (adult respiratory distress syndrome) Current Visit: Yes Status: Acute Plan: Patient has ARDS I suspect from autoimmune disease serologies pending renal function improving hemoglobin stable C ANCA and antiglomerular basement membrane is negative Free kappa chains elevated DC vancomycin levofloxacin changed to IV cefepime patient has been changed to p.o. prednisone chest x-ray still shows diffuse bilateral changes continue with Lasix seen by nephrology
--- NOTE | 2021-12-30 12:12 | P.PN ---
Nephrology note: (S) Pt remains in the ICU on NIPPV/BIPAP, but O2 requirements a bit lower and has been transitioned briefly to HFNC at times. Diuresing well. (O) General: Alert, In no apparent distress currently HEENT: Atraumatic, Normocephalic, EOMI, BIPAP mask present Neck: Supple Respiratory: Mild tachypnea, Crackles/rales Cardiovascular: No edema, Regular rate/rhythm, Normal S1 S2, No gallops Gastrointestinal: Soft and benign, Non-distended, No tenderness Musculoskeletal: No swelling, No contractures, No erythema Integumentary: No rashes, No breakdown Neurological: Normal speech, Normal affect, non focal Laboratory Data (last 24 hrs) Reviewed in the EMR Conclusions/Impression: 1. Abnormal results of kidney function studies. 2. Stage II LIZANDRO 3. Abnormal findings in urine unspecified 4. Microscopic hematuria unspecified 5. Abnormality of albumin 6. Dyspnea unspecified 7. Anemia, microcytic, unspecified 8. Proteinuria, unspecified 9. Iron deficiency -Pt's renal insufficiency on presentation was felt to be multifactorial and recent Meloxicam/NSAID use may have accounted for some superimposed LIZANDRO and automated UA reveals some granular casts which indicates possible ATN. Cr level initially bumped but but pt did also receive contrast with CTA on admission, levels currently are better/stable. However, more concerning was the abnormal findings in urine on admission including microscopic hematuria and pt reports of dark urine for a few weeks, I was immediately concerned about a possible underlying glomerulonephritis/GN process. The ddx for mixed nephritic and or nephrotic syndromes can include post infectious GN, IgA nephropathy, lupus nephropathy, ANCA associated pauci immune GN and other. With respiratory infiltrates and renal impairment, there is the possibility of Jaime's disease, anti-GBM and lupus. Anti-GBM and P-ANCA studies have come back neg, LIAM, dsDNA and C-ANCA still pending Pt did complete pulse steroids, Methylprednisone 1000 mg daily x 3 days this AM, so I will switch to Prednisone at a dose of 1 mg/kg or max 60 mg a day. -Spot urine studies on admission did show proteinuria without microalbuminuria, which could indicate tubular proteinuria or other proteinuria (did check SPEP, FLC as pt did have some protein albumin gap. FLC was not markedly elevated and no M spike seen) -Did order renal u/s to eval renal parenchyma and the kidneys do appear echogenic c/w an intrinsic process/injury. -Remained concerned about a renal-pulm syndrome and if C-ANCA is suspected, pt would benefit from plasmapheresis given her presentation. Unable to do a bronch to confirm DAH given her tenuous resp status and since plasmapheresis not avail here, discussed with Dr. Campbell a potential transfer to the larger campus where that service is avail. -Ok to cont gentle diuresis for pulm toilet given some diastolic dysfunction on echo but will lower Lasix dose, will replete K -Hold off on any ISACC inhibitors at this time. -Avoid nephrotoxins, no NSAIDs Jaron Espinal MD, [facility]
[2021-12-30] MEDS: FLUCONAZOLE 100 MG TAB PO SCH (12:31)
[2021-12-30] MEDS: predniSONE 20 MG TAB PO SCH (12:34)
--- NOTE | 2021-12-30 15:31 | PN ---
Date of Progress Note: 12/30/2021 Subjective: She was seen by bedside. Continues to have shortness of breath requiring BiPAP. Review of Systems: She has been having some chest pain on and off for some time, getting worse after the respiratory jaquan lure. There is no nausea, vomiting, or diarrhea. No dysuria, polyuria, or urinary urgency. The cou gh is present and low-grade fever otherwise. All other systems reviewed and they were negative. Physical Examination: Vital Signs: Revealed temperature of 97.8, pulse 77, breathing at 23, blood pressure is 118/66, satu rating 99% on high-flow oxygen. General: Pleasant middle-aged female, no apparent distress. Head and Neck: Pupils are equal, reactive to light. Intact eye movements. No JVD. No cervical lym phadenopathy. Neck is supple. Thyroid is not enlarged. Lungs: Rhonchi bilaterally with a slight increased respiratory effort. Heart: Regular rate and rhythm. No extra sounds. Abdomen: Soft, nontender. Bowel sounds positive. No organomegaly. No masses or hernia. No rigidi ty or rebound. Extremities: No edema, clubbing, or cyanosis. Intact pulses. Skin: No rash. Neurologic: Alert, awake, oriented x3. No acute focal deficits appreciated. Investigations: Her creatinine is 1.37, BUN is 51, potassium 3.1, hemoglobin 8.3, white blood cell c ount is 8.8. Assessment And Recommendations: 1.Acute hypoxic respiratory failure due to pneumonia and acute respiratory distress syndrome picture . The patient is clinically improving. She had a normal ejection fraction on echo with moderate hemant stolic dysfunction. At this point, she will need further cardiac workup once her respiratory failure is resolved. We will plan on ischemia workup as she has been having chest pains right even before. In the interim, she is continued on antibiotics and gentle diuresis. 2.Chronic diastolic heart failure, responding well to diuresis. Carefully monitor BUN, creatinine, and electrolytes. 3.Acute renal failure. This is resolving. We will continue to monitor. 4.Chest pain. This is at the present time likely due to the infectious processes going through; how ever, the patient was having symptoms prior. I will plan for ischemia workup once her condition is m ore stable. /LAURENCE Voice ID: [id number] Report ID: [id number]
[2021-12-30] MEDS ORDERED: FUROSEMIDE 20 MG/ 2ML VIAL IV SCH (17:00)
[2021-12-30] MEDS: CEFEPIME 1 GM in NA CHLORIDE 0.9% 100 ML IV SCH (20:25)
[2021-12-31 05:14] LABS: Potassium 3.4 mmol/L (3.5-5.1)
[2021-12-31] MEDS: PANTOPRAZOLE 40MG TABLET PO SCH (05:55)
--- NOTE | 2021-12-31 07:22 | RAD REPORT ---
EXAM DESCRIPTION: RAD - Chest Single View - 12/31/2021 5:22 am CLINICAL HISTORY: Dyspnea COMPARISON: Chest Single View dated 12/28/2021; Chest Single View dated 12/27/2021; Chest Single View da heather 12/26/2021; Chest Single View dated 12/25/2021hest Single View dated 12/28/2021; Chest Single View kiet ed 12/27/2021; Chest Single View dated 12/26/2021; Chest Single View dated 12/25/2021; Chest For Pe Angio d ated FINDINGS: Lines: None. Lungs: Similar widespread pulmonary opacities. Pleural: No significant pleural effusions or pneumothorax. Cardiac: The heart size is within normal limits. Mediastinum: Within normal limits. Bones: No acute fractures. Other: None IMPRESSION: Widespread bilateral airspace disease without significant interval change that may refle ct edema and/or multifocal pneumonia.
[2021-12-31] MEDS: CEFEPIME 1 GM in NA CHLORIDE 0.9% 100 ML IV SCH ×2 (08:19→21:16)
[2021-12-31] MEDS: ENOXAPARIN 40 MG/0.4 ML SQ SCH (08:19)
[2021-12-31] MEDS: predniSONE 20 MG TAB PO SCH (08:19)
[2021-12-31] MEDS: SERTRALINE HCL 50 MG TAB PO SCH (08:19)
[2021-12-31] MEDS: FUROSEMIDE 20 MG/ 2ML VIAL IV SCH ×2 (08:19→16:31)
[2021-12-31] MEDS: POTASSIUM CL SA 10 MEQ TAB PO SCH (08:19)
[2021-12-31] MEDS: ENSURE ENLIVE 237 ML CAN PO SCH ×2 (08:21→21:00)
[2021-12-31] MEDS ORDERED: NA CHLORIDE 0.9% 500 ML IV ONE (09:30)
--- NOTE | 2021-12-31 12:12 | P.PN ---
Nephrology note: (S) Pt on HFNC, 25L but still has O2 saturations that drop in to the upper 80s when she talks. Also reporting some Rt shoulder pain and LROM. (O) General: Alert, In no apparent distress currently HEENT: Atraumatic, Normocephalic, EOMI, BIPAP mask present Neck: Supple Respiratory: Mild tachypnea, Crackles/rales Cardiovascular: No edema, Regular rate/rhythm, Normal S1 S2, No gallops Gastrointestinal: Soft and benign, Non-distended, No tenderness Musculoskeletal: No swelling, No contractures, No erythema Integumentary: No rashes, No breakdown Neurological: Normal speech, Normal affect, non focal Laboratory Data (last 24 hrs) Reviewed in the EMR Conclusions/Impression: 1. Abnormal results of kidney function studies. 2. Stage II LIZANDRO 3. Abnormal findings in urine unspecified 4. Microscopic hematuria unspecified 5. Abnormality of albumin 6. Dyspnea unspecified 7. Anemia, microcytic, unspecified 8. Proteinuria, unspecified 9. Iron deficiency -Pt's renal insufficiency on presentation was felt to be multifactorial and recent Meloxicam/NSAID use may have accounted for some superimposed LIZANDRO and automated UA reveals some granular casts which indicates possible ATN. Cr level initially bumped but but pt did also receive contrast with CTA on admission, levels currently are better/stable. However, more concerning was the abnormal findings in urine on admission including microscopic hematuria and pt reports of dark urine for a few weeks, I was immediately concerned about a possible underlying glomerulonephritis/GN process. The ddx for mixed nephritic and or nephrotic syndromes can include post infectious GN, IgA nephropathy, lupus nephropathy, ANCA associated pauci immune GN and other. With respiratory infiltrates and renal impairment, there is the possibility of Jaime's disease, anti-GBM and lupus. Anti-GBM and P-ANCA studies have come back neg, LIAM, dsDNA and C-ANCA still pending Pt did complete pulse steroids, Methylprednisone 1000 mg daily x 3 days this AM, so I did switch to Prednisone at a dose of 1 mg/kg or max 60 mg a day. -Spot urine studies on admission did show proteinuria without microalbuminuria, which could indicate tubular proteinuria or other proteinuria (did check SPEP, FLC as pt did have some protein albumin gap. FLC ratio was not markedly elevated and the reason the individual light chains themselves are > ULN is due to reduced CrCl and seperately no M spike seen) -Did order renal u/s to eval renal parenchyma and the kidneys do appear echogenic c/w an intrinsic process/injury. -Remained concerned about a renal-pulm syndrome and if C-ANCA is suspected, pt would benefit from plasmapheresis given her presentation. Unable to do a bronch to confirm DAH given her tenuous resp status and since plasmapheresis not avail here, discussed with Dr. Campbell a potential transfer to the larger campus where that service is avail. Since no bed yet available there and pt's resp status not improved, after discussion with Pulm will go ahead and order IV Cytoxan 1000 mg once as that itself may take a day or so to arrange. -Ok to cont gentle diuresis for pulm toilet given some diastolic dysfunction on echo but did lower Lasix dose, will replete K -Hold off on any ISACC inhibitors at this time. -Avoid nephrotoxins, no NSAIDs Jaron Espinal MD, [facility]
[2021-12-31] MEDS: FLUCONAZOLE 100 MG TAB PO SCH (12:14)
--- NOTE | 2021-12-31 12:35 | P.PN ---
Subjective Date of Service: 12/31/21 Primary Care Provider: Dr. Cortes Chief Complaint: Diffuse bilateral pneumonia acute renal failure Doubly improving still requiring high concentrations of oxygen can now tolerate high flow oxygen at 90% having some diarrhea with Ensure he is less tired Review of Systems General: Weakness Respiratory: Shortness of Breath Physical Examination - Vital Signs Temperature: 97.5 F Blood Pressure: 120/68 Pulse: 84 Respirations: 27 Pulse Ox (%): 91 - Physical Exam General: Alert, In no apparent distress, Moderate distress Respiratory: Crackles/rales Cardiovascular: No edema, Regular rate/rhythm Assessment And Plan - Current Problems (Diagnosis) (1) ARDS (adult respiratory distress syndrome) Current Visit: Yes Status: Acute Plan: Patient has pulmonary renal syndrome agree with low-dose Cytoxan in addition to steroids chest x-ray still shows diffuse ARDS changes vital signs stable renal function improving stable for transfer consider using BiPAP
--- NOTE | 2021-12-31 14:07 | P.PN ---
Subjective Date of Service: 12/31/21 Primary Care Provider: Dr. Cortes Chief Complaint: Diffuse bilateral pneumonia acute renal failure Patient has no new complaint except right upper chest pain. She tolerated FiO2 50% on BiPAP. Chest x-ray today reports no significant change. Physical Examination - Vital Signs Temperature: 97.5 F Blood Pressure: 110/57 Pulse: 94 Respirations: 22 Pulse Ox (%): 90 Assessment And Plan - Plan Physical Exam: Gen: AOx3, NAD HEENT: normal conjunctiva, sclera anicteric CV: regular rate & rhythm, no edemaAP Pulm: b/l crackles, on high flow oxygen Abd: soft, non-tender, non-distended Neuro: normal speech, moves all extremities Cotton in place vitals reviewed Problem List Sepsis secondary to possible bilateral pneumonia acute hypoxemic respiratiory failure new onset CHF- diastolic (HFpEF) LIZANDRO Microcytic anemia/ ADRIANNA h/o RA Sepsis/bilateral pneumonia/ARDS/acute respiratory failure with hypoxia unclear etiology, review of CT chest - with atypical infectious appearance Oxygen weaned down to 50% FiO2 Suspect inflammatory process/ARDS. No hemoptysis. Family history of lupus. TTE: moderate diastolic dysfunction continue lasix, repeat CXR: no significant change steroids initiated 125 IV BID solumedrol by pulm on 12/24, increased to 1g daily total on 12/26, decreased to 500 mg every 12. Now transition to p.o. prednisone. Cotton placed on 12/25 Initiated transfer to tertiary center for further evaluation and management of pulmonary-renal syndrome. Autoimmune panel: Anti proteinase 3, double-stranded DNA and LIAM are pending. Antimyeloperoxidase is negative, serum/urine electrophoresis-no M spike or gammopathy. Urine immunoglobulin light chains elevated. Low complement C4. Continue antibiotics Continue to wean down oxygen. Awaiting bed availability for transfer. LIZANDRO 2/2 NSAID usage, received IV contrast for CT in ED; ?lupus nephritis ?ANCA nephrology is following. Hematuria suggest glomerulonephritis. Diuresis per nephrology On steroid. iron def anemia Received IV iron per pulm 12/25 h/o RA multiple family members with lupus possible autoimmune etiology - ?lupus VTE: lovenox Code: full
--- NOTE | 2021-12-31 21:33 | PN ---
Date of Progress Note: 12/31/2021 Subjective: Seen by bedside, appears to be doing better. Still has significant shortness of breath that requires BiPAP. Review of Systems: No active chest pain. Has shortness of breath and cough. No nausea, vomiting, or diarrhea. All oth er systems reviewed are negative. She is generally very weak. Physical Examination: Vital Signs: Reviewed. Her oxygen requirements are better. Head and Neck: Pupils are equal, reactive to light. Intact eye movements. No JVD. No cervical lym phadenopathy. Neck supple. Thyroid is not enlarged. Lungs: Rhonchi bilaterally. No accessory muscle use or muscle retraction. Heart: Regular rate and rhythm. No extra sounds. Abdomen: Soft, nontender. Bowel sounds positive. No organomegaly. No masses or hernia. No rigidi ty or rebound. Extremities: No clubbing, cyanosis. Intact pulses. Skin: No rashes. Neurologic: Alert, awake, oriented x3. No acute focal deficits appreciated. Investigations: Labs reviewed. Assessment And Recommendation: 1.Acute hypoxic respiratory failure due to pneumonia and probably a component of diastolic heart jaquan lure. She appears to be euvolemic to me. Continue current regimen and monitor BUN, creatinine, and electrolytes. 2.Chronic diastolic heart failure, appears to be euvolemic. Continue current management. 3.Acute renal failure and this has resolved. BUN and creatinine are normal today. 4.Chest pain, which is likely related to the illness that she has. A workup as an outpatient will b e recommended. No further cardiac workup as an inpatient at this point. We will monitor the patient with you. /LAURENCE Voice ID: [id number] Report ID: [id number]
[2022-01-01 05:23] LABS: Hematocrit 28.2 % (36.0-45.0); Lymphocytes % 10.5 % (15.3-44.8); MCV 81.9 fL (80-100); MPV 8.5 fL (7.6-11.3); RBC Red Blood Cell Count 3.44 M/uL (3.86-4.86)
[2022-01-01 05:44] LABS: Albumin 1.8 g/dL (3.4-5.0); Bilirubin Total 0.8 mg/dL (0.2-1.0); Potassium 3.7 mmol/L (3.5-5.1); Protein, Total 6.2 g/dL (6.4-8.2)
[2022-01-01] MEDS: PANTOPRAZOLE 40MG TABLET PO SCH (07:00)
[2022-01-01] MEDS: CEFEPIME 1 GM in NA CHLORIDE 0.9% 100 ML IV SCH ×2 (08:54→21:06)
[2022-01-01] MEDS: ENOXAPARIN 40 MG/0.4 ML SQ SCH (08:54)
[2022-01-01] MEDS: FUROSEMIDE 20 MG/ 2ML VIAL IV SCH ×2 (08:54→16:57)
[2022-01-01] MEDS: POTASSIUM CL SA 10 MEQ TAB PO SCH (08:55)
[2022-01-01] MEDS: predniSONE 20 MG TAB PO SCH (08:55)
[2022-01-01] MEDS: SERTRALINE HCL 50 MG TAB PO SCH (08:55)
[2022-01-01] MEDS: ENSURE ENLIVE 237 ML CAN PO SCH ×2 (08:55→21:00)
[2022-01-01 09:13] LABS: Anisocytosis 2+; Blood Morphology Comment NOTED (NOT SEEN); Macrocytosis 1+; Platelet Estimate DECR
[2022-01-01] MEDS ORDERED: ONDANSETRON 4 MG/2 ML VIAL IV ONE (09:30)
[2022-01-01] MEDS ORDERED: dexAMETHasone 4 MG/ML VIAL IV ONE (09:30)
[2022-01-01] MEDS ORDERED: NA CHLORIDE 0.9% 500 ML ONE (09:44)
[2022-01-01] MEDS ORDERED: NA CHLORIDE 0.9% IV ONE (10:00)
[2022-01-01] MEDS ORDERED: CYCLOPHOSPHAMIDE IV ONE (10:00)
--- NOTE | 2022-01-01 11:10 | P.PN ---
Nephrology note: (S) Pt remains on BIPAP at night, HFNC during the day, 25L, still reports getting winded at times. Had proceeded with IV Cytoxan order empirically based on discussion with the primary team and Pulmonology who were in agreement given the continued suspicion for an autoimmune disorder, renal-pulmonary syndrome. Pt seen tolerating infusion. Final serologies have now come back showing negative ds-DNA and negative C-ANCA. Additional studies ordered. (O) General: Alert, In no apparent distress currently HEENT: Atraumatic, Normocephalic, EOMI, BIPAP mask present Neck: Supple Respiratory: Mild tachypnea, Crackles/rales Cardiovascular: No edema, Regular rate/rhythm, Normal S1 S2, No gallops Gastrointestinal: Soft and benign, Non-distended, No tenderness Musculoskeletal: No swelling, No contractures, No erythema Integumentary: No rashes, No breakdown Neurological: Normal speech, Normal affect, non focal Laboratory Data (last 24 hrs) Reviewed in the EMR Conclusions/Impression: 1. Abnormal results of kidney function studies. 2. Stage II LIZANDRO 3. Abnormal findings in urine unspecified 4. Microscopic hematuria unspecified 5. Abnormality of albumin 6. Dyspnea unspecified 7. Anemia, microcytic, unspecified 8. Proteinuria, unspecified 9. Iron deficiency -Pt's renal insufficiency on presentation was felt to be multifactorial and recent Meloxicam/NSAID use may have accounted for some superimposed LIZANDRO and automated UA reveals some granular casts which indicates possible ATN. Cr level initially bumped but but pt did also receive contrast with CTA on admission, levels currently are better/stable. However, more concerning was the abnormal findings in urine on admission includi ng microscopic hematuria and pt reports of dark urine for a few weeks, I was immediately concerned about a possible underlying glomerulonephritis/GN process. The ddx for mixed nephritic and or nephrotic syndromes can include post infectious GN, IgA nephropathy, lupus nephropathy, ANCA associated pauci immune GN and other. With respiratory infiltrates and renal impairment, there is the possibility of Jaime's disease, anti-GBM and lupus. Anti-GBM and P and C-ANCA studies have come back neg, dsDNA also negative. There are a smaller percentages of cases where GPA can be present with negative ANCA studies. Likewise SLE can be present with negative dsDNA. LIAM pending. Will order additional studies including SSA/SSB, anti-phospholipid. Pt did complete pulse steroids, Methylprednisone 1000 mg daily x 3 days this AM, so I did switch to Prednisone at a dose of 1 mg/kg or max 60 mg a day. -Spot urine studies on admission did show proteinuria without microalbuminuria, which could indicate tubular proteinuria or other proteinuria (did check SPEP, FLC as pt did have some protein albumin gap. FLC ratio was not markedly elevated and the reason the individual light chains themselves are > ULN is due to reduced CrCl and seperately no M spike seen). Will nonetheless investigate further with a 24h UPEP and AYSHA. -Did order renal u/s to eval renal parenchyma and the kidneys do appear echogenic c/w an intrinsic process/injury. Given the negative serologies, may have to pursue tissue biopsy/renal biopsy so will discuss with radiology and see if feasible here. -Remained concerned about a renal-pulm syndrome and since C-ANCA initially suspected, pt was thought to benefit from plasmapheresis given her presentation. Unable to do a bronch to confirm DAH given her tenuous resp status and since plasmapheresis not avail here, discussed with Dr. Campbell a potential transfer to the [facility] where that service is avail. Since no bed yet available there and pt's resp status not improved, after discussion with Pulm yesterday, I did go ahead and order IV Cytoxan 1000 mg once which she is receiving today and tolerating. Will follow blood counts closely post dose. -Ok to cont gentle diuresis for pulm toilet given some diastolic dysfunction on echo but did lower Lasix dose, will replete K -Hold off on any ISACC inhibitors at this time. -Avoid nephrotoxins, no NSAIDs Jaron Espinal MD, [facility]
--- NOTE | 2022-01-01 11:44 | P.PN ---
Subjective Date of Service: 01/01/22 Primary Care Provider: Dr. Cortes Chief Complaint: Diffuse bilateral pneumonia acute renal failure Patient she feels about the same compared to yesterday. No change in FiO2 requirement. Still on 50% FiO2 on the BiPAP and 90% FiO2 on high flow oxygen.. Physical Examination - Vital Signs Temperature: 96.6 F Blood Pressure: 129/67 Pulse: 79 Respirations: 18 Pulse Ox (%): 96 Assessment And Plan - Plan Physical Exam: Gen: AOx3, NAD HEENT: normal conjunctiva, sclera anicteric CV: regular rate & rhythm, no edemaAP Pulm: b/l crackles=. Abd: soft, non-tender, non-distended Neuro: normal speech, moves all extremities Cotton in place vitals reviewed Problem List Sepsis secondary to possible bilateral pneumonia acute hypoxemic respiratiory failure new onset CHF- diastolic (HFpEF) LIZANDRO Microcytic anemia/ ADRIANNA h/o RA Sepsis/bilateral pneumonia/ARDS/acute respiratory failure with hypoxia unclear etiology, review of CT chest - with atypical appearance Oxygen weaned down to 50% FiO2 Suspect inflammatory process/ARDS. No hemoptysis. Family history of lupus. TTE: moderate diastolic dysfunction On lasix, repeat CXR: no significant change steroids initiated 125 IV BID solumedrol by pulm on 12/24, increased to 1g daily total on 12/26, decreased to 500 mg every 12. Now transition to p.o. prednisone. Cotton placed on 12/25 Initiated transfer to tertiary center for further evaluation and management of pulmonary-renal syndrome. Autoimmune panel: Anti proteinase 3, double-stranded DNA, Antimyeloperoxidase are negative, serum/urine electrophoresis-no M spike or gammopathy. Urine immunoglobulin light chains elevated-unclear significance. Low complement C4. Patient given a dose of cyclophosphamide monitor response to treatment Continue antibiotics Wean down oxygen. Monitor BMP and CBC Awaiting bed availability for transfer. LIZANDRO 2/2 NSAID usage, received IV contrast for CT in ED; ?lupus nephritis ?ANCA nephrology is following. Hematuria suggest glomerulonephritis. Diuresis per nephrology On steroid. iron def anemia Received IV iron per pulm 12/25 h/o RA multiple family members with lupus VTE: lovenox Code: full
[2022-01-01] MEDS: FLUCONAZOLE 100 MG TAB PO SCH (12:37)
[2022-01-01 15:38] LABS: Specific Gravity 1.015 (1.005-1.030); Urine Bacteria <20 /HPF (<20); Urine Bilirubin NEGATIVE (Negative); Urine Blood 3+ (OVER) (Negative); Urine Clarity Clear (Clear); Urine Color Light-Yellow (Yellow); Urine Glucose NEGATIVE (Negative); Urine Mucus 1+ /HPF (None Seen); Urine Protein 1+ (Negative); Urine RBC >50 /HPF (None Seen); Urine Urobilinogen Normal (Normal); Urine Yeast with Hyphae Trace /HPF (None Seen); Urine pH 5.5 (5.0-7.0)
[2022-01-01] MEDS: HYDROCODONE/APAP 5/325 MG TAB PO PRN (21:07)
[2022-01-02 05:20] LABS: Absolute Lymphocytes (CBC) 0.7 K/uL (0.7-4.9); Hematocrit 27.2 % (36.0-45.0); Lymphocytes % 9.6 % (15.3-44.8); MCV 81.1 fL (80-100); MPV 8.6 fL (7.6-11.3); RBC Red Blood Cell Count 3.35 M/uL (3.86-4.86)
[2022-01-02 05:46] LABS: Potassium 4.4 mmol/L (3.5-5.1)
[2022-01-02] MEDS: PANTOPRAZOLE 40MG TABLET PO SCH (06:16)
[2022-01-02] MEDS: FUROSEMIDE 20 MG/ 2ML VIAL IV SCH ×2 (08:14→16:55)
[2022-01-02] MEDS: CEFEPIME 1 GM in NA CHLORIDE 0.9% 100 ML IV SCH ×2 (08:14→20:30)
[2022-01-02] MEDS: POTASSIUM CL SA 10 MEQ TAB PO SCH (08:15)
[2022-01-02] MEDS: predniSONE 20 MG TAB PO SCH (08:15)
[2022-01-02] MEDS: ENOXAPARIN 40 MG/0.4 ML SQ SCH (08:15)
[2022-01-02] MEDS: SERTRALINE HCL 50 MG TAB PO SCH (08:15)
[2022-01-02] MEDS: ENSURE ENLIVE 237 ML CAN PO SCH ×2 (08:16→20:30)
--- NOTE | 2022-01-02 09:38 | P.PN ---
Subjective Date of Service: 01/02/22 Primary Care Provider: Dr. Cortes Chief Complaint: Diffuse bilateral pneumonia acute renal failure Patient is improving still hypoxic on 75% FiO2 high flow planing of right-sided pleuritic chest pain uses BiPAP at night and feeling weak and tired Review of Systems General: Weakness Respiratory: Shortness of Breath Cardiovascular: Chest Pain Physical Examination - Vital Signs Temperature: 97.7 F Blood Pressure: 122/57 Pulse: 73 Respirations: 15 Pulse Ox (%): 95 - Physical Exam General: Alert, Oriented x3, Mild distress Respiratory: Clear to auscultation bilaterally, Diminished Cardiovascular: No edema, Regular rate/rhythm, Normal S1 S2 Assessment And Plan - Current Problems (Diagnosis) (1) ARDS (adult respiratory distress syndrome) Current Visit: Yes Status: Acute Plan: Patient admitted with pulmonary renal syndrome on steroids and Cytoxan renal function has improved significantly white count is normal vital signs stable we will reorder chest x-ray patient's had cyclophosphamide planing of right-sided chest pain p-ANCA c-ANCA both negative patient is on Lasix
--- NOTE | 2022-01-02 12:56 | P.PN ---
Subjective Date of Service: 01/02/22 Primary Care Provider: Dr. Cortes Chief Complaint: Diffuse bilateral pneumonia acute renal failure Patient states she feels a bit better today. FiO2 has trended down a bit. She is now tolerating 75% on high flow oxygen. Physical Examination - Vital Signs Temperature: 97.7 F Blood Pressure: 131/66 Pulse: 87 Respirations: 23 Pulse Ox (%): 94 Assessment And Plan - Plan Physical Exam: Gen: AOx3, NAD HEENT: normal conjunctiva, sclera anicteric CV: regular rate & rhythm, no edemaAP Pulm: b/l crackles=. Abd: soft, non-tender, non-distended Neuro: normal speech, moves all extremities Cotton in place vitals reviewed Problem List Sepsis secondary to possible bilateral pneumonia acute hypoxemic respiratiory failure new onset CHF- diastolic (HFpEF) LIZANDRO Microcytic anemia/ ADRIANNA h/o RA Sepsis/bilateral pneumonia/ARDS/acute respiratory failure with hypoxia unclear etiology, review of CT chest - with atypical appearance Oxygen weaned down to 50% FiO2 Suspect inflammatory process/ARDS. No hemoptysis. Family history of lupus. TTE: moderate diastolic dysfunction On lasix, repeat CXR: no significant change steroids initiated 125 IV BID solumedrol by pulm on 12/24, increased to 1g daily total on 12/26, decreased to 500 mg every 12. Now transition to p.o. prednisone. Cotton placed on 12/25 Initiated transfer to tertiary center for further evaluation and management of pulmonary-renal syndrome. Autoimmune panel: Anti proteinase 3, double-stranded DNA, Antimyeloperoxidase are negative, serum/urine electrophoresis-no M spike or gammopathy. Urine immunoglobulin light chains elevated-unclear significance. Low complement C4. Patient given a dose of cyclophosphamide. Respiratory status slightly improved from yesterday. Continue to monitor response to treatment. Continue antibiotics Continue to wean oxygen as tolerated. Monitor BMP and CBC Awaiting bed availability for transfer. LIZANDRO 2/2 NSAID usage, received IV contrast for CT in ED; ?lupus nephritis ?[facility] nephrology is following. Hematuria suggest glomerulonephritis. Diuresis per nephrology On steroid. Renal function is improving slowly. iron def anemia Received IV iron per pulm 12/25 h/o RA multiple family members with lupus On prednisone. Patient also given a dose of cyclophosphamide. Monitor CBC. VTE: lovenox Code: full
[2022-01-02] MEDS: FLUCONAZOLE 100 MG TAB PO SCH (13:11)
--- NOTE | 2022-01-02 19:43 | PN ---
Date of Progress Note: 01/02/2022 Subjective: The patient is seen at bedside. The patient remained in ICU and remains on high-flow ox ygen. The patient did receive her first dose of Cytoxan yesterday. She remains on high-dose steroid s at this time. She states that she still has some dyspnea when speaking. Objective: Vital Signs: Blood pressure is 125/65, pulse 83, afebrile. Input and output; 1600 in, 2 100 out. General: No acute distress. Heart: Regular rate and rhythm. No murmurs, rubs, gallops. Lungs: Grossly clear. Abdomen: Soft, nontender, nondistended. Extremities: Trace edema. Laboratory Data: CBC; hemoglobin 9, hematocrit 27.2, platelet count is 60,000. Serum chemistry; sod ium 136, potassium 4.4, chloride 102, CO2 32, BUN and creatinine 40/1.22, glucose 237, calcium 7.41, AST 100, ALT 96, alkaline phosphatase 395, bilirubin 0.8, albumin is 1.8. UA from the ; 3+ blood, over 50 RBCs, few yeast, 1+ protein. Protein creatinine ratio from December 24 is 1.22 g. Immunology data: The patient's complement levels noted. C3 of 125, C4 of 13. [place]-lambda ratio is elevated at 1.69. LIAM is pending. Anti-PR3 and MPO antibodies are less than 1. are pen ding. Double-stranded DNA is 1. Anti-GBM less than 1. Impression: 1.Acute kidney injury of unclear etiology, possible autoimmune component. 2.Chronic lifelong anemia. 3.Proteinuria. 4.Elevated kappa-lambda ratio. 5.Possible nephrotic syndrome. 6.Acute respiratory failure. Plan: The patient to receive Cytoxan, we will continue on full-dose steroids. The patient is on PPI for steroid ulcer prophylaxis. The patient will benefit from vitamin D supplementation daily for [place] and the patient would also require PCP prophylaxis once determined to remain on full dose s teroids. In terms of the patient's etiology of renal dysfunction and pulmonary failure, the patient would bene fit from renal biopsy; however, the patient would need to be more stable from a Respiratory standpoin t before that is undertaken. The patient does have elevated kappa-lambda ratio, although slight may explain the discrepancy betwee n microalbumin to creatinine ratio as compared to the protein creatinine ratio. The patient has had lifelong anemia, states that her sisters have lupus and anemia as well. The patient would benefit at some point from Hematology input possible bone marrow biopsy. Continue followup all prior autoimmune serology studies. Continue immunosuppression. Continue Respi ratory followup for acute respiratory failure and we will continue to follow. BE Voice ID: [id number] Report ID: [id number]
[2022-01-03 05:23] LABS: Absolute Lymphocytes (CBC) 0.7 K/uL (0.7-4.9); Hematocrit 27.1 % (36.0-45.0); MCV 81.1 fL (80-100); MPV 8.3 fL (7.6-11.3); RBC Red Blood Cell Count 3.34 M/uL (3.86-4.86)
[2022-01-03] MEDS: PANTOPRAZOLE 40MG TABLET PO SCH (06:25)
[2022-01-03] MEDS: FUROSEMIDE 20 MG/ 2ML VIAL IV SCH ×2 (08:38→17:21)
[2022-01-03] MEDS: CEFEPIME 1 GM in NA CHLORIDE 0.9% 100 ML IV SCH ×2 (08:38→21:38)
[2022-01-03] MEDS: POTASSIUM CL SA 10 MEQ TAB PO SCH (08:39)
[2022-01-03] MEDS: SERTRALINE HCL 50 MG TAB PO SCH (08:39)
--- NOTE | 2022-01-03 08:39 | RAD REPORT ---
EXAM DESCRIPTION: RAD - Chest Single View - 01/03/2022 8:31 am CLINICAL HISTORY: Pneumonia Chest pain. COMPARISON: Chest Single View dated 12/31/2021; Chest Single View dated 12/28/2021; Chest Single View da heather 12/27/2021; Chest Single View dated 12/26/2021 FINDINGS: Portable technique limits examination quality. Moderate bilateral pulmonary opacities are identified. These overall appear essentially unchanged whe n accounting differences inspiration level. The heart is mildly prominent. No displaced fractures. IMPRESSION: Stable chest since 12/31/2021 study.
[2022-01-03] MEDS: ENOXAPARIN 40 MG/0.4 ML SQ SCH (08:40)
[2022-01-03] MEDS: predniSONE 20 MG TAB PO SCH (08:41)
[2022-01-03] MEDS: ENSURE ENLIVE 237 ML CAN PO SCH ×2 (08:42→21:40)
[2022-01-03] MEDS: FLUCONAZOLE 100 MG TAB PO SCH (12:48)
--- NOTE | 2022-01-03 13:05 | P.PN ---
Subjective Date of Service: 01/03/22 Primary Care Provider: Dr. Cortes Chief Complaint: Diffuse bilateral pneumonia acute renal failure No major changes from yesterday. She is tolerating 70% high flow oxygen. Platelet count trended down more. Physical Examination - Vital Signs Temperature: 97.6 F Blood Pressure: 113/71 Pulse: 91 Respirations: 15 Pulse Ox (%): 95 Assessment And Plan - Plan Physical Exam: Gen: AOx3, NAD HEENT: normal conjunctiva, sclera anicteric CV: regular rate & rhythm, no edemaAP Pulm: b/l crackles=. Abd: soft, non-tender, non-distended Neuro: normal speech, moves all extremities Cotton in place vitals reviewed Problem List Sepsis secondary to possible bilateral pneumonia acute hypoxemic respiratiory failure new onset CHF- diastolic (HFpEF) LIZANDRO Microcytic anemia/ ADRIANNA h/o RA Sepsis/bilateral pneumonia/ARDS/acute respiratory failure with hypoxia unclear etiology, review of CT chest - with atypical appearance Oxygen weaned down to 50% FiO2 Suspect inflammatory process/ARDS. No hemoptysis. Family history of lupus. TTE: moderate diastolic dysfunction On lasix, serial CXR: no significant change steroids initiated 125 IV BID solumedrol by pulm on 12/24, increased to 1g daily total on 12/26, decreased to 500 mg every 12. Now transition to p.o. prednisone. Cotton placed on 12/25 Initiated transfer to tertiary center for further evaluation and management of pulmonary-renal syndrome. Autoimmune panel: Anti proteinase 3, double-stranded DNA, Antimyeloperoxidase are negative, serum/urine electrophoresis-no M spike or gammopathy. Urine immunoglobulin light chains elevated-unclear significance. Low complement C4. Patient given a dose of cyclophosphamide. Respiratory status slightly improved from yesterday. Continue to monitor response to treatment. Continue antibiotics Continue to wean oxygen as tolerated. Monitor BMP and CBC Awaiting bed availability for transfer. LIZANDRO 2/2 NSAID usage, received IV contrast for CT in ED; ?lupus nephritis ?[facility] nephrology is following. Hematuria suggest glomerulonephritis. Diuresis per nephrology On steroid. Renal function is improving slowly. iron def anemia Received IV iron per pulm 12/25 h/o RA multiple family members with lupus On prednisone. Patient also given a dose of cyclophosphamide. Monitor CBC. Thrombocytopenia Platelet count trended down by 50%. Hold all anticoagulation including Lovenox for DVT prophylaxis VTE: SCD. Code: full
[2022-01-03 16:25] LABS: Bilirubin Total 0.9 mg/dL (0.2-1.0); Potassium 5.2 mmol/L (3.5-5.1); Protein, Total 6.4 g/dL (6.4-8.2)
--- NOTE | 2022-01-03 18:03 | PN ---
Date of Progress Note: 01/03/2022 Subjective: The patient is seen at the bedside. No overnight events reported. The patient remains on high-flow, now at 80%. She was complaining of some mild pleuritic chest pain. Objective: Vital Signs: Blood pressure is 113/71, pulse 91, afebrile. Input and output; 1700 in, 9 75 out. General: No acute distress. Heart: Regular rate and rhythm. No murmurs, rubs, or gallops. Lungs: Grossly clear to auscultation. Abdomen: Soft, nontender, nondistended. Extremities: 1+ edema of the lower extremities. Laboratory Data: Renal function and hepatic panel not drawn today. CBC; hemoglobin 8.9, hematocrit 27.1, platelet count 54,000. Urine studies, 24-hour urine electrophoresis has been completed; popeye wilburn, it is in process for results. Current Medications: Reviewed. Impression: 1.Acute kidney injury of unclear etiology, possible autoimmune versus monoclonal. 2.Acute respiratory failure. 3.Bilateral pulmonary infiltrates. 4.Anemia. 5.Thrombocytopenia. 6.Proteinuria. Plan: Labs have been ordered for today to assess renal function. Liver panel has also been added wi th concurrent cyclophosphamide use. Avoid NSAIDs and iodinated contrast. Continue prednisone 60 mg daily. Monitor for also sequela of therapeutic steroid use. Continue Pulmonary followup. Consideration if bronchoscopy will be of any benefit. We will defer to Pulmonary in that regard. We will continue to follow up 24-hour urine collection. Followup urine Bence-Vargas assay. We will c chu to follow. /LAURENCE Voice ID: [id number] Report ID: [id number]
[2022-01-04 05:13] LABS: Absolute Lymphocytes (CBC) 0.6 K/uL (0.7-4.9); Hematocrit 26.8 % (36.0-45.0); Lymphocytes % 7.9 % (15.3-44.8); MCV 82.8 fL (80-100); RBC Red Blood Cell Count 3.24 M/uL (3.86-4.86)
[2022-01-04 05:29] LABS: Magnesium 2.4 mg/dL (1.8-2.4); Phosphorus 2.2 mg/dL (2.5-4.9); Potassium 5.1 mmol/L (3.5-5.1)
[2022-01-04] MEDS: PANTOPRAZOLE 40MG TABLET PO SCH (06:19)
[2022-01-04] MEDS: CEFEPIME 1 GM in NA CHLORIDE 0.9% 100 ML IV SCH ×2 (08:59→20:22)
[2022-01-04] MEDS: predniSONE 20 MG TAB PO SCH (08:59)
[2022-01-04] MEDS: POTASSIUM CL SA 10 MEQ TAB PO SCH (08:59)
[2022-01-04] MEDS: FUROSEMIDE 20 MG/ 2ML VIAL IV SCH ×2 (09:00→16:23)
[2022-01-04] MEDS: SERTRALINE HCL 50 MG TAB PO SCH (09:00)
[2022-01-04] MEDS: ENSURE ENLIVE 237 ML CAN PO SCH ×2 (09:00→20:22)
[2022-01-04] MEDS: FLUCONAZOLE 100 MG TAB PO SCH (11:53)
[2022-01-04] MEDS ORDERED: LACTULOSE 20 GM/30 ML UCUP PO ONE (12:00)
--- NOTE | 2022-01-04 12:11 | P.PN ---
Subjective Date of Service: 01/04/22 Primary Care Provider: Dr. Cortes Chief Complaint: Diffuse bilateral pneumonia acute renal failure Patient is improving still weak oxygen requirements are declining thrombocytopenic from cyclophosphamide Review of Systems General: Weakness Respiratory: Shortness of Breath Physical Examination - Vital Signs Temperature: 96.8 F Blood Pressure: 98/58 Pulse: 103 Respirations: 28 Pulse Ox (%): 88 - Physical Exam General: Alert, Oriented x3, Mild distress Respiratory: Crackles/rales Cardiovascular: No edema, Regular rate/rhythm Assessment And Plan - Current Problems (Diagnosis) (1) ARDS (adult respiratory distress syndrome) Current Visit: Yes Status: Acute Plan: Patient admitted with ARDS etiology unknown 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
--- NOTE | 2022-01-04 13:10 | P.PN ---
Subjective Date of Service: 01/04/22 Primary Care Provider: Dr. Cortes Chief Complaint: Diffuse bilateral pneumonia acute renal failure Patient is currently on 85% FiO2 on high flow oxygen, slight increase in requirement from yesterday but patient states she feels clinically better. Physical Examination - Vital Signs Temperature: 96.8 F Blood Pressure: 98/58 Pulse: 103 Respirations: 28 Pulse Ox (%): 88 Assessment And Plan - Plan Physical Exam: Gen: AOx3, NAD HEENT: normal conjunctiva, sclera anicteric CV: regular rate & rhythm, no edema Pulm: b/l crackles. Adequate breath sounds bilaterally Abd: soft, non-tender, non-distended Neuro: normal speech, moves all extremities Cotton in place vitals reviewed Problem List Sepsis secondary to possible bilateral pneumonia acute hypoxemic respiratiory failure new onset CHF- diastolic (HFpEF) LIZANDRO Microcytic anemia/ ADRIANNA h/o RA Sepsis/bilateral pneumonia/ARDS/acute respiratory failure with hypoxia unclear etiology, review of CT chest - with atypical appearance Oxygen weaned down to 50% FiO2 Suspect inflammatory process/ARDS. No hemoptysis. Family history of lupus. TTE: moderate diastolic dysfunction On lasix, serial CXR: no significant change steroids initiated 125 IV BID solumedrol by pulm on 12/24, increased to 1g daily total on 12/26, decreased to 500 mg every 12. Now transition to p.o. prednisone. Cotton placed on 12/25 Initiated transfer to tertiary center for further evaluation and management of pulmonary-renal syndrome. Autoimmune panel: Anti proteinase 3, double-stranded DNA, Antimyeloperoxidase are negative, serum/urine electrophoresis-no M spike or gammopathy. Urine immunoglobulin light chains elevated-unclear significance. Low complement C4. Patient given a dose of cyclophosphamide. Respiratory status slightly improved from yesterday. Continue to monitor response to treatment. Continue antibiotics Continue to wean oxygen as tolerated. Monitor BMP and CBC. Patient will need kidney biopsy for tissue diagnosis. Awaiting bed availability for transfer. LIZANDRO 2/2 NSAID usage, received IV contrast for CT in ED; ?lupus nephritis ?[facility] nephrology is following. Hematuria suggest glomerulonephritis. Diuresis per nephrology On steroid. LIZANDRO now resolved. iron def anemia Received IV iron per pulm 12/25 h/o RA multiple family members with lupus On prednisone. Patient also given a dose of cyclophosphamide. Monitor CBC. Thrombocytopenia Platelet count trended down by 50%. Hold all anticoagulation including Lovenox for DVT prophylaxis. Hyperglycemia Likely steroid-induced Check hemoglobin A1c Insulin sliding scale. VTE: SCD. Code: full
[2022-01-04] MEDS ORDERED: GLUCAGON 1 MG/VIAL IM PRN (13:14)
[2022-01-04] MEDS ORDERED: D50W 25 GM/50 ML SYRINGE IV PRN (13:14)
[2022-01-04] MEDS ORDERED: DEXTROSE 10%-WATER 125 ML IV PRN (13:17)
[2022-01-04] MEDS: SMZ./TMP. 800/160 MG TABLET PO SCH (13:24)
[2022-01-04] MEDS: INSULIN -REGULAR HUMAN 50 UNIT/0.5 ML ML SQ SCH ×2 (16:24→20:22)
[2022-01-04] MEDS: Oxycodone HCl/Acetaminophen 1 TAB TAB PO PRN (20:21)
--- NOTE | 2022-01-04 21:43 | P.PN ---
Date of Service: 01/04/22 Vital Signs Temp Pulse Resp BP Pulse Ox 97.1 F 84 20 109/54 L 94 01/04/22 20:00 01/04/22 20:00 01/04/22 20:21 01/04/22 20:00 01/04/22 20:21 Medications Fluconazole (Fluconazole 100 Mg Tab) 200 mg PO 1300 [facility]; Protocol Last Admin: 01/04/22 11:53 Dose: 200 mg Furosemide (Furosemide 20 Mg/ 2ml Vial) 20 mg IV BIDL [facility] Last Admin: 01/04/22 16:23 Dose: 20 mg Glucagon (Glucagon 1 Mg/Vial) 1 mg IM 1X PRN PRN Reason: HYPOGLYCEMIA Cefepime HCl 1 gm/ Sodium (Chloride) 100 mls @ 200 mls/hr IV Q12HR [facility]; Protocol Last Admin: 01/04/22 20:22 Dose: 100 mls Dextrose (D10w 500 Ml Ivpb) 125 mls @ 0 mls/hr IV PRN PRN; Protocol PRN Reason: HYPOGLYCEMIA Insulin Human Regular (Insulin -Regular Human 50 Unit/0.5 Ml Ml) 0 unit SQ ACHS [facility]; Protocol Last Admin: 01/04/22 20:22 Dose: 9 unit Nutritional Formula (Ensure Enlive 237 Ml Can) 237 ml PO BID [facility] Last Admin: 01/04/22 20:22 Dose: 237 ml Ondansetron HCl (Ondansetron 4 Mg/2 Ml Vial) 4 mg IV Q6HP PRN PRN Reason: NAUSEA / VOMITING Oxycodone/Acetaminophen (Oxycodone Hcl/Acetaminophen 1 Tab Tab) 1 tab PO Q4H PRN PRN Reason: Pain scale 5-7 (Moderate) Last Admin: 01/04/22 20:21 Dose: 1 tab Pantoprazole S[facility] ([facility]) [facility] Last Admin: 01/04/22 06:19 Dose: 40 mg Prednisone (Prednisone 20 Mg Tab) 60 mg PO DAILY [facility] Last Admin: 01/04/22 08:59 Dose: 60 mg Sertraline HCl (Sertraline Hcl 50 Mg Tab) 50 mg PO DAILY [facility] Last Admin: 01/04/22 09:00 Dose: 50 mg Sodium Chloride (Flush Normal Saline 10 Ml) 10 ml IV BID [facility] Last Admin: 01/04/22 20:22 Dose: 10 ml Trimethoprim/Sulfamethoxazole (Smz./Tmp. 800/160 Mg Tablet) 1 tab PO MoWeFr [facility] Last Admin: 01/04/22 13:24 Dose: 1 tab Microbiology Results 12/23/21 20:03 Clean Catch Urine [place] Count - Final <10,000 CFU/ML. 12/23/21 20:03 Clean Catch Urine - Final MIXED TONNY. 12/23/21 19:40 Nasopharnyx Influenza Type A Antigen Screen - Final 12/23/21 19:40 Nasopharnyx Influenza Type B Antigen Screen - Final Assessment/ Plan: Nephrology Dyspnea worse with activity No chest pain +BM No acute events overnight Vitals, medications, blood work and imaging reviewed in the chart. NAD. NCAT. MMM. Neck supple. Normal respiratory effort. RRR. Abd ND. No C/C/E. No rash. AAO. Normal speech. Cotton dark LIZANDRO of unclear etiology, improving CKD III with proteinuria Hematuria -No NSAIDs -Consider a renal biopsy -Contiue furosemide Hyponatremia -Encourage nutrition Hyperkalemia -Low potassium diet -Continue furosemide Hyperglycemia in the setting of steroids -Wean prednisone as tolerated -RISS Hypoalbuminemia -Encourage nutrition -IV Albumin prn Anemia in chronic illness Iron Deficiency 13.5% Thrombocytopenia -Monitor CBC Acute hypoxic respiratory failure with ARDS of unclear etiology -Continue Oxygen supplementation Greater than 30min patient care
[2022-01-05 02:51] LABS: Anti-Cardiolipin IgA Antibody <2.0 APL-U/mL (<20.0); PHOSPHATDYLSERINE AB IGA <20 U/mL (<20); PHOSPHATDYLSERINE AB IGG <10 U/mL (<10); PHOSPHATDYLSERINE AB IGM <25 U/mL (<25)
[2022-01-05 05:15] LABS: Potassium 5.1 mmol/L (3.5-5.1); Uric Acid 4.2 mg/dL (2.6-6.0)
[2022-01-05 05:19] LABS: Absolute Lymphocytes (CBC) 0.7 K/uL (0.7-4.9); Hematocrit 25.9 % (36.0-45.0); Lymphocytes % 7.9 % (15.3-44.8); MCV 81.9 fL (80-100); MPV 8.6 fL (7.6-11.3); RBC Red Blood Cell Count 3.16 M/uL (3.86-4.86)
[2022-01-05] MEDS: PANTOPRAZOLE 40MG TABLET PO SCH (05:54)
[2022-01-05] MEDS: FUROSEMIDE 20 MG/ 2ML VIAL IV SCH ×2 (08:26→16:58)
[2022-01-05] MEDS: CEFEPIME 1 GM in NA CHLORIDE 0.9% 100 ML IV SCH (08:26)
[2022-01-05] MEDS: SERTRALINE HCL 50 MG TAB PO SCH (08:26)
[2022-01-05] MEDS: predniSONE 20 MG TAB PO SCH (08:29)
[2022-01-05] MEDS: INSULIN -REGULAR HUMAN 50 UNIT/0.5 ML ML SQ SCH ×4 (08:29→21:13)
[2022-01-05] MEDS: ENSURE ENLIVE 237 ML CAN PO SCH ×2 (08:29→21:13)
[2022-01-05] MEDS ORDERED: ENOXAPARIN 40 MG/0.4 ML SQ SCH (12:41)
--- NOTE | 2022-01-05 12:41 | P.PN ---
Subjective Date of Service: 01/05/22 Primary Care Provider: Dr. Cortes Chief Complaint: Diffuse bilateral pneumonia acute renal failure Patient is still very short of breath requiring high concentrations of oxygen Review of Systems General: Weakness Respiratory: Shortness of Breath Physical Examination - Vital Signs Temperature: 97.1 F Blood Pressure: 107/62 Pulse: 88 Respirations: 22 Pulse Ox (%): 97 - Physical Exam General: Alert, Moderate distress Respiratory: Crackles/rales Cardiovascular: No edema, Regular rate/rhythm Assessment And Plan - Current Problems (Diagnosis) (1) ARDS (adult respiratory distress syndrome) Current Visit: Yes Status: Acute Plan: Respiratory failure chest x-ray is clearing hemoglobin stable platelet count is improving renal function improving creatinine is now normal bronchoscopy biopsies probably not helpful recommended renal biopsy by interventional radiology when stable per nephrology and is on prednisone Bactrim for PCP prophylaxis will DC cefepime for now evidence of active ongoing sepsis vital si gns stable patient is thrombocytopenic with hold anticoagulation for now
--- NOTE | 2022-01-05 12:46 | RAD REPORT ---
EXAM DESCRIPTION: RAD - Chest Single View - 01/05/2022 11:31 am CLINICAL HISTORY: resp failure COMPARISON: Portable 01/03/2022 TECHNIQUE: AP portable chest image was obtained 01/05/2022 11:31 am . FINDINGS: Interstitial and airspace opacities are scattered throughout both lung [place]. Lung volume s are low. Pattern is not substantially different from the comparison. No progression is seen. Heart size is normal range for shallow inspiration portable exam. No measurable pleural effusion and no pne umothorax. No acute bony abnormality seen. No acute aortic findings suspected. IMPRESSION: Extensive bilateral interstitial and alveolar opacification not substantially different from 01/03/2022 imaging.
[2022-01-05] MEDS: FLUCONAZOLE 100 MG TAB PO SCH (13:08)
--- NOTE | 2022-01-05 13:26 | P.PN ---
Subjective Date of Service: 01/05/22 Primary Care Provider: Dr. Cortes Chief Complaint: Diffuse bilateral pneumonia acute renal failure Subjective: Improving (Patient was having pleuritic chest/shoulder pain. Lidocaine ointment ordered.) Physical Examination - Vital Signs Temperature: 97.1 F Blood Pressure: 107/62 Pulse: 88 Respirations: 22 Pulse Ox (%): 97 - Physical Exam General: Mild distress HEENT: Atraumatic, Normocephalic Respiratory: Other (diminished air entry throughout) Cardiovascular: No edema, Regular rate/rhythm, Normal S1 S2 Musculoskeletal: No clubbing, No swelling, Other (fatigued) Assessment And Plan - Current Problems (Diagnosis) (1) ARDS (adult respiratory distress syndrome) Current Visit: Yes Status: Acute (2) Iron deficiency anemia Current Visit: Yes Status: Acute Qualifiers: Iron deficiency anemia type: unspecified iron deficiency Qualified Code(s): D50.9 - Iron deficiency anemia, unspecified (3) Pneumonia Current Visit: Yes Status: Acute Qualifiers: Pneumonia type: due to unspecified organism (4) Chest pain Onset Date: 11/01/17 Current Visit: No Status: Acute Qualifiers: Chest pain type: precordial pain Qualified Code(s): R07.2 - Precordial pain - Plan Assessment Patient is a 56 year old female currently in the unit with ARDS. She is requiring less and less oxygen. There was a concern for pulmonary-renal syndrome as she also have LIZANDRO on admission. Her [facility] panel and most of her serology has been negative so far. She has received pulse-dose steroid and cyclophosphamide. At this point, she seems to be improving. Severe sepsis ARDS and acute hypoxemic respiratory failure Pneumonia LIZANDRO Thrombocytopenia Physical deconditioning PLAN: I have discussed the case with Pulmonary and Nephrology. She seems to be improving from renal and pulmonary standpoint We'll have to complete her serology panel to decide whether to continue with immunosuppressive agents It does not look like she will need plasmapheresis at this point She is also a poor candidate for renal biopsy, as initially planned, because of thrombocytopenia Continue broad spectrum antibiotics and immunosuppression until clearance from Nephrology We can hold off transfer for now She will need to stay in the ICU until weaned off HFNC
[2022-01-05 19:31] LABS: UR PROTEIN 19.6 mg/dL (<11.9)
[2022-01-05 19:39] LABS: UR CREAT < 18.0 mg/dL (20-320)
[2022-01-05 19:49] LABS: Specific Gravity 1.007 (1.005-1.030); Urine Bacteria <20 /HPF (<20); Urine Bilirubin NEGATIVE (Negative); Urine Blood 3+ (OVER) (Negative); Urine Clarity Turbid (Clear); Urine Color Colorless (Yellow); Urine Glucose 2+ (Negative); Urine Mucus Slight /HPF (None Seen); Urine Protein NEGATIVE (Negative); Urine RBC >50 /HPF (None Seen); Urine Urobilinogen Normal (Normal)
[2022-01-05] MEDS: Oxycodone HCl/Acetaminophen 1 TAB TAB PO PRN (21:20)
--- NOTE | 2022-01-05 23:13 | P.PN ---
Date of Service: 01/05/22 Vital Signs Temp Pulse Resp BP Pulse Ox 97.7 F 98 H 22 H 126/81 94 01/05/22 16:00 01/05/22 21:00 01/05/22 21:00 01/05/22 21:00 01/05/22 21:00 Medications Fluconazole (Fluconazole 100 Mg Tab) 200 mg PO 1300 [facility]; Protocol Last Admin: 01/05/22 13:08 Dose: 200 mg Furosemide (Furosemide 20 Mg/ 2ml Vial) 20 mg IV BIDL [facility] Last Admin: 01/05/22 16:58 Dose: 20 mg Glucagon (Glucagon 1 Mg/Vial) 1 mg IM 1X PRN PRN Reason: HYPOGLYCEMIA Dextrose (D10w 500 Ml Ivpb) 125 mls @ 0 mls/hr IV PRN PRN; Protocol PRN Reason: HYPOGLYCEMIA Insulin Human Regular (Insulin -Regular Human 50 Unit/0.5 Ml Ml) 0 unit SQ ACHS [facility]; Protocol Last Admin: 01/05/22 21:13 Dose: 100 unit Nutritional Formula (Ensure Enlive 237 Ml Can) 237 ml PO BID [facility] Last Admin: 01/05/22 21:13 Dose: 237 ml Ondansetron HCl (Ondansetron 4 Mg/2 Ml Vial) 4 mg IV Q6HP PRN PRN Reason: NAUSEA / VOMITING Oxycodone/Acetaminophen (Oxycodone Hcl/Acetaminophen 1 Tab Tab) 1 tab PO Q4H PRN PRN Reason: Pain scale 5-7 (Moderate) Last Admin: 01/05/22 21:20 Dose: 1 tab Pantoprazole Sodium ([facility]op[facility]mg Tablet) [facility] Protocol Last Admin: 01/05/22 05:54 Dose: 40 mg Prednisone (Prednisone 20 Mg Tab) 40 mg PO DAILY [facility] Sertraline HCl (Sertraline Hcl 50 Mg Tab) 50 mg PO DAILY [facility] Last Admin: 01/05/22 08:26 Dose: 50 mg Sodium Chloride (Flush Normal Saline 10 Ml) 10 ml IV BID [facility] Last Admin: 01/05/22 21:13 Dose: 10 ml Trimethoprim/Sulfamethoxazole (Smz./Tmp. 800/160 Mg Tablet) 1 tab PO MoWeFr [facility] Last Admin: 01/04/22 13:24 Dose: 1 tab Microbiology Results 12/23/21 20:03 Clean Catch Urine [place] Count - Final <10,000 CFU/ML. 12/23/21 20:03 Clean Catch Urine - Final MIXED TONNY. 12/23/21 19:40 Nasopharnyx Influenza Type A Antigen Screen - Final 12/23/21 19:40 Nasopharnyx Influenza Type B Antigen Screen - Final Assessment/ Plan: Nephrology Dyspnea worse with activity Anorexia No chest pain No acute events overnight Vitals, medications, blood work and imaging reviewed in the chart. NAD. NCAT. MMM. Neck supple. Normal respiratory effort. RRR. Abd ND. No C/C/E. No rash. AAO. Normal speech. Cotton dark LIZANDRO of unclear etiology, improving CKD III with proteinuria Hematuria -No NSAIDs -Consider a renal biopsy -Contiue furosemide -Cancel transfer for plasmapheresis Hyponatremia -Encourage nutrition Hyperkalemia -Low potassium diet -Continue furosemide Hyperglycemia in the setting of steroids -Wean prednisone as tolerated -RISS Hypoalbuminemia -Encourage nutrition -IV Albumin prn Anemia in chronic illness Iron Deficiency 13.5% Thrombocytopenia -Monitor CBC Acute hypoxic respiratory failure with ARDS of unclear etiology -Continue Oxygen supplementation Greater than 30min patient care
[2022-01-06 05:09] LABS: Absolute Lymphocytes (CBC) 0.6 K/uL (0.7-4.9); Lymphocytes % 7.6 % (15.3-44.8); MCV 81.4 fL (80-100); MPV 8.5 fL (7.6-11.3); RBC Red Blood Cell Count 3.07 M/uL (3.86-4.86)
[2022-01-06 05:18] LABS: Bilirubin Total 0.8 mg/dL (0.2-1.0); Phosphorus 3.1 mg/dL (2.5-4.9); Potassium 4.8 mmol/L (3.5-5.1); Protein, Total 5.6 g/dL (6.4-8.2)
[2022-01-06] MEDS: PANTOPRAZOLE 40MG TABLET PO SCH (06:37)
--- NOTE | 2022-01-06 06:57 | RAD REPORT ---
EXAM DESCRIPTION: RAD - Chest Single View - 01/06/2022 6:41 am CLINICAL HISTORY: resp failure COMPARISON: Portable chest January 05, portable chest January 03 TECHNIQUE: AP portable chest image was obtained 01/06/2022 6:41 am . FINDINGS: Lung volumes have improved slightly from the comparison study. Extensive lung parenchymal opacities throughout both lung [place] showing very slight improvement. No progressive process seen. Heart and vasculature are normal. No measurable pleural effusion and no pneumothorax. No acute bony abnormality seen. No acute aortic findings suspected. IMPRESSION: Patient has very extensive bilateral lung parenchymal opacification showing only a sligh t improvement from prior day imaging.
[2022-01-06] MEDS: INSULIN -REGULAR HUMAN 50 UNIT/0.5 ML ML SQ SCH ×4 (07:30→20:07)
[2022-01-06] MEDS: FUROSEMIDE 20 MG/ 2ML VIAL IV SCH ×2 (08:35→20:06)
[2022-01-06] MEDS: predniSONE 20 MG TAB PO SCH (08:35)
[2022-01-06] MEDS: SERTRALINE HCL 50 MG TAB PO SCH (08:35)
[2022-01-06] MEDS: ENSURE ENLIVE 237 ML CAN PO SCH ×2 (08:36→20:08)
[2022-01-06] MEDS ORDERED: INSULIN GLARGINE 100 UNIT/ML SQ SCH (09:00)
[2022-01-06 09:23] LABS: Rheumatoid Factor POS (NEG)
--- NOTE | 2022-01-06 09:39 | P.PN ---
Subjective Date of Service: 01/06/22 Primary Care Provider: Dr. Cortes Chief Complaint: Diffuse bilateral pneumonia acute renal failure Subjective: Improving (Patient is on BIPAP, FiO2 of 50%. Complains of shortness of breath with minimal exertion.) Physical Examination - Vital Signs Temperature: 96.5 F Blood Pressure: 125/76 Pulse: 84 Respirations: 18 Pulse Ox (%): 95 - Physical Exam General: Cooperative, Other (fatigued and physically deconditioned) HEENT: Atraumatic, Normocephalic Respiratory: Other (BIPAP mask on) Cardiovascular: Regular rate/rhythm, Normal S1 S2 Musculoskeletal: No clubbing, No swelling, No contractures, Other (generalized weakness ) Neurological: Normal speech, Cranial nerves 3-12 intact Assessment And Plan - Current Problems (Diagnosis) (1) ARDS (adult respiratory distress syndrome) Current Visit: Yes Status: Acute (2) Iron deficiency anemia Current Visit: Yes Status: Acute Qualifiers: Iron deficiency anemia type: unspecified iron deficiency Qualified Code(s): D50.9 - Iron deficiency anemia, unspecified (3) Pneumonia Current Visit: Yes Status: Acute Qualifiers: Pneumonia type: due to unspecified organism (4) Chest pain Onset Date: 11/01/17 Current Visit: No Status: Acute Qualifiers: Chest pain type: precordial pain Qualified Code(s): R07.2 - Precordial pain - Plan Assessment Patient is a 56 year old female currently in the unit with ARDS. She is requiring less and less oxygen. There was a concern for pulmonary-renal syndrome as she also have LIZANDRO on admission. Her ANCA panel and most of her serology has been negative so far. She has received pulse-dose steroid and cyclophosphamide. At this point, she seems to be improving. Severe sepsis ARDS and acute hypoxemic respiratory failure Pneumonia LIZANDRO Thrombocytopenia Physical deconditioning PLAN: Continue respiratory support in the unit. Wean off BIPAP as tolerated She will most likely NOT need plasmapheresis given improvement of her renal function Nephrology is still contemplating renal biopsy due to persistent hematuria. However, she is a poor candidate now due to low PLT This can be done once her PLT recovers Continue broad spectrum antibiotics and immunosuppression until clearance from Nephrology Continue holding chemoppx due to low PLT Physician Review: Patient Assessed, Agree with Above Assessment and Plan
--- NOTE | 2022-01-06 11:50 | P.PN ---
Nephrology note: (S) Pt seen after several days and overall condition remains unchanged, remains on BIPAP alternating with HFNC, no sig radiographic improvement. UA still showing active urinary sediment. All of pt's questions answered, case discussed with IR regarding a kidney biopsy. (O) General: Alert, In no apparent distress currently HEENT: Atraumatic, Normocephalic, EOMI, BIPAP mask present Neck: Supple Respiratory: Mild tachypnea, Crackles/rales Cardiovascular: No edema, Regular rate/rhythm, Normal S1 S2, No gallops Gastrointestinal: Soft and benign, Non-distended, No tenderness Musculoskeletal: No swelling, No contractures, No erythema Integumentary: No rashes, No breakdown Neurological: Normal speech, Normal affect, non focal Laboratory Data (last 24 hrs) Reviewed in the EMR Conclusions/Impression: 1. Abnormal results of kidney function studies. 2. Stage II LIZANDRO resolved partially 3. Abnormal findings in urine unspecified 4. Microscopic hematuria unspecified 5. Abnormality of albumin 6. Dyspnea unspecified 7. Anemia, microcytic, unspecified 8. Proteinuria, unspecified 9. Iron deficiency -Pt's renal insufficiency on presentation was felt to be multifactorial and while levels have improved, Cr level remains > ULN and repeat UA continues to show active urinary sediment. Anti-GBM and P and C-ANCA studies have come back neg, LIAM/dsDNA also negative. There are a smaller percentages of cases where GPA can be present with negative ANCA studies. Did order additional studies including SSA/SSB, anti-phospholipid with latter negative. Pt did complete pulse steroids, Methylprednisone 1000 mg daily x 3 days this AM, so I did switch to Prednisone at a dose of 1 mg/kg or max 60 mg a day but current dose appears to have been lowered further to 40 mg qd Did order renal u/s to eval renal parenchyma and the kidneys do appear echogenic c/w an intrinsic process/injury. Given the negative serologies, may have to pursue tissue biopsy/renal biopsy so did discuss with IR, possible biopsy on Tue but will likely need to transfuse plt to get them over 75k, will check coags in AM and will need to see that pt can tolerate lying flat on her stomach for procedure. -Remained concerned about a renal-pulm syndrome and since C-ANCA initially suspected, pt was thought to benefit from plasmapheresis given her presentation but since ANCA studies negative, can not make a definitive argument for pursuing that procedure. Unable to do a bronch to confirm DAH given her tenuous resp status. Last week while serologies were pending did go ahead and order IV Cytoxan 1000 mg once which she tolerated. Continuing to monitor blood counts closely post dose. -Ok to cont gentle diuresis for pulm toilet given some diastolic dysfunction on echo but will lower Lasix dose. -Hold off on any ISACC inhibitors at this time. -Avoid nephrotoxins, no NSAIDs Jaron Espinal MD, [facility]
[2022-01-06 11:53] LABS: Specific Gravity 1.008 (1.005-1.030); Urine Bacteria <20 /HPF (<20); Urine Bilirubin NEGATIVE (Negative); Urine Blood 3+ (OVER) (Negative); Urine Clarity Clear (Clear); Urine Color Colorless (Yellow); Urine Crystals Unidentified Few /HPF (None Seen); Urine Glucose NEGATIVE (Negative); Urine Mucus Slight /HPF (None Seen); Urine Protein NEGATIVE (Negative); Urine Urobilinogen Normal (Normal); Urine pH 6.5 (5.0-7.0)
[2022-01-06] MEDS: FLUCONAZOLE 100 MG TAB PO SCH (11:56)
--- NOTE | 2022-01-06 12:08 | P.PN ---
Subjective Date of Service: 01/06/22 Primary Care Provider: Dr. Cortes Chief Complaint: Diffuse bilateral pneumonia acute renal failure Condition stable patient is apprehensive still requiring BiPAP high flow oxygen Review of Systems General: Weakness Respiratory: Shortness of Breath Physical Examination - Vital Signs Temperature: 96.5 F Blood Pressure: 125/76 Pulse: 84 Respirations: 18 Pulse Ox (%): 95 - Physical Exam General: Alert, Oriented x3, Mild distress Respiratory: Clear to auscultation bilaterally Cardiovascular: No edema, Normal S1 S2 Assessment And Plan - Current Problems (Diagnosis) (1) ARDS (adult respiratory distress syndrome) Current Visit: Yes Status: Acute Plan: ARDS unknown etiology resumed immunologically mediated patient's condition is stable renal function is improving chest x-ray no change FiO2 decreased to 55% flow alternating with BiPAP high blood sugars start on insulin labs reviewed hemoglobin platelet count stable commend transfer to an LTAC seen by nephrology appreciated Physician Review: Patient Assessed, Agree with Above Assessment and Plan
[2022-01-06] MEDS: SMZ./TMP. 800/160 MG TABLET PO SCH (13:46)
[2022-01-06] MEDS: Oxycodone HCl/Acetaminophen 1 TAB TAB PO PRN (20:06)
[2022-01-07 04:52] LABS: Protime INR 1.1
[2022-01-07 06:45] VITALS: BMI 40.0
[2022-01-07] MEDS: PANTOPRAZOLE 40MG TABLET PO SCH (06:49)
[2022-01-07] MEDS: INSULIN -REGULAR HUMAN 50 UNIT/0.5 ML ML SQ SCH ×4 (07:30→20:46)
[2022-01-07 08:12] LABS: Hematocrit 27.2 % (36.0-45.0); MCV 83.2 fL (80-100); RBC Red Blood Cell Count 3.27 M/uL (3.86-4.86)
[2022-01-07] MEDS: FUROSEMIDE 20 MG/ 2ML VIAL IV SCH ×2 (08:24→08:25)
[2022-01-07] MEDS: ENSURE ENLIVE 237 ML CAN PO SCH ×2 (08:24→20:46)
[2022-01-07] MEDS: INSULIN GLARGINE 100 UNIT/ML SQ SCH (08:25)
[2022-01-07] MEDS: SERTRALINE HCL 50 MG TAB PO SCH (08:25)
[2022-01-07 08:27] LABS: Potassium 4.4 mmol/L (3.5-5.1)
[2022-01-07] MEDS: predniSONE 20 MG TAB PO SCH (08:27)
[2022-01-07] MEDS ORDERED: FUROSEMIDE 20 MG/ 2ML VIAL IV SCH (09:00)
[2022-01-07 09:02] LABS: Anisocytosis 3+; Blood Morphology Comment NOTED (NOT SEEN); Hypochromasia 2+; Platelet Estimate DECR; Poikilocytosis 1+; Polychromasia SLIGHT; White Blood Cell Scan OK (OK)
[2022-01-07 09:03] LABS: Basophilic Stippling 1+; Teardrop Cell FEW
[2022-01-07] MEDS: FLUCONAZOLE 100 MG TAB PO SCH (12:15)
--- NOTE | 2022-01-07 12:48 | P.PN ---
Subjective Date of Service: 01/07/22 Primary Care Provider: Dr. Cortes Chief Complaint: Diffuse bilateral pneumonia acute renal failure Subjective: Improving (Patient is on HFNC with FiO2 of 70%. She is feeling better. No acute events overnight. She appears more energetic and less dyspneic today.) Physical Examination - Vital Signs Temperature: 96.4 F Blood Pressure: 124/75 Pulse: 96 Respirations: 18 Pulse Ox (%): 91 - Physical Exam General: Cooperative, Obese, Other (physically deconditioned) HEENT: Atraumatic, Normocephalic Respiratory: Other (HFNC) Cardiovascular: Normal pulses, Regular rate/rhythm, Normal S1 S2 Gastrointestinal: Soft and benign, Non-distended Musculoskeletal: No clubbing, No swelling, No contractures, No erythema, Other (generalized weakness) Neurological: Normal speech, Sensation intact, Cranial nerves 3-12 intact Assessment And Plan - Current Problems (Diagnosis) (1) ARDS (adult respiratory distress syndrome) Current Visit: Yes Status: Acute (2) Iron deficiency anemia Current Visit: Yes Status: Acute Qualifiers: Iron deficiency anemia type: unspecified iron deficiency Qualified Code(s): D50.9 - Iron deficiency anemia, unspecified (3) Pneumonia Current Visit: Yes Status: Acute Qualifiers: Pneumonia type: due to unspecified organism (4) Chest pain Onset Date: 11/01/17 Current Visit: No Status: Acute Qualifiers: Chest pain type: precordial pain Qualified Code(s): R07.2 - Precordial pain - Plan Assessment Patient is a 56 year old female currently in the unit with ARDS. She is requiring less and less oxygen. There was a concern for pulmonary-renal syndrome as she also have LIZANDRO on admission. Her ANCA panel and most of her serology has been negative so far. She has received pulse-dose steroid and cyclophosphamide. At this point, she seems to be improving. Severe sepsis ARDS and acute hypoxemic respiratory failure Pneumonia LIZANDRO Thrombocytopenia Physical deconditioning PLAN: Continue respiratory support in the unit. Wean off BIPAP as tolerated Patient will have platelet transfusion today in anticipation for renal biopsy tomorrow. Target PLT > 75K Repeat CBC this evening She will most likely NOT need plasmapheresis given improvement of her renal function Continue broad spectrum antibiotics and immunosuppression until clearance from Nephrology No chemoprophylaxis due to thrombocytopenia Patient will be discharged to LTAC once approved. Physician Review: Patient Assessed, Agree with Above Assessment and Plan
--- NOTE | 2022-01-07 13:03 | P.PN ---
Nephrology note: (S) Discussed with IR and primary team, proceeding with renal biopsy tmrw to obtain tissue diagnosis in the setting of negative serology but continued active urinary sediment. Pt I am told was able to tolerate lying prone for about 45 min today. Plan for plt transfusion discussed. Risks of kidney biopsy discussed with pt and she provides verbal consent to proceed with procedure tmrw. (O) General: Alert, In no apparent distress currently HEENT: Atraumatic, Normocephalic, EOMI, BIPAP mask present Neck: Supple Respiratory: Mild tachypnea, Crackles/rales Cardiovascular: No edema, Regular rate/rhythm, Normal S1 S2, No gallops Gastrointestinal: Soft and benign, Non-distended, No tenderness Musculoskeletal: No swelling, No contractures, No erythema Integumentary: No rashes, No breakdown Neurological: Normal speech, Normal affect, non focal Laboratory Data (last 24 hrs) Reviewed in the EMR Conclusions/Impression: 1. Abnormal results of kidney function studies. 2. Stage II LIZANDRO resolved partially 3. Abnormal findings in urine unspecified 4. Microscopic hematuria unspecified 5. Abnormality of albumin 6. Dyspnea unspecified 7. Anemia, microcytic, unspecified 8. Proteinuria, unspecified 9. Iron deficiency -Pt's renal insufficiency on presentation was felt to be multifactorial and while levels have improved, Cr level remains > ULN and repeat UA continues to show active urinary sediment. Anti-GBM and P and C-ANCA studies have come back neg, LIAM/dsDNA also negative. There are a smaller percentages of cases where GPA can be present with negative ANCA studies. Did order additional studies including SSA/SSB, anti-phospholipid with latter negative. Pt did complete pulse steroids, Methylprednisone 1000 mg daily x 3 days this AM, so I did switch to Prednisone at a dose of 1 mg/kg or max 60 mg a day but current dose appears to have been lowered further to 40 mg qd Did order renal u/s to eval renal parenchyma and the kidneys do appear echogenic c/w an intrinsic process/injury. Given the negative serologies, will have pursue tissue biopsy/renal biopsy to guide further therapy so did discuss with IR, biopsy on Tue but will likely need to transfuse plt to get them over 75k. Coags acceptable. -Remained concerned about a renal-pulm syndrome and since C-ANCA initially suspected, pt was thought to benefit from plasmapheresis given her presentation but since ANCA studies negative, can not make a definitive argument for pursuing that procedure. Unable to do a bronch to confirm DAH given her tenuous resp status. Last week while serologies were pending did go ahead and order IV Cytoxan 1000 mg once which she tolerated. If biopsy confirms a GN process, pauci-immune/ cresenteric or other, will cont Cytoxan dosing vs considering Rituxan. Continuing to monitor blood counts closely post dose last Tue. -Ok to cont gentle diuresis for pulm toilet given some diastolic dysfunction on echo but will lower Lasix dose. -Hold off on any ISACC inhibitors at this time. -Avoid nephrotoxins, no NSAIDs Jaron Espinal MD, [facility]
[2022-01-07] MEDS ORDERED: NA CHLORIDE 0.9% 250 ML ONE (14:38)
[2022-01-07 19:38] LABS: Hematocrit 29.4 % (36.0-45.0); MCV 84.5 fL (80-100); RBC Red Blood Cell Count 3.48 M/uL (3.86-4.86)
[2022-01-07 21:07] LABS: Immunoglobulin A 353 mg/dL (47-310); Immunoglobulin G 1475 mg/dL (600-1640); Immunoglobulin M 356 mg/dL (50-300)
[2022-01-07] MEDS: Oxycodone HCl/Acetaminophen 1 TAB TAB PO PRN (23:15)
[2022-01-07] MEDS ORDERED: NA CHLORIDE 0.9% 250 ML IV SCH (23:45)
[2022-01-08] MEDS ORDERED: NA CHLORIDE 0.9% 250 ML ONE ×2 (00:29→03:59)
[2022-01-08 02:32] LABS: MPV 8.9 fL (7.6-11.3)
[2022-01-08] MEDS: PANTOPRAZOLE 40MG TABLET PO SCH (06:01)
[2022-01-08 07:18] LABS: MPV 8.7 fL (7.6-11.3)
[2022-01-08] MEDS: INSULIN -REGULAR HUMAN 50 UNIT/0.5 ML ML SQ SCH ×4 (07:30→20:25)
[2022-01-08] MEDS: INSULIN GLARGINE 100 UNIT/ML SQ SCH (08:46)
[2022-01-08] MEDS: FUROSEMIDE 20 MG/ 2ML VIAL IV SCH ×2 (08:46→20:24)
[2022-01-08] MEDS ORDERED: FENTANYL CITR 100 MCG/2 ML ONE (09:49)
[2022-01-08] MEDS ORDERED: FLUMAZENIL 0.1 MG/ML (5 mL VIAL) IV ONE (09:49)
[2022-01-08] MEDS ORDERED: METOPROLOL TARTRATE 5 MG/5 ML INJ IV ONE (09:49)
[2022-01-08] MEDS ORDERED: HYDRALAZINE HCL 20 MG/ML VIAL ONE (09:49)
[2022-01-08] MEDS ORDERED: MIDAZOLAM HCL 5 ML ONE (09:49)
[2022-01-08] MEDS ORDERED: ATROPINE SULF 1 MG/10 ML SYR IV ONE (09:50)
[2022-01-08] MEDS ORDERED: NA CHLORIDE 0.9% 500 ML ONE (09:50)
[2022-01-08 10:34] LABS: KAPPA LIGHT CHAIN, FREE SERUM 37.9 mg/L (3.3-19.4)
[2022-01-08] MEDS: SERTRALINE HCL 50 MG TAB PO SCH (11:08)
[2022-01-08] MEDS: predniSONE 20 MG TAB PO SCH (11:08)
[2022-01-08] MEDS: ENSURE ENLIVE 237 ML CAN PO SCH ×2 (11:09→20:25)
[2022-01-08] MEDS: FLUCONAZOLE 100 MG TAB PO SCH ×2 (13:00→13:25)
[2022-01-08] MEDS: SMZ./TMP. 800/160 MG TABLET PO SCH (13:25)
--- NOTE | 2022-01-08 13:27 | RAD REPORT ---
EXAM DESCRIPTION: CT - Renal Biopsy CT - 01/08/2022 11:06 am CLINICAL HISTORY: RENAL DISEASE, acute kidney injury COMPARISON: Abdomen Pelvis W Contrast dated 03/13/2021 TECHNIQUE: Patient presents for image guided renal biopsy. Kidneys could not be sufficiently visuali zed for ultrasound guided biopsy. CT-guided biopsy was selected for this patient. The biopsy procedure, risks and alternatives were discussed with the patient in detail. After answeri ng all questions both oral and written consent were obtained. Patient had no contraindicated allergy or medication history. PT/ INR in platelet values were within acceptable limits. Patient was normoten sive. IV access and physiologic monitors were in place. The patient was placed in a prone position on the C T table. Preliminary imaging of the abdomen was performed. Left kidney was selected for biopsy. Patient was pre-medicated with Versed at 1.0 milligram IV and fentanyl 50 micrograms IV. Skin access site was selected. Skin was prepped and draped in the usual sterile fashion. Skin and maral per tissues down to the retroperitoneal fat anesthetized with 1% lidocaine. Using CT guidance a 17 ga uge introducer needle was advanced into the retroperitoneal space aligned with the lower pole of the left kidney. An 18 gauge biopsy needle was advanced through the introducer needle. Tip was placed at the posteroinferior aspect of the left kidney. All positioning of the introducer needle and the biops y needle performed using CT guidance. There are total of five 2 cm core biopsies obtained. Samples 1, 4 and 5 were deemed good samples unde r believed to adequately sampled the renal tissue. Samples 2 and 3 consisted of small fragments of ti ssue. These were likely samples of the retroperitoneal pericapsular tissues. At the conclusion of the procedure, the introducer needle was withdrawn. Direct pressure was applied to the skin puncture site. Post biopsy CT imaging showed very minimal blood in the retroperitoneal fa t adjacent to the kidney. This was not a clinically significant volume of blood. Patient was monitored throughout the procedure by nursing personnel. Vital signs were stable througho ut the procedure. Patient was transferred back to the ICU for continued care. Postprocedure care and precaution instructions were discussed with the nursing personnel. FINDINGS: Image guided biopsy was performed of the left kidney. All obtained material was given to p athology for histologic assessment.
[2022-01-08] MEDS ORDERED: ACETAMINOPHEN 500 MG TAB PO ONE (20:33)
--- NOTE | 2022-01-08 22:41 | P.PN ---
Date of Service: 01/08/22 Vital Signs Temp Pulse Resp BP Pulse Ox 97.5 F 98 H 18 143/71 H 88 L 01/08/22 20:21 01/08/22 20:24 01/08/22 20:21 01/08/22 20:24 01/08/22 20:21 Medications Fluconazole (Fluconazole 100 Mg Tab) 200 mg PO 1300 [facility]; Protocol Last Admin: 01/08/22 13:00 Dose: Not Given Furosemide (Furosemide 20 Mg/ 2ml Vial) 20 mg IV BID [facility] Last Admin: 01/08/22 20:24 Dose: 20 mg Glucagon (Glucagon 1 Mg/Vial) 1 mg IM 1X PRN PRN Reason: HYPOGLYCEMIA Dextrose (D10w 500 Ml Ivpb) 125 mls @ 0 mls/hr IV PRN PRN; Protocol PRN Reason: HYPOGLYCEMIA Sodium Chloride (Sodium Chloride) 250 mls @ 0 mls/hr IV .Q0M [facility] Insulin Glargine (Insulin Glargine 100 Unit/Ml) 20 unit SQ DAILY [facility] Last Admin: 01/08/22 08:46 Dose: 20 unit Insulin Human Regular (Insulin -Regular Human 50 Unit/0.5 Ml Ml) 0 unit SQ ACHS [facility]; Protocol Last Admin: 01/08/22 20:25 Dose: 5 unit Nutritional Formula (Ensure Enlive 237 Ml Can) 237 ml PO BID [facility] Last Admin: 01/08/22 20:25 Dose: 237 ml Ondansetron HCl (Ondansetron 4 Mg/2 Ml Vial) 4 mg IV Q6HP PRN PRN Reason: NAUSEA / VOMITING Pantoprazole Sodium ([facility]mg Tablet) [facility] Last Admin: 01/08/22 06:01 Dose: 40 mg Prednisone (Prednisone 20 Mg Tab) 40 mg PO DAILY [facility] Last Admin: 01/08/22 11:08 Dose: 40 mg Sertraline HCl (Sertraline Hcl 50 Mg Tab) 50 mg PO DAILY [facility] Last Admin: 01/08/22 11:08 Dose: 50 mg Sodium Chloride (Flush Normal Saline 10 Ml) 10 ml IV BID [facility] Last Admin: 01/08/22 20:25 Dose: 10 ml Trimethoprim/Sulfamethoxazole (Smz./Tmp. 800/160 Mg Tablet) 1 tab PO MoWeFr [facility] Last Admin: 01/08/22 13:25 Dose: 1 tab Microbiology Results 12/23/21 20:03 Clean Catch Urine [place] Count - Final <10,000 CFU/ML. 12/23/21 20:03 Clean Catch Urine - Final MIXED TONNY. 12/23/21 19:40 Nasopharnyx Influenza Type A Antigen Screen - Final 12/23/21 19:40 Nasopharnyx Influenza Type B Antigen Screen - Final Assessment/ Plan: Nephrology Dyspnea worse with activity Anorexia Persistent fatigue and weakness No chest pain No acute events overnight Vitals, medications, blood work and imaging reviewed in the chart. NAD. Obese. NCAT. MMM. Neck supple. Normal respiratory effort. RRR. Abd ND. No C/C/E. No rash. AAO. Normal speech. Cotton dark LIZANDRO of unclear etiology, improving CKD III with proteinuria Hematuria -No NSAIDs -Renal biopsy results pending -Contiue furosemide Hyponatremia -Encourage nutrition Hyperkalemia -Low potassium diet -Continue furosemide Hyperglycemia in the setting of steroids -Wean prednisone as tolerated -RISS Hypoalbuminemia -Encourage nutrition -IV Albumin prn Anemia in chronic illness Iron Deficiency 13.5% Thrombocytopenia -Monitor CBC Acute hypoxic respiratory failure with ARDS of unclear etiology -Continue Oxygen supplementation
[2022-01-09] MEDS: PANTOPRAZOLE 40MG TABLET PO SCH (07:13)
[2022-01-09] MEDS: INSULIN -REGULAR HUMAN 50 UNIT/0.5 ML ML SQ SCH ×4 (07:30→21:27)
[2022-01-09] MEDS: INSULIN GLARGINE 100 UNIT/ML SQ SCH (09:00)
[2022-01-09] MEDS: FUROSEMIDE 20 MG/ 2ML VIAL IV SCH (09:00)
[2022-01-09] MEDS: predniSONE 20 MG TAB PO SCH (09:00)
[2022-01-09] MEDS: ENSURE ENLIVE 237 ML CAN PO SCH ×2 (09:00→21:27)
[2022-01-09] MEDS: FUROSEMIDE 40 MG TABLET PO SCH (09:00)
--- NOTE | 2022-01-09 09:10 | P.PN ---
Subjective Date of Service: 01/08/22 Primary Care Provider: Dr. Cortes Chief Complaint: Diffuse bilateral pneumonia acute renal failure Patient's condition is stable s/p biopsy of the kidneys seen by nephrology no significant change in oxygen status Review of Systems General: Weakness Respiratory: Shortness of Breath Physical Examination - Vital Signs Temperature: 97.3 F Blood Pressure: 138/65 Pulse: 83 Respirations: 20 Pulse Ox (%): 89 - Physical Exam General: Alert, In no apparent distress, Mild distress Respiratory: Clear to auscultation bilaterally Cardiovascular: No edema, Regular rate/rhythm Assessment And Plan - Current Problems (Diagnosis) (1) ARDS (adult respiratory distress syndrome) Current Visit: Yes Status: Acute Plan: ARDS and acute renal failure of unknown etiology renal function is normal it is post renal biopsy thrombocytopenic I suspect from Cytoxan patient was transfused platelets is on prednisone we will start tapering continue with BiPAP alternating with high flow prone position physical therapy Physician Review: Patient Assessed, Agree with Above Assessment and Plan
[2022-01-09] MEDS: SERTRALINE HCL 50 MG TAB PO SCH (09:21)
--- NOTE | 2022-01-09 11:05 | P.PN ---
Subjective Date of Service: 01/09/22 Primary Care Provider: Dr. Cortes Chief Complaint: Diffuse bilateral pneumonia acute renal failure Patient is subjectively feeling better is currently transferred to the floor on high flow oxygen it is post renal biopsy Review of Systems General: Weakness Respiratory: Shortness of Breath Physical Examination - Vital Signs Temperature: 97.3 F Blood Pressure: 138/65 Pulse: 83 Respirations: 20 Pulse Ox (%): 89 - Physical Exam General: Alert, In no apparent distress, Moderate distress Respiratory: Clear to auscultation bilaterally, Diminished Cardiovascular: No edema, Regular rate/rhythm, Normal S1 S2 Assessment And Plan - Current Problems (Diagnosis) (1) ARDS (adult respiratory distress syndrome) Current Visit: Yes Status: Acute Plan: ARDS of unknown etiology reduce prednisone to 20 mg once a day labs ordered DC scheduled insulin use sliding scale now still continues to remain hypoxic use high flow prone positioning slight negative fluid balance resume Lasix Physician Review: Patient Assessed, Agree with Above Assessment and Plan
[2022-01-09] MEDS ORDERED: GLUCAGON 1 MG/VIAL IM PRN (11:08)
[2022-01-09] MEDS ORDERED: D50W 25 GM/50 ML SYRINGE IV PRN (11:08)
[2022-01-09 13:43] LABS: Hematocrit 27.4 % (36.0-45.0); MCV 85.9 fL (80-100); MPV 8.5 fL (7.6-11.3)
[2022-01-09] MEDS: FLUCONAZOLE 100 MG TAB PO SCH (13:47)
[2022-01-09] MEDS: ACETAMINOPHEN 500 MG TAB PO PRN (13:47)
[2022-01-09 13:56] LABS: Potassium 4.6 mmol/L (3.5-5.1)
--- NOTE | 2022-01-09 23:07 | P.PN ---
Date of Service: 01/09/22 Vital Signs Temp Pulse Resp BP Pulse Ox 97.5 F 97 H 20 129/60 91 01/09/22 20:00 01/09/22 20:00 01/09/22 20:00 01/09/22 20:00 01/09/22 20:00 Medications Acetaminophen (Acetaminophen 500 Mg Tab) 500 mg PO Q6H PRN PRN Reason: Pain scale 2-4 (Mild) Last Admin: 01/09/22 13:47 Dose: 500 mg Dextrose (D50w 25 Gm/50 Ml Syringe) 12.5 gm IV PRN PRN PRN Reason: HYPOGLYCEMIA Fluconazole (Fluconazole 100 Mg Tab) 200 mg PO 1300 [facility]; Protocol Last Admin: 01/09/22 13:47 Dose: 200 mg Furosemide (Furosemide 40 Mg Tablet) 20 mg PO DAILY [facility] Last Admin: 01/09/22 09:00 Dose: Not Given Glucagon (Glucagon 1 Mg/Vial) 1 mg IM 1X PRN PRN Reason: HYPOGLYCEMIA Glucagon (Glucagon 1 Mg/Vial) 1 mg IM 1X PRN PRN Reason: HYPOGLYCEMIA Dextrose (D10w 500 Ml Ivpb) 125 mls @ 0 mls/hr IV PRN PRN; Protocol PRN Reason: HYPOGLYCEMIA Insulin Human Regular (Insulin -Regular Human 50 Unit/0.5 Ml Ml) 0 unit SQ ACHS [facility]; Protocol Last Admin: 01/09/22 21:27 Dose: 3 unit Nutritional Formula (Ensure Enlive 237 Ml Can) 237 ml PO BID [facility] Last Admin: 01/09/22 21:27 Dose: 237 ml Ondansetron HCl (Ondansetron 4 Mg/2 Ml Vial) 4 mg IV Q6HP PRN PRN Reason: NAUSEA / VOMITING Pantoprazole [facility] ([facility] Last Admin: 01/09/22 07:13 Dose: 40 mg Prednisone (Prednisone 20 Mg Tab) 20 mg PO DAILY [facility] Sertraline HCl (Sertraline Hcl 50 Mg Tab) 50 mg PO DAILY [facility] Last Admin: 01/09/22 09:21 Dose: 50 mg Sodium Chloride (Flush Normal Saline 10 Ml) 10 ml IV BID [facility] Last Admin: 01/09/22 21:27 Dose: 10 ml Trimethoprim/Sulfamethoxazole (Smz./Tmp. 800/160 Mg Tablet) 1 tab PO MoWeFr [facility] Last Admin: 01/08/22 13:25 Dose: 1 tab Microbiology Results 12/23/21 20:03 Clean Catch Urine [place] Count - Final <10,000 CFU/ML. 12/23/21 20:03 Clean Catch Urine - Final MIXED TONNY. 12/23/21 19:40 Nasopharnyx Influenza Type A Antigen Screen - Final 12/23/21 19:40 Nasopharnyx Influenza Type B Antigen Screen - Final Assessment/ Plan: Nephrology Dyspnea worse with activity Anorexia Persistent fatigue and weakness No chest pain No acute events overnight Vitals, medications, blood work and imaging reviewed in the chart. NAD. Obese. NCAT. MMM. Neck supple. Normal respiratory effort. RRR. Abd ND. No C/C/E. No rash. AAO. Normal speech. Cotton dark LIZANDRO of unclear etiology, improving CKD III with proteinuria Hematuria -No NSAIDs -Renal biopsy results pending -Contiue furosemide Hyponatremia -Encourage nutrition Hyperkalemia -Low potassium diet -Continue furosemide Hyperglycemia in the setting of steroids -Wean prednisone as tolerated -RISS Hypoalbuminemia -Encourage nutrition -IV Albumin prn Anemia in chronic illness Iron Deficiency 13.5% Thrombocytopenia -Monitor CBC Acute hypoxic respiratory failure with ARDS of unclear etiology -Continue Oxygen supplementation
[2022-01-10] MEDS: ACETAMINOPHEN 500 MG TAB PO PRN (04:05)
[2022-01-10] MEDS ORDERED: HYDROCODONE/APAP 7.5/325 MG TAB PO ONE (05:36)
[2022-01-10] MEDS: PANTOPRAZOLE 40MG TABLET PO SCH (06:05)
--- NOTE | 2022-01-10 07:10 | RAD REPORT ---
EXAM DESCRIPTION: RAD - Chest Single View - 01/10/2022 6:48 am CLINICAL HISTORY: Respiratory failure COMPARISON: January 06, January 05 TECHNIQUE: AP portable chest image was obtained 01/10/2022 6:48 am . FINDINGS: Lung volumes are very low, reduced compared to already low lung volumes on prior imaging. Extensive interstitial and alveolar opacities are present, worse on the left. No further improvement since January 06 imaging. Heart size is prominent, stable, accentuated by low lung volume portable exam. Vasculature is obscur ed by the lung parenchymal opacification. No measurable pleural effusion and no pneumothorax. No acute bony abnormality seen. No acute aortic findings suspected. IMPRESSION: Extensive bilateral lung parenchymal opacification showing no improvement from January 06 imaging.
[2022-01-10] MEDS: INSULIN -REGULAR HUMAN 50 UNIT/0.5 ML ML SQ SCH ×4 (07:30→21:00)
[2022-01-10] MEDS ORDERED: INSULIN GLARGINE 100 UNIT/ML SQ SCH (09:00)
[2022-01-10] MEDS: ENSURE ENLIVE 237 ML CAN PO SCH ×2 (09:00→21:00)
[2022-01-10] MEDS ORDERED: predniSONE 20 MG TAB PO SCH (09:00)
--- NOTE | 2022-01-10 09:15 | P.PN ---
Subjective Date of Service: 01/10/22 Primary Care Provider: Dr. Cortes Chief Complaint: Diffuse bilateral pneumonia acute renal failure No change in patient's condition status still continues to remain hypoxic and apprehensive still 100% high flow oxygen Review of Systems General: Weakness Respiratory: Shortness of Breath Physical Examination - Vital Signs Temperature: 97.9 F Blood Pressure: 126/64 Pulse: 91 Respirations: 18 Pulse Ox (%): 90 - Physical Exam General: Alert, Oriented x3, Moderate distress Respiratory: Crackles/rales Cardiovascular: No edema, Regular rate/rhythm, Normal S1 S2 Gastrointestinal: Normal bowel sounds, Soft and benign Assessment And Plan - Current Problems (Diagnosis) (1) ARDS (adult respiratory distress syndrome) Current Visit: Yes Status: Acute Plan: ARDS reduce prednisone to 10 mg once a day at pressure stable still on high flow 100% FiO2 blood sugars are improving creatinine is slightly worse awaiting transfer to an LTAC chest x-ray no change still has diffuse ARDS Physician Review: Patient Assessed, Agree with Above Assessment and Plan
[2022-01-10] MEDS: FUROSEMIDE 40 MG TABLET PO SCH (09:22)
[2022-01-10] MEDS: SERTRALINE HCL 50 MG TAB PO SCH (09:23)
[2022-01-10] MEDS: FLUCONAZOLE 100 MG TAB PO SCH (14:28)
--- NOTE | 2022-01-10 17:45 | P.PN ---
Date of Service: 01/10/22 Vital Signs Temp Pulse Resp BP Pulse Ox 98.5 F 101 H 18 131/63 93 01/10/22 15:56 01/10/22 15:56 01/10/22 15:56 01/10/22 15:56 01/10/22 15:56 Medications Acetaminophen (Acetaminophen 500 Mg Tab) 500 mg PO Q6H PRN PRN Reason: Pain scale 2-4 (Mild) Last Admin: 01/10/22 04:05 Dose: 500 mg Dextrose (D50w 25 Gm/50 Ml Syringe) 12.5 gm IV PRN PRN PRN Reason: HYPOGLYCEMIA Fluconazole (Fluconazole 100 Mg Tab) 200 mg PO 1300 [facility]; Protocol Last Admin: 01/10/22 14:28 Dose: 200 mg Furosemide (Furosemide 40 Mg Tablet) 20 mg PO DAILY [facility] Last Admin: 01/10/22 09:22 Dose: 20 mg Glucagon (Glucagon 1 Mg/Vial) 1 mg IM 1X PRN PRN Reason: HYPOGLYCEMIA Glucagon (Glucagon 1 Mg/Vial) 1 mg IM 1X PRN PRN Reason: HYPOGLYCEMIA Dextrose (D10w 500 Ml Ivpb) 125 mls @ 0 mls/hr IV PRN PRN; Protocol PRN Reason: HYPOGLYCEMIA Insulin Human Regular (Insulin -Regular Human 50 Unit/0.5 Ml Ml) 0 unit SQ ACHS [facility]; Protocol Last Admin: 01/10/22 16:15 Dose: 7 unit Nutritional Formula (Ensure Enlive 237 Ml Can) 237 ml PO BID [facility] Last Admin: 01/10/22 09:00 Dose: 237 ml Ondansetron HCl (Ondansetron 4 Mg/2 Ml Vial) 4 mg IV Q6HP PRN PRN Reason: NAUSEA / VOMITING Pantoprazole Sodium (Pantoprazole 40mg Tablet) [facility]; Protocol Last Admin: 01/10/22 06:05 Dose: 40 mg Prednisone (Prednisone 20 Mg Tab) 20 mg PO DAILY [facility] Sertraline HCl (Sertraline Hcl 50 Mg Tab) 50 mg PO DAILY [facility] Last Admin: 01/10/22 09:23 Dose: 50 mg Sodium Chloride (Flush Normal Saline 10 Ml) 10 ml IV BID [facility] Last Admin: 01/10/22 09:00 Dose: 10 ml Trimethoprim/Sulfamethoxazole (Smz./Tmp. 800/160 Mg Tablet) 1 tab PO MoWeFr [facility] Last Admin: 01/08/22 13:25 Dose: 1 tab Microbiology Results 12/23/21 20:03 Clean Catch Urine [place] Count - Final <10,000 CFU/ML. 12/23/21 20:03 Clean Catch Urine - Final MIXED TONNY. 12/23/21 19:40 Nasopharnyx Influenza Type A Antigen Screen - Final 12/23/21 19:40 Nasopharnyx Influenza Type B Antigen Screen - Final Assessment/ Plan: Nephrology Dyspnea worse with activity Anorexia Persistent fatigue and weakness No chest pain No acute events overnight Vitals, medications, blood work and imaging reviewed in the chart. NAD. Obese. NCAT. MMM. Neck supple. Normal respiratory effort. RRR. Abd ND. No C/C/E. No rash. AAO. Normal speech. Cotton dark LIZANDRO of unclear etiology, improving CKD III with proteinuria Hematuria -No NSAIDs -Renal biopsy results pending -Contiue furosemide Hyponatremia -Encourage nutrition Hyperkalemia -Low potassium diet -Continue furosemide Hyperglycemia in the setting of steroids -Wean prednisone as tolerated -RISS Hypoalbuminemia -Encourage nutrition -IV Albumin prn Anemia in chronic illness Iron Deficiency 13.5% Thrombocytopenia -Monitor CBC Acute hypoxic respiratory failure with ARDS of unclear etiology -Continue Oxygen supplementation -Continue Prednisone Case reviewed with Dr. Cruz
[2022-01-11] MEDS: PANTOPRAZOLE 40MG TABLET PO SCH (06:35)
[2022-01-11] MEDS: INSULIN -REGULAR HUMAN 50 UNIT/0.5 ML ML SQ SCH ×4 (07:30→20:07)
[2022-01-11] MEDS: ENSURE ENLIVE 237 ML CAN PO SCH ×2 (09:00→20:07)
[2022-01-11] MEDS ORDERED: predniSONE 20 MG TAB PO SCH ×2 (09:00)
[2022-01-11] MEDS: FUROSEMIDE 40 MG TABLET PO SCH (09:34)
[2022-01-11] MEDS: SERTRALINE HCL 50 MG TAB PO SCH (09:34)
[2022-01-11] MEDS: ACETAMINOPHEN 500 MG TAB PO PRN (09:34)
[2022-01-11] MEDS ORDERED: predniSONE 20 MG TAB PO ONE (11:15)
[2022-01-11 12:00] LABS: Absolute Lymphocytes (CBC) 0.3 K/uL (0.7-4.9); Hematocrit 24.8 % (36.0-45.0); Lymphocytes % 8.3 % (15.3-44.8); MPV 8.3 fL (7.6-11.3); RBC Red Blood Cell Count 2.92 M/uL (3.86-4.86)
[2022-01-11 12:18] LABS: Albumin 2.1 g/dL (3.4-5.0); Bilirubin Total 1.1 mg/dL (0.2-1.0); Potassium 4.2 mmol/L (3.5-5.1); Protein, Total 5.4 g/dL (6.4-8.2)
[2022-01-11 13:23] LABS: Anisocytosis 3+; Blood Morphology Comment NOTED (NOT SEEN); Platelet Estimate DECR; White Blood Cell Scan OK (OK)
[2022-01-11] MEDS: FLUCONAZOLE 100 MG TAB PO SCH (13:24)
[2022-01-11] MEDS: SMZ./TMP. 800/160 MG TABLET PO SCH (13:24)
[2022-01-11] MEDS ORDERED: HYDROCODONE/APAP 5/325 MG TAB PO PRN (14:47)
--- NOTE | 2022-01-11 14:50 | P.PN ---
Subjective Date of Service: 01/11/22 Primary Care Provider: Dr. Cortes Chief Complaint: Diffuse bilateral pneumonia acute renal failure Patient is on 100% FiO2 and 20 L high flow oxygen. She is complaining of headache. Physical Examination - Vital Signs Temperature: 97.8 F Blood Pressure: 126/65 Pulse: 99 Respirations: 20 Pulse Ox (%): 100 Assessment And Plan - Plan Physical Exam: Gen: AOx3, NAD HEENT: normal conjunctiva, sclera anicteric CV: regular rate & rhythm, no edema Pulm: b/l crackles. Adequate breath sounds bilaterally Abd: soft, non-tender, non-distended Neuro: normal speech, moves all extremities Cotton in place vitals reviewed Problem List Sepsis secondary to possible bilateral pneumonia acute hypoxemic respiratiory failure new onset CHF- diastolic (HFpEF) LIZANDRO Microcytic anemia/ ADRIANNA h/o RA Sepsis/bilateral pneumonia/ARDS/acute respiratory failure with hypoxia unclear etiology, review of CT chest - with atypical appearance Suspect inflammatory process/ARDS. No hemoptysis. Family history of lupus. TTE: moderate diastolic dysfunction On oral lasix, serial CXR: no significant change steroids initiated 125 IV BID solumedrol by pulm on 12/24, increased to 1g daily total on 12/26, decreased to 500 mg every 12. Now transition to p.o. prednisone. Cotton placed on 12/25 Initiated transfer to tertiary center for further evaluation and management of pulmonary-renal syndrome. Autoimmune panel: Anti proteinase 3, double-stranded DNA, Antimyeloperoxidase are negative, serum/urine electrophoresis-no M spike or gammopathy. Urine immunoglobulin light chains elevated-unclear significance. Low complement C4. Patient given a dose of cyclophosphamide. Not much improvement in respiratory status after cyclophosphamide. Continue antibiotics Continue to wean oxygen as tolerated. Status post renal biopsy. Result is pending Awaiting insurance authorization for transfer to [facility]. LIZANDRO 2/2 NSAID usage, received IV contrast for CT in ED; ?lupus nephritis ?[facility] nephrology is following. Hematuria suggest glomerulonephritis. Diuresis per nephrology On steroid. LIZANDRO resolved. iron def anemia Received IV iron per pulm 12/25 h/o RA multiple family members with lupus On prednisone. Patient also given a dose of cyclophosphamide. Monitor CBC. Thrombocytopenia Platelet count trended down by 50%. All anticoagulation including Lovenox for DVT prophylaxis on hold. Hyperglycemia Likely steroid-induced Check hemoglobin A1c Insulin sliding scale. VTE: SCD. Code: full Physician Review: Patient Assessed, Agree with Above Assessment and Plan
--- NOTE | 2022-01-11 18:19 | P.DS ---
Admission Date: 12/24/21 Discharge Date: 01/11/22 Primary Care Provider: Dr. Cortes Disposition: [facility] Discharge Condition: FAIR Reason for Admission: Diffuse bilateral pneumonia acute renal failure Brief History of Present Illness: 56-year-old female with history of anemia, polio presents emergency department for dyspnea, chest pain, chills. Patient reported that she had upper respirat ory symptoms about 2 weeks prior and was placed on cefdinir on 12/10/2019 by her primary care doctor. She developed increasing shortness of breath as well as fever, chills despite the antibiotics. She was evaluated here in the emergency department labs were significant for white blood cell count of 7.9 D-dimer 2316 BNP 3087 creatinine 1.36 GFR 46. Chest x-ray showed marked bilateral pulmonary. CTA of the chest shows no PE, moderate to marked bilateral alveolar opacities within the lungs which could be pulmonary edema or pneumonia. Patient met SIRS criteria with only tachypnea initially, newly documented vital signs in ED with additional SIRS criteria of tachycardia and now meets criteria for sepsis without severe sepsis. Blood cultures and lactate ordered. antibiotics be given after blood cultures drawn. Patient admitted for further management. Hospital Course: Problem List Sepsis secondary to possible bilateral pneumonia acute hypoxemic respiratiory failure new onset CHF- diastolic (HFpEF) LIZANDRO Microcytic anemia/ ADRIANNA h/o RA Sepsis/bilateral pneumonia/ARDS/acute respiratory failure with hypoxia unclear etiology, review of CT chest - with atypical appearance of infiltrate Patient required high flow oxygen and BiPAP Suspect inflammatory process/ARDS. No hemoptysis. Family history of lupus. TTE: moderate diastolic dysfunction She was treated with Lasix, serial CXR: no significant change steroids initiated 125 IV BID solumedrol by pulm on 12/24, increased to 1g daily total on 12/26, decreased to 500 mg every 12. Later transitioned to p.o. prednisone. Cotton placed on 12/25 Autoimmune panel: Anti proteinase 3, double-stranded DNA, Antimyeloperoxidase are negative, serum/urine electrophoresis-no M spike or gammopathy. Urine immunoglobulin light chains elevated-unclear significance. Low complement C4. Patient given a dose of cyclophosphamide. No significant clinical improvement afterwards She was treated with antibiotics Renal biopsy done and the result is pending to be followed. LIZANDRO 2/2 NSAID usage, received IV contrast for CT in ED; ?lupus nephritis. Vasculitis panel was negative nephrology saw patient and assisted with management. Hematuria suggest glomerulonephritis. Treated with steroid. LIZANDRO resolved. iron def anemia Received IV iron per pulm 12/25 h/o RA multiple family members with lupus Treated with prednisone. Patient also given a dose of cyclophosphamide. Thrombocytopenia Platelet count trended down by 50%. Held all anticoagulation including Lovenox for DVT prophylaxis. Hyperglycemia Likely steroid-induced. Hemoglobin A1c 5.4. No diabetes. Treated with insulin sliding scale. Patient accepted to LTAC to continue treatment. She is currently needing high flow oxygen at 20 L/min and 100% FiO2. Vital Signs/Physical Exam: Temp Pulse Resp BP Pulse Ox 97.5 F 104 H 20 125/64 90 L 01/11/22 16:00 01/11/22 16:00 01/11/22 16:00 01/11/22 16:00 01/11/22 16:00 General: Alert, In no apparent distress Neck: JVD not distended Respiratory: Crackles/rales (Bilateral) Cardiovascular: No edema, Regular rate/rhythm, Normal S1 S2 Gastrointestinal: Soft and benign, Non-distended Musculoskeletal: No swelling Neurological: Normal strength at 5/5 x4 extr Laboratory Data at Discharge: WBC 3.60 K/uL (4.3-10.9) L 01/11/22 11:42 Hgb 8.3 g/dL (12.0-15.0) L 01/11/22 11:42 Hct 24.8 % (36.0-45.0) L 01/11/22 11:42 Plt Count 40 K/uL (152-406) L* 01/11/22 11:42 PT 12.1 SECONDS (9.5-12.5) 01/07/22 04:33 INR 1.10 01/07/22 04:33 APTT 27.6 SECONDS (24.3-36.9) 01/07/22 04:33 Sodium 135 mmol/L (136-145) L 01/11/22 11:42 Potassium 4.2 mmol/L (3.5-5.1) 01/11/22 11:42 BUN 30 mg/dL (7-18) H 01/11/22 11:42 Creatinine 1.22 mg/dL (0.55-1.3) 01/11/22 11:42 Glucose 143 mg/dL (74-106) H 01/11/22 11:42 Uric Acid 4.2 mg/dL (2.6-6.0) 01/05/22 04:46 Phosphorus 3.0 mg/dL (2.5-4.9) 01/11/22 11:42 Magnesium 2.4 mg/dL (1.8-2.4) 01/04/22 04:47 Total Bilirubin 1.1 mg/dL (0.2-1.0) H 01/11/22 11:42 AST 70 U/L (15-37) H 01/11/22 11:42 ALT 83 U/L (12-78) H 01/11/22 11:42 Alkaline Phosphatase 274 U/L (45-117) H 01/11/22 11:42 Triglycerides 84 mg/dL (<150) 12/24/21 04:43 Cholesterol 129 mg/dL (<200) 12/24/21 04:43 HDL Cholesterol 29 mg/dL (40-60) L 12/24/21 04:43 Cholesterol/HDL Ratio 4.45 12/24/21 04:43 Home Medications: Sertraline [Zoloft*] 50 mg PO DAILY 03/23/21 Ensure Enlive 237 ml PO BID can 01/11/22 Furosemide [Lasix*] 20 mg PO DAILY tab 01/11/22 Hydrocodone 5/APAP 325 [[place] 5/325*] 1 tab PO Q6H PRN tab 01/11/22 Insulin -Regular Human [Novolin -R*] See Protocol SQ ACHS ml 01/11/22 Pantoprazole [Protonix Tab*] 40 mg PO DAILYAC tab 01/11/22 Smz./Tmp. [Bactrim Ds 800 MG/160 MG*] 1 tab PO MoWeFr tab 01/11/22 predniSONE [Prednisone*] 40 mg PO DAILY tab 01/11/22 Followup: Sophia DC,Rosy Estrada DO [Primary Care Provider] - Time spent managing pt's care (in minutes): 42
--- NOTE | 2022-01-11 21:09 | P.PN ---
Date of Service: 01/11/22 Vital Signs Temp Pulse Resp BP Pulse Ox 97.5 F 104 H 20 125/64 90 L 01/11/22 16:00 01/11/22 16:00 01/11/22 16:00 01/11/22 16:00 01/11/22 16:00 Medications Acetaminophen (Acetaminophen 500 Mg Tab) 500 mg PO Q6H PRN PRN Reason: Pain scale 2-4 (Mild) Last Admin: 01/11/22 09:34 Dose: 500 mg Hydrocodone Bitart/Acetaminophen (Hydrocodone/Apap 5/325 Mg Tab) 1 tab PO Q6H PRN PRN Reason: Pain scale 5-7 (Moderate) Dextrose (D50w 25 Gm/50 Ml Syringe) 12.5 gm IV PRN PRN PRN Reason: HYPOGLYCEMIA Fluconazole (Fluconazole 100 Mg Tab) 200 mg PO 1300 [facility]; Protocol Last Admin: 01/11/22 13:24 Dose: 200 mg Furosemide (Furosemide 40 Mg Tablet) 20 mg PO DAILY [facility] Last Admin: 01/11/22 09:34 Dose: 20 mg Glucagon (Glucagon 1 Mg/Vial) 1 mg IM 1X PRN PRN Reason: HYPOGLYCEMIA Glucagon (Glucagon 1 Mg/Vial) 1 mg IM 1X PRN PRN Reason: HYPOGLYCEMIA Dextrose (D10w 500 Ml Ivpb) 125 mls @ 0 mls/hr IV PRN PRN; Protocol PRN Reason: HYPOGLYCEMIA Insulin Human Regular (Insulin -Regular Human 50 Unit/0.5 Ml Ml) 0 unit SQ ACHS [facility]; Protocol Last Admin: 01/11/22 20:07 Dose: 7 unit Nutritional Formula (Ensure Enlive 237 Ml Can) 237 ml PO BID [facility] Last Admin: 01/11/22 20:07 Dose: 237 ml Ondansetron HCl (Ondansetron 4 Mg/2 Ml Vial) 4 mg IV Q6HP PRN PRN Reason: NAUSEA / VOMITING Pantoprazole Sodium ([facility]) [facility] Last Admin: 01/11/22 06:35 Dose: 40 mg Prednisone (Prednisone 20 Mg Tab) 40 mg PO DAILY [facility] Sertraline HCl (Sertraline Hcl 50 Mg Tab) 50 mg PO DAILY [facility] Last Admin: 01/11/22 09:34 Dose: 50 mg Sodium Chloride (Flush Normal Saline 10 Ml) 10 ml IV BID [facility] Last Admin: 01/11/22 20:07 Dose: 10 ml Trimethoprim/Sulfamethoxazole (Smz./Tmp. 800/160 Mg Tablet) 1 tab PO MoWeFr [facility] Last Admin: 01/11/22 13:24 Dose: 1 tab Microbiology Results 12/23/21 20:03 Clean Catch Urine [place] Count - Final <10,000 CFU/ML. 12/23/21 20:03 Clean Catch Urine - Final MIXED TONNY. 12/23/21 19:40 Nasopharnyx Influenza Type A Antigen Screen - Final 12/23/21 19:40 Nasopharnyx Influenza Type B Antigen Screen - Final Assessment/ Plan: Nephrology Dyspnea worse with activity Anorexia +FRANKS Persistent fatigue and weakness No chest pain No acute events overnight Vitals, medications, blood work and imaging reviewed in the chart. NAD. Obese. NCAT. MMM. Neck supple. Normal respiratory effort. RRR. Abd ND. No C/C/E. No rash. AAO. Normal speech. 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, resolving s/p immunosuppressive therapy CKD III with proteinuria Hematuria -No NSAIDs -Renal biopsy reviewed with the pathologist -Continue furosemide -Continue prednisone; S/P Cyclophosphamide Hyponatremia -Encourage nutrition Hyperkalemia -Low potassium diet -Continue furosemide Hyperglycemia in the setting of steroids -Wean prednisone as tolerated -RISS Hypoalbuminemia -Encourage nutrition -IV Albumin prn Anemia in chronic illness Iron Deficiency 13.5% Thrombocytopenia -Monitor CBC -Consider IV iron supplementation Acute hypoxic respiratory failure with ARDS of unclear etiology -Continue Oxygen supplementation -Continue Prednisone
[2022-01-12 01:07] VITALS: O2SAT 95
[2022-01-12 01:09] VITALS: BP 154/72; TEMP 97.5
[2022-01-12] MEDS ORDERED: predniSONE 20 MG TAB PO SCH (09:00)
== END 2022-01-12 00:50 | DRG 871 ==
LOC: ER 18:01 → ERHOLD 12-24 01:30 → 4TH 12-24 14:55 → 3RD-ICU 12-25 21:07 → 4TH 01-08 18:52
PROVIDERS: ADMIT Hospitalist; ATTEND Internal Medicine
PROC: 5A09557 Assistance with Respiratory Ventilation, Greater than 96 Consecutive Hours, Continuous Positive Airway Pressure (ICD-10-PCS; principal; 2021-12-25)
PROC: 30233R1 Transfusion of Nonautologous Platelets into Peripheral Vein, Percutaneous Approach (ICD-10-PCS; 2022-01-07)
DX: A41.9 Sepsis, unspecified organism (principal); N17.0 Acute kidney failure with tubular necrosis; J18.9 Pneumonia, unspecified organism; I50.33 Acute on chronic diastolic (congestive) heart failure; J80 Acute respiratory distress syndrome; I13.0 Hypertensive heart and chronic kidney disease with heart failure and stage 1 through stage 4 chronic kidney disease, or unspecified chronic kidney disease; E87.1 Hypo-osmolality and hyponatremia; Z68.41 Body mass index [BMI] 40.0-44.9, adult; N18.30 Chronic kidney disease, stage 3 unspecified; F41.9 Anxiety disorder, unspecified; D63.8 Anemia in other chronic diseases classified elsewhere; D63.1 Anemia in chronic kidney disease; E87.6 Hypokalemia; D50.9 Iron deficiency anemia, unspecified; R94.4 Abnormal results of kidney function studies; R31.9 Hematuria, unspecified; R19.7 Diarrhea, unspecified; D69.6 Thrombocytopenia, unspecified; R73.9 Hyperglycemia, unspecified; E87.5 Hyperkalemia; T38.0X5A Adverse effect of glucocorticoids and synthetic analogues, initial encounter; E88.09 Other disorders of plasma-protein metabolism, not elsewhere classified; R65.20 Severe sepsis without septic shock; R63.0 Anorexia; Z88.8 Allergy status to other drugs, medicaments and biological substances; Z79.52 Long term (current) use of systemic steroids; Z90.49 Acquired absence of other specified parts of digestive tract; Z79.899 Other long term (current) drug therapy; Z20.822 Contact with and (suspected) exposure to COVID-19
CPT/HCPCS: 36415; 36430; 71045; 71275; 76770; 80048; 80053; 80061; 80074; 80202; 81001; 81015; 82043; 82570; 82595; 82728; 82784; 82805; 82947; 83036; 83520; 83540; 83605; 83735; 83880; 84100; 84145; 84156; 84165; 84466; 84484; 84550; 85025; 85027; 85049; 85379; 85610; 85652; 85730; 86021; 86022; 86038; 86060; 86140; 86160; 86225; 86235; 86335; 86430; 86850; 86900; 86901; 87040; 87086; 87088; 87389; 87804; 88300; 93005; 93306; 93970; 94002; 94003; 94660; 94760; 97110; 97116; 97161; 97530; 99284; C9113; J0360; J0692; J1100; J1650; J1815; J1940; J2250; J2405; J2916; J2930; J3010; J3370; J7040; J7050; J7512; J7614; J9070; P9035; P9073; P9100; Q9967; U0003